=== PATIENT | female | born 1945 | race Caucasian/White ===

== ENCOUNTER 2016-06-23 11:53 | Outpatient (CLI) | payer MEDICARE | END 2016-06-23 11:54 | disposition home or self-care (01) | DX: Z12.31 Encounter for screening mammogram for malignant neoplasm of breast (principal) ==

== ENCOUNTER 2016-10-06 14:23 | Outpatient (CLI) | payer MEDICARE | END 2016-10-06 14:24 | disposition home or self-care (01) | DX: K50.90 Crohn's disease, unspecified, without complications (principal); E78.00 Pure hypercholesterolemia, unspecified; E55.9 Vitamin D deficiency, unspecified ==

== ENCOUNTER 2017-10-23 08:18 | Outpatient (CLI) | payer MEDICARE ==
[2017-10-23 10:47] LABS: CHOLESTEROL 248 mg/dL; GLUCOSE,FASTING 101 mg/dL (70-100); HDL CHOLESTEROL 123 mg/dL; LDL CHOLESTEROL,CALCULATED 116 mg/dL; LDL/HDL RATIO 0.9 (<4.4); VLDL CHOLESTEROL 9 mg/dL
== END 2017-10-23 08:19 | disposition home or self-care (01) ==
LOC: LAB.F 08:18
PROVIDERS: ATTEND Internal Medicine
DX: Z13.220 Encounter for screening for lipoid disorders (principal); Z13.1 Encounter for screening for diabetes mellitus
CPT/HCPCS: 36415; 80061; 82947; 83721

== ENCOUNTER 2017-12-24 14:31 | Outpatient (CLI) | payer MEDICARE ==
--- NOTE | 2017-12-26 08:50 | Mammography Report ---
Procedure Date: 12/24/2017 Accession Number: [id number] / [id number] Procedure: MARCELO - Screening Mammo Dig Bilat CPT Code: FULL RESULT: EXAM: Screening Mammo Dig Bilat DATE: 12/24/2017 2:52 PM CLINICAL HISTORY: 72-year-old female with family history of breast cancer in an aunt at unknown age. TECHNIQUE: Bilateral CC and MLO views were obtained. COMPARISON: 06/23/2016, 09/15/2014, 06/09/2013, 06/06/2012. FINDINGS: The breasts demonstrate heterogeneously dense fibroglandular parenchyma bilaterally. Coarse typically benign calcifications are seen in the right breast. There are no suspicious masses, clustered microcalcifications, or regions of architectural distortion in the right breast. In the inner lower quadrant of the left breast is a cluster of increasing microcalcifications in an area of overall stable architectural distortion. Additional views of this region are needed. IMPRESSION: Incomplete examination RECOMMENDATION: Additional evaluation as above. BIRADS CATEGORY 0: Incomplete examination STANDARD QUALIFYING STATEMENTS: 1. This examination was reviewed with the aid of Computer-Aided Detection (CAD). 2. A negative or benign imaging report should not delay biopsy if clinically suspicious findings are present. Consider surgical consultation if warrented. More than 5% of cancers are not identified by imaging. 3. Dense breasts may obscure an underlying neoplasm.
== END 2017-12-24 14:32 | disposition home or self-care (01) ==
LOC: DI 14:31
PROVIDERS: ATTEND Internal Medicine
DX: Z12.31 Encounter for screening mammogram for malignant neoplasm of breast (principal); Z80.3 Family history of malignant neoplasm of breast; Z78.0 Asymptomatic menopausal state
CPT/HCPCS: 77067

== ENCOUNTER 2017-12-24 14:34 | Outpatient (CLI) | payer MEDICARE ==
--- NOTE | 2017-12-25 09:29 | DEXA Report ---
Procedure Date: 12/24/2017 Accession Number: [id number] / [id number] Procedure: DEX - Dexa Spine and/or Hip CPT Code: FULL RESULT: EXAM: Dexa Spine and/or Hip DATE: 12/24/2017 3:15 PM CLINICAL HISTORY: MTOMPATIC MENOPAUSAL STATE/SCREENING FOR OSTEOPORO TECHNIQUE: Dual energy x-ray absorptiometry (DXA) was performed on a [employer] System. Regions measured are the AP Spine, femoral neck, and if needed forearm. COMPARISON: None. In accordance with the International Society for Clinical Densitometry (ISCD) guidelines, data from previous exams may be reanalyzed using current recommendations and techniques. This is done to allow a more accurate basis for comparison with the current study. FINDINGS: The data for the lumbar spine is as follows: BMD (g/cm/cm) T-SCORE Z-SCORE REGION L1 0.806 -2.7 -0.5 L2 0.846 -2.9 -0.7 L3 0.932 -2.2 0.0 L4 0.893 -2.6 -0.4 TOTAL 0.874 -2.6 -0.4 NOTE: All evaluable vertebrae are used for classification The data for the hip is as follows: BMD (g/cm/cm) T-SCORE Z-SCORE REGION Neck 0.689 -2.5 -0.4 TOTAL 0.737 -2.1 -0.2 NOTE: The femoral neck or total proximal femur, whichever is lowest, is used for classification. IMPRESSION: THE WHO CLASSIFICATION BASED ON THE INTERNATIONAL REFERENCE STANDARD IS OSTEOPOROSIS. THE FRACTURE RISK IS HIGH. RECOMMENDATION: Patients with diagnosis of osteoporosis or osteopenia should have regular bone mineral density assessment. For those eligible for Medicare, routine testing is allowed once every 2 years. Testing frequency can be increased for patients who have rapidly progressing disease or for those who are receiving medical therapy to restore bone mass. COMMENT: World Health Organization (WHO) definitions for osteoporosis and osteopenia: NORMAL BMD: T-score at -1.0 or higher, fracture risk is low OSTEOPENIA BMD: T-score between -1.0 and -2.5, fracture risk is increased. OSTEOPOROSIS BMD: T-score at -2.5 or lower, fracture risk is high. National Osteoporosis Foundation recommends: 1. Obtain adequate dietary calcium (at least 1200 mg per day) and vitamin D (400-800 international units per day). 2. Participate, as appropriate, in regular weightbearing and muscle-strengthening exercise. 3. Avoid tobacco use and reduce alcohol and caffeine intake. 4. For more detailed information see the website at www.NOF.org.
== END 2017-12-24 14:35 | disposition home or self-care (01) ==
LOC: DI 14:34
PROVIDERS: ATTEND Internal Medicine
DX: Z13.820 Encounter for screening for osteoporosis (principal); Z78.0 Asymptomatic menopausal state; M81.0 Age-related osteoporosis without current pathological fracture
CPT/HCPCS: 77080

== ENCOUNTER 2018-02-08 13:59 | Outpatient (CLI) | payer MEDICARE ==
--- NOTE | 2018-02-08 15:32 | Mammography Report ---
Reason: ABN MAMMO - LT SPEC VIEWS Procedure Date: 02/08/2018 Accession Number: [id number] / [id number] Procedure: MARCELO - Diag Special Views Dig LT CPT Code: FULL RESULT: EXAM: Special Views Dig LT DATE: 02/08/2018 2:55 PM CLINICAL HISTORY: Microcalcifications on screening mammogram TECHNIQUE: Left true lateral and magnification views. COMPARISON: 12/24/2017 FINDINGS: Microcalcifications described on the 12/24/2017 mammogram report are not definitely seen on magnification views. IMPRESSION: Probably benign. RECOMMENDATION: Six-month follow-up left mammogram to include magnification views. BIRADS CATEGORY 3: Probably benign STANDARD QUALIFYING STATEMENTS: 1. This examination was reviewed with the aid of Computer-Aided Detection (CAD). 2. A negative or benign imaging report should not delay biopsy if clinically suspicious findings are present. Consider surgical consultation if warrented. More than 5% of cancers are not identified by imaging. 3. Dense breasts may obscure an underlying neoplasm.
== END 2018-02-08 14:00 | disposition home or self-care (01) ==
LOC: DI 13:59
PROVIDERS: ATTEND Internal Medicine
DX: R92.0 Mammographic microcalcification found on diagnostic imaging of breast (principal)

== ENCOUNTER 2018-10-31 12:24 | Outpatient (CLI) | payer MEDICARE ==
--- NOTE | 2018-10-31 15:04 | Mammography Report ---
Reason: 6 MO F/U CALCIFICATION Procedure Date: 10/31/2018 Accession Number: [id number] / [id number] Procedure: MARCELO - Diagnostic Dig Bilat CPT Code: FULL RESULT: EXAM: Diagnostic Dig Bilat DATE: 10/31/2018 1:27 PM CLINICAL HISTORY: Follow-up possible microcalcifications. TECHNIQUE: (B) - Bilateral CC and MLO views were obtained. COMPARISON: 02/08/2018, 12/24/2017, 06/23/2016, 09/15/2014 PARENCHYMAL PATTERN: (D) - The breasts demonstrate heterogeneously dense fibroglandular parenchyma bilaterally. FINDINGS: There has been no significant interval change. There are no suspicious masses, calcifications, or areas of distortion. Again no definite microcalcifications are seen in the left lower inner quadrant. IMPRESSION: Negative examination. BI-RADS category 1. RECOMMENDATION: (ANNUAL) - Recommend routine annual screening mammography. BI-RADS CATEGORY: (1) - Negative. STANDARD QUALIFYING STATEMENTS: 1. This examination was not reviewed with the aid of Computer-Aided Detection (CAD). 2. A negative or benign imaging report should not preclude biopsy if clinically suspicious findings are present. 3. Dense breasts may obscure an underlying neoplasm. 4. This examination was reviewed with the aid of 3D breast imaging (tomosynthesis).
== END 2018-10-31 12:25 | disposition home or self-care (01) ==
LOC: DI 12:24
PROVIDERS: ATTEND Internal Medicine
DX: R92.8 Other abnormal and inconclusive findings on diagnostic imaging of breast (principal)
CPT/HCPCS: 77066; G0279; 77062

== ENCOUNTER 2019-02-18 07:46 | Outpatient (CLI) | payer MEDICARE ==
[2019-02-18 10:00] LABS: BASOPHILS # (AUTO) 0.1 10^3/uL (0.0-0.1); BASOPHILS % (AUTO) 2.1 %; EOSINOPHILS # (AUTO) 0.1 10^3/uL (0.0-0.7); EOSINOPHILS % (AUTO) 2.9 %; LYMPHOCYTES # (AUTO) 1.3 10^3/uL (1.5-3.5); LYMPHOCYTES % (AUTO) 33.7 %; MEAN CORPUSCULAR HGB CONC 31.8 g/dL (32.0-36.0); MEAN CORPUSCULAR VOLUME 94.2 fL (81.0-99.0); MEAN PLATELET VOLUME 10.6 fL (7.9-10.8); MONOCYTES # (AUTO) 0.3 10^3/uL (0.0-1.0); MONOCYTES % (AUTO) 8.4 %; NEUTROPHILS % (AUTO) 52.6 %; PLT - PLATELET COUNT 222 10^3/uL (130-450); RED BLOOD COUNT 4.34 10^6/uL (4.20-5.40); RED CELL DISTRIBUTION WIDTH 12.7 % (12.0-15.0); WHITE BLOOD COUNT 3.8 x10^3/uL (4.8-10.8)
[2019-02-18 10:11] LABS: HB2 TOTAL 13.7 g/dL; HEMOGLOBIN A1C 0.51 g/dL; HEMOGLOBIN A1C % 5.6 % (4.6-6.2)
[2019-02-18 10:32] LABS: ALBUMIN 4.2 g/dL (3.2-5.5); ALBUMIN/GLOBULIN RATIO 1.7 (1.0-2.2); ALKALINE PHOSPHATASE 65 IU/L (42-121); ALT ALANINE AMINOTRANSFERASE 18 IU/L (10-60); AST ASPARTATE AMINOTRANSFERASE 24 IU/L (10-42); BILIRUBIN,TOTAL 0.8 mg/dL (0.2-1.0); BUN - BLOOD UREA NITROGEN 17 mg/dL (6-20); CALCIUM 8.8 mg/dL (8.5-10.3); CARBON DIOXIDE - CO2 30 mmol/L (21-32); CHLORIDE 100 mmol/L (101-111); CHOL/HDL RATIO 1.8 (<4.4); CHOLESTEROL 244 mg/dL; CREATININE 0.5 mg/dL (0.4-1.0); GFR - MDRD 121 (>89); GLUCOSE 104 mg/dL (70-100); HDL CHOLESTEROL 134 mg/dL; SODIUM 137 mmol/L (135-145); TOTAL PROTEIN 6.7 g/dL (6.7-8.2)
== END 2019-02-18 07:47 | disposition home or self-care (01) ==
LOC: LAB.S 07:46
PROVIDERS: ATTEND Internal Medicine
DX: E78.5 Hyperlipidemia, unspecified (principal); R73.01 Impaired fasting glucose; K50.90 Crohn's disease, unspecified, without complications
CPT/HCPCS: 36415; 80053; 80061; 83036; 83721; 85025

== ENCOUNTER 2019-03-03 18:09 | Inpatient (IN) | payer MEDICARE ==
[2019-03-03 19:09] LABS: BASOPHILS # (AUTO) 0.1 10^3/uL (0.0-0.1); BASOPHILS % (AUTO) 0.7 %; EOSINOPHILS % (AUTO) 0.1 %; HGB - HEMOGLOBIN 14.7 g/dL (12.0-16.0); LYMPHOCYTES % (AUTO) 8.4 %; MEAN CORPUSCULAR HEMOGLOBIN 31.1 pg (27.0-31.0); MEAN CORPUSCULAR HGB CONC 33.5 g/dL (32.0-36.0); MEAN PLATELET VOLUME 10.5 fL (7.9-10.8); MONOCYTES # (AUTO) 0.4 10^3/uL (0.0-1.0); MONOCYTES % (AUTO) 3.6 %; NEUTROPHILS # (AUTO) 10.2 10^3/uL (1.5-6.6); NEUTROPHILS % (AUTO) 86.6 %; PLT - PLATELET COUNT 248 10^3/uL (130-450); RED BLOOD COUNT 4.72 10^6/uL (4.20-5.40); RED CELL DISTRIBUTION WIDTH 12.4 % (12.0-15.0); WHITE BLOOD COUNT 11.8 x10^3/uL (4.8-10.8)
[2019-03-03 19:22] LABS: ALBUMIN 4.8 g/dL (3.2-5.5); ALBUMIN/GLOBULIN RATIO 2.1 (1.0-2.2); BILIRUBIN,TOTAL 0.8 mg/dL (0.2-1.0); CALCIUM 9.5 mg/dL (8.5-10.3); CREATININE 0.6 mg/dL (0.4-1.0); TOTAL PROTEIN 7.1 g/dL (6.7-8.2)
[2019-03-03 20:33] LABS: GLUCOSE, URINE (UA) NEGATIVE (NEGATIVE); KETONES,URINE (UA) 15 mg/dL (NEGATIVE); LEUKOCYTE ESTERASE, URINE NEGATIVE (NEGATIVE); NITRITE,URINE NEGATIVE (NEGATIVE); OCCULT BLOOD,URINE TRACE-INTA (NEGATIVE); PH,URINE 5.5 PH (5.0-7.5); PROTEIN,URINE NEGATIVE (NEGATIVE); UROBILINOGEN,URINE 0.2 (NORMAL) E.U./dL (NORMAL)
[2019-03-03] MEDS ORDERED: ONDANSETRON 4 MG/2 ML VIAL IVP STA (20:33)
[2019-03-03] MEDS ORDERED: SODIUM CHLORIDE 0.9% 1,000 ML IV ONE ×2 (20:33→21:10)
[2019-03-03] MEDS ORDERED: MORPHINE 2 MG/ML CARPUJECT IVP STA (20:33)
[2019-03-03 20:35] LABS: BILIRUBIN,URINE NEGATIVE (NEGATIVE); CLARITY,URINE CLEAR (CLEAR); ICTOTEST,URINE NEGATIVE
--- NOTE | 2019-03-03 20:36 | ED Physician Documentation ---
PD HPI ABD PAIN - Stated complaint Stated Complaint: ABD PAIN - Chief complaint Chief Complaint: Abd Pain - History obtained from History obtained from: Patient - History of Present Illness Timing - onset: Today (since this morning) Timing - duration: Days (1) Timing - details: Gradual onset Pain level max: 7 Pain level now: 7 Severity Comments: moderate severity Quality: Sharp Location: LLQ Radiation: Lower back, Left flank, Other Improved by: No: Eating, Laying still, Vomiting, BM Associated symptoms: Nausea, Vomiting, Diarrhea. No: Hematemesis, Constipation, Melena, Hematochezia, Dysuria, Hematuria, Dizzy, Near syncope / syncope, Loss of appetite, Weight loss, Vaginal bleeding Similar symptoms before: Other (has a hx of Crohns but reports pain today is worse than normal) Recently seen: Not recently seen PD PAST MEDICAL HISTORY - Past Medical History Cardiovascular: None Respiratory: None Endocrine/Autoimmune: None GI: Colon polyps, Chronic diarrhea, Crohn's disease : Kidney stones HEENT: Dental implants Psych: None Musculoskeletal: Osteoarthritis, Gout Derm: Eczema - Past Surgical History General: Bowel surgery, Colonoscopy HEENT: Tonsil/Adenoidectomy Derm: Skin cancer surgery - Present Medications Home Medications: Ambulatory Orders Medication Instructions Recorded Confirmed Cholecalciferol (Vitamin D3) 2,000 unit PO DAILY 06/08/14 06/08/14 [Vitamin D] HYDROcod/ACETAM 5/325 [[place] 5/325] 1 - 2 ea PO Q6H PRN #20 tablet 06/10/15 - Allergies Allergies/Adverse Reactions: Allergies Allergy/AdvReac Type Severity Reaction Status Date / Time No Known Drug Allergies Allergy Verified 06/08/14 09:28 - Social History Does the pt smoke?: No Smoking Status: Never smoker Results - Vitals Vitals: Vital Signs - 24 hr 03/03/19 03/03/19 18:50 20:26 Temperature 36.4 C L 36.7 C Heart Rate 92 91 Respiratory 18 17 Rate Blood Pressure 147/86 H 158/86 H O2 Saturation 100 98 Oxygen O2 Source Room air - Labs Labs: Laboratory Tests 03/03/19 03/03/19 03/03/19 18:55 18:55 20:20 WBC 11.8 H RBC 4.72 Hgb 14.7 Hct 43.9 MCV 93.0 MCH 31.1 H MCHC 33.5 RDW 12.4 Plt Count 248 MPV 10.5 Neut # (Auto) 10.2 H Lymph # (Auto) 1.0 L Wilson # (Auto) 0.4 Eos # (Auto) 0.0 Baso # (Auto) 0.1 Absolute Nucleated RBC 0.00 Nucleated RBC % 0.0 Sodium 141 Potassium 4.4 Chloride 100 L Carbon Dioxide 30 Anion Gap 11.0 BUN 14 Creatinine 0.6 Estimated GFR (MDRD) 98 Glucose 129 H Calcium 9.5 Total Bilirubin 0.8 AST 25 ALT 19 Alkaline Phosphatase 67 Total Protein 7.1 Albumin 4.8 Globulin 2.3 Albumin/Globulin Ratio 2.1 Lipase 38 Urine Color YELLOW Urine Clarity CLEAR Urine pH 5.5 Ur Specific [place] >=1.030 H Urine Protein NEGATIVE Urine Glucose (UA) NEGATIVE Urine Ketones 15 H Urine Occult Blood TRACE-INTA Urine Nitrite NEGATIVE Urine Bilirubin NEGATIVE Urine Urobilinogen 0.2 (NORMAL) Ur Leukocyte Esterase NEGATIVE Ur Microscopic Review NOT INDICATED Urine Culture Comments NOT INDICATED - Rads (name of study) CT abd/pelvis Radiology: Final report received, Discussed with rads, See rad report PD MEDICAL DECISION MAKING - ED course Complexity details: reviewed old records, reviewed results, re-evaluated patient, considered differential, d/w patient, d/w family ED course: ddx- kidney stone, diverticulitis, SBO, AAA 73 y/o F with hx of Crohn's, chronic diarrhea, with vomiting today - LLQ tenderness on examination, mild leukocytosis, given IV fluids Reports hx of kidney stones and feels this might be a stone but CT abd/pelvis shows SBO with a transition point likely due to adhesions. Consulted Dr. Fletcher who will evaluate the pt. She is feeling better after analgesics and antiemetics. Placed an NGT. Give maintenance fluids and admitted to medicine - Critical Care Time(min): 30 Time Includes: Direct patient care, Review records, Reassess patient, Document care, Coordinate care, Medical consult Data interpretation: Labs Departure - Departure Disposition: 66 [facility] DC/Xfer Clinical Impression: Small bowel obstruction due to adhesions Condition: Stable Record reviewed to determine appropriate education?: Yes
[2019-03-03] MEDS ORDERED: IOVERSOL 320 100 ML VIAL IVP ONE (20:52)
[2019-03-03] MEDS: IOVERSOL 320 100 ML VIAL IVP ONE (20:54)
--- NOTE | 2019-03-03 21:32 | CT Report ---
Reason: LLQ pain, tenderness, vomiting, hx of crohns Procedure Date: 03/03/2019 Accession Number: [id number] / [id number] Procedure: CT - Abdomen/Pelvis W CPT Code: FULL RESULT: EXAM: CT ABDOMEN AND PELVIS EXAM DATE: 03/03/2019 08:58 PM. CLINICAL HISTORY: LLQ pain, tenderness, vomiting, hx of crohns. COMPARISONS: ABDOMEN/PELVIS W/O 05/13/2014 7:00 PM. TECHNIQUE: Routine helical CT imaging was performed through the abdomen and pelvis. IV contrast: Optiray 320, 100 cc. Enteric contrast: No. Reconstructions: Coronal and sagittal. In accordance with CT protocol optimization, one or more of the following dose reduction techniques were utilized for this exam: automated exposure control, adjustment of mA and/or KV based on patient size, or use of iterative reconstructive technique. FINDINGS: Lung Bases: Unremarkable. Liver: View scattered hepatic cysts are not significantly changed compared to the prior exam. Trace amount of perihepatic fluid. Gallbladder/Bile Ducts: Unremarkable. Spleen: Normal. Pancreas: Normal. Adrenal Glands: Normal. Kidneys: Normal. No masses or hydronephrosis. Peritoneal Cavity/Bowel: Dilated small bowel throughout much of the abdomen, with transition point in the pelvis, image number 64 Of series 4. Bowel measures up to 3.8 cm in caliber. Patient is status post subtotal colectomy. Anastomotic bowel sutures are present in the pelvis. No free air. Pelvic Organs: Urinary bladder and uterus are unremarkable. Trace amount of free fluid in the pelvis. Vasculature: No aneurysms or other significant abnormality. Bones: No significant abnormality. Other: None. IMPRESSION: Small bowel obstruction with transition point in the pelvis, but separate from the bowel anastomotic site. Suspect adhesion. No free air. Trace amount of free fluid and perihepatic fluid. RADIA The call report notification system was initiated by Dr. Abdoulaye Marie at 09:26 PM on 03/03/2019. The above call report findings were discussed with Kena Turcios by Dr. Abdoulaye Marie at 09:30 PM on 03/03/2019.
[2019-03-03] MEDS ORDERED: MIDAZOLAM 2 MG/2 ML VIAL IVP STA (21:53)
[2019-03-03] MEDS: SODIUM CHLORIDE 0.9% 1,000 ML IV SCH (22:49)
--- NOTE | 2019-03-03 23:46 | HISTORY & PHYSICAL EXAMINATION ---
Chief Complaint - Chief Complaint Chief Complaint: abd pain History of Present Illness - Admitted From Admitted From:: [facility] - History Obtained From Records Reviewed: yes History obtained from: patient - History of Present Illness HPI Comment/Other: Patient seen on 03/03/19 around 23:))pm Patient is a 73 y/o female with Crohns disease s/p partial colectomy in 1990 who presented to the ED with complain of diffuse abdominal pain which is throbbing in nature with radiation to her back. It stated today. Yesterday she had dinner consisting of mussels, clams and veggies. She had diarrhea yesterday but was not alarmed because she has frequent bouts of diarrhea in relation to her crohns. However she decided to come to the ED when her pain seemed to be getting worse. She thinks she may have had a similar episode in 2016. She denies chest pain or dyspnea. She started getting nauseous and vomited upon arrival to the ED. Work up included a CT of the abd/pelvis which showed a small bowel obstruction. She is not on any medications for crohn's and has been fairly well controlled without. As a result she is being admitted for further treatment. History - Past Medical History Cardiovascular: reports: None Respiratory: reports: None Endocrine/Autoimmune: reports: None GI: reports: Colon polyps, Chronic diarrhea, Crohn's disease : reports: Kidney stones HEENT: reports: Dental implants Psych: reports: None Musculoskeletal: reports: Osteoarthritis, Gout Derm: reports: Eczema MRSA Hx?: No - Past Surgical History General: reports: Bowel surgery (partial colectomy), Colonoscopy HEENT: reports: Tonsil/Adenoidectomy Derm: reports: Skin cancer surgery - Family & Social History Family History: Mother: , CVA/TIA Living arrangement: At home Living Situation: With spouse/s.o. Social History Notes: Denies tobacco or illicit drugs use. Usually drinks 1 glass of wine with dinner. - POLST Patient has POLST: No POLST Status: Full Code Meds/Allgy - Home Medications Home Medications: Ambulatory Orders Medication Instructions Recorded Confirmed Cholecalciferol (Vitamin D3) 2,000 unit PO DAILY 06/08/14 06/08/14 [Vitamin D] HYDROcod/ACETAM 5/325 [[place] 5/325] 1 - 2 ea PO Q6H PRN #20 tablet 06/10/15 - Allergies Allergies/Adverse Reactions: Allergies Allergy/AdvReac Type Severity Reaction Status Date / Time No Known Drug Allergies Allergy Verified 06/08/14 09:28 Review of Systems - Constitutional Constitutional: reports: Chills. denies: Fatigue, Fever - Eyes Eyes: denies: Blurred vision, Vision loss, Dipolpia - Ears, Nose & Throat Ears, Nose & Throat: denies: Ear pain, Vertigo, Sore throat, Hoarseness - Cardiovascular Cariovascular: denies: Irregular heart rate, Palpitations, Chest pain, Edema, Lightheadedness, Syncope, Exertional dyspnea, Decr. exercise tolerance - Respiratory Respiratory: denies: Cough, Sputum production, Wheezing, Hemoptysis, Orthopnea, SOB at rest, SOB with exertion - Gastrointestinal Gastrointestinal: reports: Abdominal pain, Diarrhea, Nausea, Vomiting. denies: Abdominal distention, Constipation, Rectal bleeding, Black stools, Coffee grounds emesis, Reflux/heartburn - Genitourinary Genitourinary: denies: Dysuria, Frequency, Urgency, Hematuria - Musculoskeletal Musculoskeletal: denies: Muscle pain, Back pain, Muscle aches - Integumentary Integumentary: denies: Rash, Pruritis, Lesions - Neurological Neurological: denies: General weakness, Focal weakness, Headache, Dizziness - Psychiatric Psychiatric: denies: Depression, Anxiety - Endocrine Endocrine: denies: Polyuria, Polydypsia - Hematologic/Lymphatic Hematologic/Lymphatic: denies: Anemia, Bruising, Petechiae Prior Level of Functionality: Patient is independent of activities of daily living Exam - Vital Signs Vital Signs: Vital Signs x48h Temp Pulse Resp BP Pulse Ox 03/03/19 22:02 82 18 133/67 H 98 03/03/19 20:26 36.7 C 91 17 158/86 H 98 03/03/19 18:50 36.4 C L 92 18 147/86 H 100 - Physical Exam General Appearance: positive: Moderate distress. negative: Anxious, Lethargic Eyes Bilateral: positive: Normal inspection, PERRL, EOMI ENT: positive: ENT inspection nml, Pharynx nml Neck: positive: Nml inspection, Trachea midline. negative: No JVD Respiratory: positive: Chest non-tender, No respiratory distress, Breath sounds nml. negative: Wheezes, Rales, Rhonchi Cardiovascular: positive: Regular rate & rhythm, No murmur Abdomen: positive: No organomegaly, No distention, Tenderness, Other (decreased bowel sounds). negative: Guarding, Rebound Back: positive: Nml inspection Skin: positive: Color nml, No rash, Warm, Dry Extremities: positive: Non-tender, Full ROM, Nml appearance, No pedal edema Neurologic/Psychiatric: positive: Oriented x3, CN's nml (2-12), Motor nml, Sensation nml, Mood/affect nml Conclusion/Plan - Problem List (1) Small bowel obstruction due to adhesions Conclusion/Plan: NPO. IV hydration. IV Pain management and management of nausea. General surgery is away of patient's presentation (2) Crohn disease Conclusion/Plan: s/p partial colectomy in 1990. Patient has been stable since. Not on any medication - Lab Results Fish Bones: 03/03/19 18:55 03/03/19 18:55 Core Measures - Anticipated LOS I expect patient to be DC'd or transferred within 96 hours.: Yes - DVT/VTE - Prophylaxis VTE/DVT Device ordered at admit?: Yes
[2019-03-03] MEDS ORDERED: HYDROmorphone 2 MG/ML VIAL IVP PRN (23:48)
[2019-03-04] MEDS: SODIUM CHLORIDE FLUSH 0.9% 10 ML SYRINGE IVP SCH ×4 (02:28→23:31)
[2019-03-04] MEDS: SODIUM CHLORIDE 0.9% 1,000 ML IV SCH ×3 (02:33→10:48)
[2019-03-04] MEDS: SODIUM CHLORIDE FLUSH 0.9% 10 ML SYRINGE IVP PRN ×2 (04:45→06:23)
[2019-03-04 04:58] LABS: BASOPHILS # (AUTO) 0.1 10^3/uL (0.0-0.1); BASOPHILS % (AUTO) 0.6 %; EOSINOPHILS # (AUTO) 0.1 10^3/uL (0.0-0.7); EOSINOPHILS % (AUTO) 0.9 %; HGB - HEMOGLOBIN 13.6 g/dL (12.0-16.0); LYMPHOCYTES # (AUTO) 0.4 10^3/uL (1.5-3.5); LYMPHOCYTES % (AUTO) 4.3 %; MEAN CORPUSCULAR HEMOGLOBIN 31.4 pg (27.0-31.0); MEAN CORPUSCULAR HGB CONC 33.7 g/dL (32.0-36.0); MEAN CORPUSCULAR VOLUME 93.1 fL (81.0-99.0); MEAN PLATELET VOLUME 10.7 fL (7.9-10.8); MONOCYTES # (AUTO) 0.3 10^3/uL (0.0-1.0); MONOCYTES % (AUTO) 3.8 %; NEUTROPHILS # (AUTO) 8.1 10^3/uL (1.5-6.6); PLT - PLATELET COUNT 196 10^3/uL (130-450); RED BLOOD COUNT 4.33 10^6/uL (4.20-5.40); RED CELL DISTRIBUTION WIDTH 12.3 % (12.0-15.0)
[2019-03-04 05:37] LABS: CALCIUM 8.9 mg/dL (8.5-10.3); CREATININE 0.5 mg/dL (0.4-1.0)
[2019-03-04] MEDS: PANTOPRAZOLE 40 MG VIAL IVP SCH (06:22)
[2019-03-04] MEDS: POLYETHYLENE GLYCOL 3350 17 GM PACKET PO SCH (08:14)
[2019-03-04] MEDS ORDERED: HYDROmorphone 0.5 MG/0.5 ML SYRINGE IVP PRN ×2 (09:00→18:24)
[2019-03-04] MEDS ORDERED: IOVERSOL 320 100 ML VIAL IVP ONE (09:25)
[2019-03-04] MEDS ORDERED: IOVERSOL 320 50 ML VIAL ONE (09:26)
[2019-03-04] MEDS: ONDANSETRON 4 MG/2 ML VIAL IVP PRN (10:21)
--- NOTE | 2019-03-04 12:40 | CT Report ---
Reason: CHECK FOR RESOLUTION OF SBO Procedure Date: 03/04/2019 Accession Number: [id number] / [id number] Procedure: CT - Abdomen/Pelvis W CPT Code: FULL RESULT: EXAM: CT ABDOMEN AND PELVIS EXAM DATE: 03/04/2019 12:11 PM. CLINICAL HISTORY: CHECK FOR RESOLUTION OF SBO. COMPARISONS: CT abdomen and pelvis 03/03/2019. TECHNIQUE: Routine helical CT imaging was performed through the abdomen and pelvis. IV contrast: OPTI 320 100ML. Enteric contrast: No. Reconstructions: Coronal and sagittal. In accordance with CT protocol optimization, one or more of the following dose reduction techniques were utilized for this exam: automated exposure control, adjustment of mA and/or KV based on patient size, or use of iterative reconstructive technique. FINDINGS: Lung Bases: Unremarkable. Liver: No suspicious abnormality. Multiple small hepatic cysts of no significance. Gallbladder/Bile Ducts: Unremarkable. Spleen: Normal. Pancreas: Normal. Adrenal Glands: Normal. Kidneys: Normal. No masses or hydronephrosis. Peritoneal Cavity/Bowel: There has been interval development of mild manny-hepatic ascites. There is no other evidence of ascites. There is been a subtotal colectomy. There appears to be a distal colonic-ileal anastomosis. There is no significant proximal jejunal dilatation. Beyond this point there is marked mid and distal small bowel dilatation with probable transition point in the distal ileum near or at the ileocolonic anastomosis (axial image 61, series 3 and coronal image 26, series 5). The rectosigmoid colon is decompressed. No evidence of free air or pneumatosis Pelvic Organs: Normal. The bladder and visualized pelvic organs are within normal limits. Vasculature: No aneurysms or other significant abnormality. Bones: No significant abnormality. Other: None. IMPRESSION: 1. Mechanical distal small bowel obstruction with transition point presumably at ileocolic surgical anastomosis, as described above. 2. No evidence of pneumoperitoneum or pneumatosis. 3. Interval development of mild perihepatic ascites. RADIA
[2019-03-04] MEDS: D5.45NS W/20 MEQ KCL 1,000 ML IV SCH (13:41)
[2019-03-04] MEDS ORDERED: IOVERSOL 320 50 ML VIAL PO ONE (14:45)
[2019-03-04] MEDS: IOVERSOL 320 100 ML VIAL IVP ONE (14:46)
--- NOTE | 2019-03-04 14:59 | PROVIDER PROGRESS NOTE ---
Subjective - Prog Note Date Prog Note Date: 03/04/19 - Subjective Pt reports feeling: Improved Subjective: clinically pt report her abdominal pain is better, and she did not nausea and vomiting in the morning. but new CT of abdomen still reveals pt has SBO. Current Medications - Current Medications Current Medications: Active Medications Hydromorphone HCl (Dilaudid Inj Syringe) 0.5 mg IVP Q2H PRN PRN Reason: PAIN Potassium Chloride/Dextrose/Sod Cl (D5.45ns W/20 Meq Kcl) 1,000 mls @ 100 mls/hr IV .Q10H [facility] Last Admin: 03/04/19 13:41 Dose: 100 mls/hr Ondansetron HCl (Zofran Inj) 4 mg IVP Q6HR PRN PRN Reason: Nausea / Vomiting Last Admin: 03/04/19 10:21 Dose: 4 mg Pantoprazole Sodium (Protonix) 40 mg IVP QDAC [facility] Last Admin: 03/04/19 06:22 Dose: 40 mg Polyethylene Glycol (Miralax) 17 gm PO DAILY [facility] Last Admin: 03/04/19 08:14 Dose: Not Given Sodium Chloride (Normal Saline Flush 0.9%) 10 ml IVP PRN PRN PRN Reason: NEEDED PER PROVIDER ORDERS Last Admin: 03/04/19 06:23 Dose: 10 ml Sodium Chloride (Normal Saline Flush 0.9%) 10 ml IVP 0100,0900,1700 [facility] Last Admin: 03/04/19 08:18 Dose: 10 ml Cholecalciferol (Vitamin D3) [Vitamin D] 2,000 unit PO DAILY 06/08/14 D-Mannose [Mannxtra] 1 tab PO UD 03/04/19 Multivitamin,Therapeutic [Thera] 1 each PO DAILY 03/04/19 Objective - Vital Signs/Intake & Output Reviewed Vital Signs: Yes Vital Signs: Vital Signs x48h Temp Pulse Resp BP Pulse Ox 03/04/19 11:51 37.4 C 87 18 138/60 H 96 03/04/19 07:49 37.6 C H 86 16 140/65 H 95 Intake & Output: Intake & Output 03/01/19 03/02/19 03/03/19 03/04/19 23:59 23:59 23:59 23:59 Intake Total 1999 2268 Output Total 900 Balance 1999 1369 - Objective General Appearance: positive: No acute distress, Alert. negative: Lethargic Eyes Bilateral: positive: Normal inspection, PERRL, No lid inflammation, Conjun ctivae nml ENT: positive: ENT inspection nml, Pharynx nml, No signs of dehydration. negative: Purulent nasal drainage, Pharyngeal erythema, Oral lesions Neck: positive: Nml inspection, Thyroid nml, Trachea midline. negative: Thyromegaly, Lymphadenopathy (R), Lymphadenopathy (L), Stiff neck, Swelling/bruising, Tracheal deviation Respiratory: positive: Chest non-tender, No respiratory distress, Breath sounds nml. negative: Wheezes, Rales, Rhonchi Cardiovascular: positive: Regular rate & rhythm, No murmur, No gallop. negative: Irregularly irregular, Extrasystoles, Tachycardia, Bradycardia, JVD present, Systolic murmur, Diastolic murmur Peripheral Pulses: 2+ Radial (R), 2+ Radial (L), 2+ Dorsalis pedis (R), 2+ Dorsalis pedis (L) Abdomen: positive: Non-tender, No organomegaly, No distention, Abnml bowel sounds (hypoactive bowel sound). negative: Tenderness, Guarding, Rebound Back: positive: Nml inspection. negative: CVA tenderness (R), CVA tenderness (L) Skin: positive: Color nml, No rash, Warm, Dry. negative: Cyanosis, Diaphoresis, Pallor Extremities: positive: Non-tender, Full ROM, Nml appearance. negative: Calf tenderness, Joint swelling, Penny's sign/cords Neurologic/Psychiatric: positive: Oriented x3, Motor nml, Sensation nml, Mood/affect nml. negative: Weakness, Sensory loss, Facial droop, Slurred/abnml speech, Depressed mood/affect - Lab Results Fish Bones: 03/04/19 04:35 03/04/19 04:35 Other Labs: Lab Results x24hrs 03/04/19 03/04/19 03/03/19 Range/Units 04:35 04:35 20:20 WBC 9.0 (4.8-10.8) x10^3/uL RBC 4.33 (4.20-5.40) 10^6/uL Hgb 13.6 (12.0-16.0) g/dL Hct 40.3 (37.0-47.0) % MCV 93.1 (81.0-99.0) fL MCH 31.4 H (27.0-31.0) pg MCHC 33.7 (32.0-36.0) g/dL RDW 12.3 (12.0-15.0) % Plt Count 196 (130-450) 10^3/uL MPV 10.7 (7.9-10.8) fL Neut # (Auto) 8.1 H (1.5-6.6) 10^3/uL Lymph # (Auto) 0.4 L (1.5-3.5) 10^3/uL [place] # (Auto) 0.3 (0.0-1.0) 10^3/uL Eos # (Auto) 0.1 (0.0-0.7) 10^3/uL Baso # (Auto) 0.1 (0.0-0.1) 10^3/uL Absolute Nucleated RBC 0.00 x10^3/uL Nucleated RBC % 0.0 /100WBC Sodium 143 (135-145) mmol/L Potassium 3.5 (3.5-5.0) mmol/L Chloride 109 (101-111) mmol/L Carbon Dioxide 25 (21-32) mmol/L Anion Gap 9.0 (6-13) BUN 14 (6-20) mg/dL Creatinine 0.5 (0.4-1.0) mg/dL Estimated GFR (MDRD) 121 (>89) Glucose 155 H (70-100) mg/dL Calcium 8.9 (8.5-10.3) mg/dL Total Bilirubin (0.2-1.0) mg/dL AST (10-42) IU/L ALT (10-60) IU/L Alkaline Phosphatase (42-121) IU/L Total Protein (6.7-8.2) g/dL Albumin (3.2-5.5) g/dL Globulin (2.1-4.2) g/dL Albumin/Globulin Ratio (1.0-2.2) Lipase (22-51) U/L Urine Color YELLOW Urine Clarity CLEAR (CLEAR) Urine pH 5.5 (5.0-7.5) PH Ur Specific [place] >=1.030 H (1.002-1.030) Urine Protein NEGATIVE (NEGATIVE) mg/dL Urine Glucose (UA) NEGATIVE (NEGATIVE) mg/dL Urine Ketones 15 H (NEGATIVE) mg/dL Urine Occult Blood TRACE-INTA (NEGATIVE) Urine Nitrite NEGATIVE (NEGATIVE) Urine Bilirubin NEGATIVE (NEGATIVE) Urine Urobilinogen 0.2 (NORMAL) (NORMAL) E.U./dL Ur Leukocyte Esterase NEGATIVE (NEGATIVE) Ur Microscopic Review NOT INDICATED Urine Culture Comments NOT INDICATED 03/03/19 03/03/19 Range/Units 18:55 18:55 WBC 11.8 H (4.8-10.8) x10^3/uL RBC 4.72 (4.20-5.40) 10^6/uL Hgb 14.7 (12.0-16.0) g/dL Hct 43.9 (37.0-47.0) % MCV 93.0 (81.0-99.0) fL MCH 31.1 H (27.0-31.0) pg MCHC 33.5 (32.0-36.0) g/dL RDW 12.4 (12.0-15.0) % Plt Count 248 (130-450) 10^3/uL MPV 10.5 (7.9-10.8) fL Neut # (Auto) 10.2 H (1.5-6.6) 10^3/uL Lymph # (Auto) 1.0 L (1.5-3.5) 10^3/uL [place] # (Auto) 0.4 (0.0-1.0) 10^3/uL Eos # (Auto) 0.0 (0.0-0.7) 10^3/uL Baso # (Auto) 0.1 (0.0-0.1) 10^3/uL Absolute Nucleated RBC 0.00 x10^3/uL Nucleated RBC % 0.0 /100WBC Sodium 141 (135-145) mmol/L Potassium 4.4 (3.5-5.0) mmol/L Chloride 100 L (101-111) mmol/L Carbon Dioxide 30 (21-32) mmol/L Anion Gap 11.0 (6-13) BUN 14 (6-20) mg/dL Creatinine 0.6 (0.4-1.0) mg/dL Estimated GFR (MDRD) 98 (>89) Glucose 129 H (70-100) mg/dL Calcium 9.5 (8.5-10.3) mg/dL Total Bilirubin 0.8 (0.2-1.0) mg/dL AST 25 (10-42) IU/L ALT 19 (10-60) IU/L Alkaline Phosphatase 67 (42-121) IU/L Total Protein 7.1 (6.7-8.2) g/dL Albumin 4.8 (3.2-5.5) g/dL Globulin 2.3 (2.1-4.2) g/dL Albumin/Globulin Ratio 2.1 (1.0-2.2) Lipase 38 (22-51) U/L Urine Color Urine Clarity (CLEAR) Urine pH (5.0-7.5) PH Ur Specific [place] (1.002-1.030) Urine Protein (NEGATIVE) mg/dL Urine Glucose (UA) (NEGATIVE) mg/dL Urine Ketones (NEGATIVE) mg/dL Urine Occult Blood (NEGATIVE) Urine Nitrite (NEGATIVE) Urine Bilirubin (NEGATIVE) Urine Urobilinogen (NORMAL) E.U./dL Ur Leukocyte Esterase (NEGATIVE) Ur Microscopic Review Urine Culture Comments ABX Reporting Has patient been on IV antibiotics over the past 48 hours?: No Assessment/Plan - Problem List (1) Small bowel obstruction due to adhesions Impression: 03/04 although clinically pt had improved, reduced abdominal pain, no N/V now. but new CT of abdomen today morning reveals SBO surgeon knew the updated CT result continue NPO encourage ambulate IVF of D5 pain control continue NG tube now (2) Crohn disease Conclusion/Plan: stable. pt is not on any medication. pt report she is s/p partial colectomy in 1990.
--- NOTE | 2019-03-04 15:12 | ANESTHESIA ---
Pre-Anesthesia VS, & Labs - Diagnosis bowel obstruction - Procedure exploratory laparotomy Vital Signs: Temp Pulse Resp BP Pulse Ox 37.4 C 87 18 138/60 H 96 03/04/19 11:51 03/04/19 11:51 03/04/19 11:51 03/04/19 11:51 03/04/19 11:51 Height 5 ft 5 in Weight (kg) 52 kg Body Mass Index 19.1 - Is Patient ?: No - Lab Results Current Lab Results: Laboratory Tests 03/04/19 04:35: Sodium 143, Potassium 3.5, Chloride 109, Carbon Dioxide 25, Anion Gap 9.0, BUN 14, Creatinine 0.5, Estimated GFR (MDRD) 121, Glucose 155 H, Calcium 8.9 03/04/19 04:35: WBC 9.0, RBC 4.33, Hgb 13.6, Hct 40.3, MCV 93.1, MCH 31.4 H, MCHC 33.7, RDW 12.3, Plt Count 196, MPV 10.7, Neut # (Auto) 8.1 H, Lymph # (Auto) 0.4 L, [place] # (Auto) 0.3, Eos # (Auto) 0.1, Baso # (Auto) 0.1, Absolute Nucleated RBC 0.00, Nucleated RBC % 0.0 03/03/19 18:55: Sodium 141, Potassium 4.4, Chloride 100 L, Carbon Dioxide 30, Anion Gap 11.0, BUN 14, Creatinine 0.6, Estimated GFR (MDRD) 98, Glucose 129 H, Calcium 9.5, Total Bilirubin 0.8, AST 25, ALT 19, Alkaline Phosphatase 67, Total Protein 7.1, Albumin 4.8, Globulin 2.3, Albumin/Globulin Ratio 2.1, Lipase 38 03/03/19 18:55: WBC 11.8 H, RBC 4.72, Hgb 14.7, Hct 43.9, MCV 93.0, MCH 31.1 H, MCHC 33.5, RDW 12.4, Plt Count 248, MPV 10.5, Neut # (Auto) 10.2 H, Lymph # (Auto) 1.0 L, [place] # (Auto) 0.4, Eos # (Auto) 0.0, Baso # (Auto) 0.1, Absolute Nucleated RBC 0.00, Nucleated RBC % 0.0 Fish Bones: 03/04/19 04:35 03/04/19 04:35 Home Medications and Allergies Home Medications: Ambulatory Orders D-Mannose [Mannxtra] 1 tab PO UD 03/04/19 Multivitamin,Therapeutic [Thera] 1 each PO DAILY 03/04/19 Active Medications Hydromorphone HCl (Dilaudid Inj Syringe) 0.5 mg IVP Q2H PRN PRN Reason: PAIN Potassium Chloride/Dextrose/Sod Cl (D5.45ns W/20 Meq Kcl) 1,000 mls @ 100 mls/hr IV .Q10H [facility] Last Admin: 03/04/19 13:41 Dose: 100 mls/hr Ondansetron HCl (Zofran Inj) 4 mg IVP Q6HR PRN PRN Reason: Nausea / Vomiting Last Admin: 03/04/19 10:21 Dose: 4 mg Pantoprazole Sodium (Protonix) 40 mg IVP QDAC [facility] Last Admin: 03/04/19 06:22 Dose: 40 mg Polyethylene Glycol (Miralax) 17 gm PO DAILY [facility] Last Admin: 03/04/19 08:14 Dose: Not Given Sodium Chloride (Normal Saline Flush 0.9%) 10 ml IVP PRN PRN PRN Reason: NEEDED PER PROVIDER ORDERS Last Admin: 03/04/19 06:23 Dose: 10 ml Sodium Chloride (Normal Saline Flush 0.9%) 10 ml IVP 0100,0900,1700 [facility] Last Admin: 03/04/19 08:18 Dose: 10 ml Cholecalciferol (Vitamin D3) [Vitamin D] 2,000 unit PO DAILY 06/08/14 D-Mannose [Mannxtra] 1 tab PO UD 03/04/19 Multivitamin,Therapeutic [Thera] 1 each PO DAILY 03/04/19 Allergies/Adverse Reactions: Allergies Allergy/AdvReac Type Severity Reaction Status Date / Time No Known Drug Allergies Allergy Verified 06/08/14 09:28 Anes History & Medical History - Anesthetic History Anesthesia Complications: reports: No previous complications Family history of Anesthesia Complications: Denies Family history of Malignant Hyperthermia: Denies - Medical History Cardiovascular: reports: None Pulmonary: reports: None Gastrointestinal: reports: Colon polyps, Chronic diarrhea, Crohn's disease Urinary: reports: Kidney stones Musculoskeletal: reports: Osteoarthritis, Gout Endocrine/Autoimmune: reports: None Skin: reports: Eczema Smoking Status: Never smoker - Surgical History General: Bowel surgery (partial colectomy), Colonoscopy Eyes Ears Nose Throat (EENT): Tonsil/Adenoidectomy Dermatologic: Skin cancer surgery Exam General: Alert Mouth Openin Fingerbreadth Mallampati classification: III Thyromental Distance: 4-6 cm Respiratory: Lungs clear Cardiovascular: Regular rate Plan Anesthesia Type: General, Transverse Abdominis Plane (TAP) Block Regional Block: Per Surgeon's request for Post Op pain control Consent for Procedure(s) Verified and Reviewed: Yes Code Status: Attempt Resuscitation ASA classification: 2-Mild systemic disease Is this case an emergency?: No
--- NOTE | 2019-03-04 16:44 | CONSULTATION NOTE ---
Referring Provider Name of Referring Provider:: Dr. Kena Turcios Consult Date: 03/04/19 Chief Complaint - Chief Complaint Chief Complaint: Abdominal pain and no bowel movement in a patient who normally has diarrhea History of Present Illness - Admitted From Admitted From:: [facility] emergency department[facility]uated in [facility]13 - History Obtained From Records Reviewed: Yes History obtained from: Patient and chart Exam Limitations: None - History of Present Illness HPI Comment/Other: Dr. Kena Turcios called and asked that evaluate this patient for an adhesive small bowel obstruction. The patient many years ago was diagnosed with Crohn's disease and had a subtotal colectomy with ileosigmoid anastomosis. Since that time she is had one hospitalization for a adhesive small bowel obstruction that resolved on its own. Nausea and vomiting was associated with this. Because of the ileosigmoid anastomosis the patient normally has diarrhea but all bowel function also stopped with this. She denies any pain this morning and states th at she feels much better. She denies hematemesis melena or hematochezia. She denies unexpected or unwarranted weight loss. She is not on any steroids or remittive therapy for her Crohn's disease. She states that she has not had any exacerbations since that resection. History - Past Medical History Cardiovascular: reports: None Respiratory: reports: None Endocrine/Autoimmune: reports: None GI: reports: Colon polyps, Chronic diarrhea, Crohn's disease : reports: Kidney stones HEENT: reports: Dental implants Psych: reports: None Musculoskeletal: reports: Osteoarthritis, Gout Derm: reports: Eczema MRSA Hx?: No - Past Surgical History General: reports: Bowel surgery (partial colectomy), Colonoscopy HEENT: reports: Tonsil/Adenoidectomy Derm: reports: Skin cancer surgery - Family & Social History Family History: Mother: , CVA/TIA Living arrangement: At home Living Situation: With spouse/s.o. Social History Notes: Denies tobacco or illicit drugs use. Usually drinks 1 glass of wine with dinner. - POLST Patient has POLST: No POLST Status: Full Code Meds/Allgy - Home Medications Home Medications: Ambulatory Orders Medication Instructions Recorded Confirmed Cholecalciferol (Vitamin D3) 2,000 unit PO DAILY 06/08/14 03/04/19 [Vitamin D] D-Mannose [Mannxtra] 1 tab PO UD 03/04/19 03/04/19 Multivitamin,Therapeutic [Thera] 1 each PO DAILY 03/04/19 03/04/19 - Allergies Allergies/Adverse Reactions: Allergies Allergy/AdvReac Type Severity Reaction Status Date / Time No Known Drug Allergies Allergy Verified 06/08/14 09:28 Review of Systems - Constitutional Constitutional: denies: Fatigue, Fever, Chills - Eyes Eyes: denies: Pain - Ears, Nose & Throat Ears, Nose & Throat: denies: Ear pain - Cardiovascular Cariovascular: denies: Irregular heart rate, Chest pain - Respiratory Respiratory: denies: Cough, Sputum production - Gastrointestinal Gastrointestinal: reports: Abdominal pain, Diarrhea, Nausea, Vomiting. denies: Black stools, Bloody stools, Arnaldo blood emesis - Musculoskeletal Musculoskeletal: denies: Muscle pain, Back pain - Integumentary Integumentary: denies: Rash - Neurological Neurological: denies: General weakness, Focal weakness Exam - Vital Signs Reviewed Vital Signs: Yes Vital Signs: Vital Signs x48h Temp Pulse Resp BP Pulse Ox 03/04/19 15:36 37.2 C 82 18 133/57 H 96 03/04/19 11:51 37.4 C 87 18 138/60 H 96 - Physical Exam General Appearance: positive: No acute distress Eyes Bilateral: positive: No lid inflammation, Conjunctivae nml, No scleral icterus ENT: positive: No signs of dehydration Neck: positive: Trachea midline Abdomen: positive: No distention, Abnml bowel sounds (Decreased). negative: Tenderness (No peritoneal findings.), Guarding, Rebound, Hepatomegaly, Splenomegaly Skin: positive: Color nml Extremities: positive: Non-tender, Nml appearance Neurologic/Psychiatric: positive: Oriented x3, Motor nml, Sensation nml, Mood/affect nml Conclusion/Plan - Diagnosis Diagnosis: Adhesive small bowel obstruction - Plan Plan: The provocative CT scan with oral contrast given through the NG failed to open this obstruction. The repeat CT scan shows some increased fluid around the liver. As such, the plan is for exploratory laparotomy with adhesio lysis. The indications, procedure, alternatives, possible complications including but not limited to infection, bleeding, and were fully explained to the patient all questions were answered. Verbal and written consent was obtained. The patient preparation for this procedure will have teds and Venodyne's placed for prophylax against deep venous thrombosis. Preoperative antibiotics to be given for prophylax against surgical infection. The patient has been maintained n.p.o. with an NG in place. I am asked the patient to let us know if there is any way we can make her stay at [facility] more comfortable to please let us know when she stated that she would. At the time of the patient's admission, I certify that it was my opinion that the patient would be able to go home in 96 hours or I would make a good zacarias effort to transfer the patient. Dragon disclaimer: This document was created in part using voice recognition technology. Because of the inherent limitations of the system ([employer]'s [employer] Dict[employer] user manual states that the licensee understands that speech recognition is a statistical process and that recognition errors are inherent in the process), occasional same sounding word substitutions and grammatical errors do occur and persist despite proofreading. Please read this document for context. - Lab Results Lab results reviewed: Yes Fish Bones: 03/04/19 04:35 03/04/19 04:35 - Diagnostic Imaging Results Diagnostic Imaging Results: positive: Final report reviewed, Read independently
[2019-03-04] MEDS ORDERED: BUPIVACAINE 0.5% PF 10 ML VIAL ONE (16:56)
[2019-03-04] MEDS ORDERED: LACTATED RINGERS 1,000 ML IV ONE ×2 (17:04→18:49)
[2019-03-04] MEDS ORDERED: ROPIVACAINE 0.2% PF 20 ML AMPULE ONE (18:03)
[2019-03-04] MEDS ORDERED: BENZOCAINE/TETRACAINE/BUTAMBEN 20 GM MM PRN (18:17)
[2019-03-04] MEDS ORDERED: PHENOL THROAT SPRAY 177 ML MM PRN (18:17)
--- NOTE | 2019-03-04 18:27 | OPERATIVE REPORT ---
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 - Other Other Information/Narrative: OPERATIVE DESCRIPTION/REPORT: After verbal and written informed consent was obtained detailing the risks of infection, bleeding requiring transfusion with its risks, nerve injury, and , and after I met with the patient confirming the surgery and the site of the surgery, the patient was brought to the operative suite and placed supine on the operating table. Great care was taken to avoid pressure points to prevent pressure necrosis or nerve injury. Monitoring devices were applied along with TEDs and pneumatic compressive stockings (to prevent DVT). The patient received preoperative antibiotics for surgical prophylaxis. Varun Egan MD sedated and anesthetized the patient for the entire procedure. The patient was prepped and draped in the usual sterile manner. With the patient draped my initials were clearly visible. A "time in" then confirmed that the patient was identified with 3 identifiers (name, date and medical record number), the history and physical was in the chart, the signed consent confirming the procedure was in the chart, the patient was in the correct position, the aforementioned prophylactic measures were in place or given, we had the correct personnel and equipment to complete the procedure and that anesthesia, surgery and nursing were given an opportunity to express any concerns. With the agreement of everyone in the room, we proceeded with the operation. A vertical midline incision was made tracing the inferior part of the previous incision and dissection was carried down to the linea alba using scalpel and Bovie electrocautery. The linea alba was incised using Bovie electrocautery and the peritoneum was grasped between 2 pickups and incised using a scalpel getting entry into the abdomen without incident. There was copious amounts of serous fluid that drained from the abdomen. I estimate the fluid to be approximately 1 L. With the fluid removed from the abdomen I then delivered the small bowel out of the abdomen and onto the operative field. The small bowel was run from the ligament of Treitz down to the terminal ileum. Notably the terminal ileum ended in the sigmoid colon. Just distal to a very clear Meckel's diverticulum there was an adhesive band across the distal ileum obstructing it. Please note that the Meckel's diverticulum was in no way associated with this obstruction. This adhesive band was coming from the right lateral abdominal wall and was rather broad based attaching to the ileum distal to his Zion's diverticulum. Beyond this adhesion the ileum then docked underneath this adhesion causing the obstruction. This adhesive band was incised using Bovie electrocautery and unfortunately encountering a blood vessel that needed to be controlled via suture ligature with a 3-0 Vicryl suture ligature. Additional adhesions were then taken using a combination of Bovie electrocautery as well as LigaSure. There is actually surprising amount of bands that could have caused to this adhesion. Again, as I encountered them they were lysed. Once I assured myself that there was no impediment of flow from the ligament of Treitz to the anastomosis the small bowel was returned to the abdomen with some difficulty due to the distention of the small bowel. The abdomen was then copiously irrigated using warm sterile saline. The fascia was then closed using oh looped PDS starting inferiorly and superiorly and running to meet just above the midpoint. This knot was then dunked. Meticulous hemostasis was obtained using Bovie electrocautery in the subcutaneous tissues and the skin was approximated using a skin stapler. At this point a time out was performed that confirmed that all the counts were correct, the procedure that was performed, the blood loss, the IV fluids administered, and the patients condition. Having tolerated the procedure well, the patient was subsequently extubated and taken to recovery room in good and stable condition. [facility] disclaimer: This document was created in part using voice recognition technology. Because of the inherent limitations of the system ([employer]'s [facility] Dictate user manual states that the licensee understands that speech recognition is a statistical process and that recognition errors are inherent in the process), occasional s dom sounding word substitutions and grammatical errors do occur and persist despite proofreading. Please read this document for context.
[2019-03-04] MEDS ORDERED: HYDROmorphone 0.5 MG/0.5 ML SYRINGE ONE (18:57)
[2019-03-04] MEDS: ACETAMINOPHEN 1,000 MG/100 ML 100 ML IV SCH (20:39)
[2019-03-04] MEDS ORDERED: SODIUM CHLORIDE 0.9% 500 ML IV ONE (22:42)
[2019-03-05] MEDS: ACETAMINOPHEN 1,000 MG/100 ML 100 ML IV SCH ×4 (01:52→19:48)
[2019-03-05] MEDS: D5.45NS W/20 MEQ KCL 1,000 ML IV SCH ×2 (03:25→14:24)
[2019-03-05 05:38] LABS: BASOPHILS % (AUTO) 0.4 %; LYMPHOCYTES # (AUTO) 0.7 10^3/uL (1.5-3.5); LYMPHOCYTES % (AUTO) 10.4 %; MEAN CORPUSCULAR HEMOGLOBIN 29.9 pg (27.0-31.0); MEAN CORPUSCULAR HGB CONC 31.3 g/dL (32.0-36.0); MEAN CORPUSCULAR VOLUME 95.3 fL (81.0-99.0); MEAN PLATELET VOLUME 10.8 fL (7.9-10.8); MONOCYTES # (AUTO) 0.7 10^3/uL (0.0-1.0); MONOCYTES % (AUTO) 9.5 %; NEUTROPHILS # (AUTO) 5.4 10^3/uL (1.5-6.6); NEUTROPHILS % (AUTO) 79.4 %; PLT - PLATELET COUNT 210 10^3/uL (130-450); RED BLOOD COUNT 4.02 10^6/uL (4.20-5.40); RED CELL DISTRIBUTION WIDTH 12.8 % (12.0-15.0); WHITE BLOOD COUNT 6.8 x10^3/uL (4.8-10.8)
[2019-03-05 05:53] LABS: ALBUMIN/GLOBULIN RATIO 1.4 (1.0-2.2); BILIRUBIN,TOTAL 0.7 mg/dL (0.2-1.0); CREATININE 0.5 mg/dL (0.4-1.0); TOTAL PROTEIN 5.1 g/dL (6.7-8.2)
[2019-03-05] MEDS: PANTOPRAZOLE 40 MG VIAL IVP SCH (06:20)
[2019-03-05] MEDS: SODIUM CHLORIDE FLUSH 0.9% 10 ML SYRINGE IVP PRN (06:20)
[2019-03-05] MEDS: POLYETHYLENE GLYCOL 3350 17 GM PACKET PO SCH (08:12)
[2019-03-05] MEDS: SODIUM CHLORIDE FLUSH 0.9% 10 ML SYRINGE IVP SCH ×2 (08:13→17:12)
--- NOTE | 2019-03-05 08:31 | PROVIDER PROGRESS NOTE ---
Subjective - General Admit Date: 03/03/19 Procedure Date: 03/04/19 Post Op Days: 1 Procedure Performed: Exploratory laparotomy and adhesiolysis - Review of Systems Wound/Incisions: positive: Dressing dry and intact General: positive: No symptoms HEENT: positive: No symptoms Pulmonary: positive: No symptoms Cardiovascular: positive: No symptoms Gastrointestinal: positive: Abdominal pain (Incisional.). negative: Flatus Genitourinary: positive: No symptoms Musculoskeletal: positive: No symptoms Skin: positive: No symptoms Psychiatric: positive: No symptoms Objective - Patient Data Reviewed Vital Signs: Yes Vital Signs: Vital Signs x48h Temp Pulse Resp BP BP Pulse Ox 03/05/19 07:23 37.2 C 84 14 125/60 96 03/05/19 05:30 36.6 C 79 16 112/54 L 97 Weight: Weight 03/03/19 03/04/19 03/05/19 23:59 23:59 23:59 Weight (kg) 52 kg Intake & Output: Intake and Output Totals x24h 03/03/19 03/04/19 03/05/19 23:59 23:59 23:59 Intake Total 1999 3260.667 828.333 Output Total 1200 525 Balance 1999 2060.667 303.333 - Lab Results Lab Results: 03/05/19 05:20 03/05/19 05:20 Other Lab Results: Lab Results x24hrs 03/05/19 03/05/19 03/05/19 Range/Units 05:20 05:20 05:20 WBC 6.8 (4.8-10.8) x10^3/uL RBC 4.02 L (4.20-5.40) 10^6/uL Hgb 12.0 (12.0-16.0) g/dL Hct 38.3 (37.0-47.0) % MCV 95.3 (81.0-99.0) fL MCH 29.9 (27.0-31.0) pg MCHC 31.3 L (32.0-36.0) g/dL RDW 12.8 (12.0-15.0) % Plt Count 210 (130-450) 10^3/uL MPV 10.8 (7.9-10.8) fL Neut # (Auto) 5.4 (1.5-6.6) 10^3/uL Lymph # (Auto) 0.7 L (1.5-3.5) 10^3/uL [place] # (Auto) 0.7 (0.0-1.0) 10^3/uL Eos # (Auto) 0.0 (0.0-0.7) 10^3/uL Baso # (Auto) 0.0 (0.0-0.1) 10^3/uL Absolute Nucleated RBC 0.00 x10^3/uL Nucleated RBC % 0.0 /100WBC Sodium 140 (135-145) mmol/L Potassium 4.3 (3.5-5.0) mmol/L Chloride 108 (101-111) mmol/L Carbon Dioxide 27 (21-32) mmol/L Anion Gap 5.0 L (6-13) BUN 16 (6-20) mg/dL Creatinine 0.5 (0.4-1.0) mg/dL Estimated GFR (MDRD) 121 (>89) Glucose 157 H (70-100) mg/dL Calcium 8.0 L (8.5-10.3) mg/dL Magnesium 1.8 (1.7-2.8) mg/dL Total Bilirubin 0.7 (0.2-1.0) mg/dL AST 23 (10-42) IU/L ALT 12 (10-60) IU/L Alkaline Phosphatase 34 L (42-121) IU/L Total Protein 5.1 L (6.7-8.2) g/dL Albumin 3.0 L (3.2-5.5) g/dL Globulin 2.1 (2.1-4.2) g/dL Albumin/Globulin Ratio 1.4 (1.0-2.2) - Current Medications Current Medications: Current Medications Generic Name Dose Route Start Last Admin Trade Name Freq PRN Reason Stop Dose Admin Potassium Chloride/Dextrose/Sod Cl 1,000 mls @ 100 mls/hr 03/04/19 14:00 03/05/19 03:25 D5.45ns W/20 Meq Kcl IV 100 mls/hr .Q10H KRISTA Administration Acetaminophen 100 mls @ 400 mls/hr 03/04/19 20:00 03/05/19 02:16 Ofirmev IV Infused Q6H KRISTA Infusion Ondansetron HCl 4 mg 03/03/19 21:44 03/04/19 10:21 Zofran Inj IVP 4 mg Q6HR PRN Administration Nausea / Vomiting Pantoprazole Sodium 40 mg 03/04/19 07:00 03/05/19 06:20 Protonix IVP 40 mg QDAC KRISTA Administration Polyethylene Glycol 17 gm 03/04/19 09:00 03/05/19 08:12 Miralax PO Not Given DAILY KRISTA Sodium Chloride 10 ml 03/05/19 01:00 03/05/19 08:13 Normal Saline Flush 0.9% IVP Not Given 0100,0900,1700 KRISTA Sodium Chloride 10 ml 03/04/19 18:17 03/05/19 06:20 Normal Saline Flush 0.9% IVP 10 ml PRN PRN Administration NEEDED PER PROVIDER ORDERS - Physical Exam Wound/Incisions: positive: Dressing dry and intact General Appearance: positive: No acute distress Eyes Bilateral: positive: No lid inflammation, Conjunctivae nml, No scleral icterus ENT: positive: Dry mucous membranes, Other (NG in place.) Neck: positive: Trachea midline Respiratory: positive: Chest non-tender, No respiratory distress, Breath sounds nml Cardiovascular: positive: Regular rate & rhythm Abdomen: positive: Tenderness (Incisional.), Abnml bowel sounds (Decreased.), Other (Abdomen is "tight.") Skin: positive: Color nml Extremities: positive: Non-tender, Nml appearance Neurologic/Psychiatric: positive: Oriented x3, Motor nml, Sensation nml, Mood/affect nml ABX Reporting Has patient been on IV antibiotics over the past 48 hours?: Yes Impression/Plan - Problem List Problem List: D1 s/p exploratory laparotomy with adhesiolysis - coincidental finding of a Meckel's diverticulum 1) FEN Continue IVF and start sips and chips for comfort. 2) Bowel No flatus yet. Keep NG in and switch to LCS. 3) DVT Teds and venadynes in place. 4) Activity Ambulation today. 5) Meckel's Mentioned only because it is an interesting operative finding.
[2019-03-05] MEDS: ENOXAPARIN 40 MG/0.4 ML SYRINGE SUBQ SCH (08:32)
--- NOTE | 2019-03-05 14:04 | PROVIDER PROGRESS NOTE ---
Subjective - Prog Note Date Prog Note Date: 03/05/19 - Subjective Pt reports feeling: Improved Subjective: pt report her abdominal pain is better. surgery site still has some pain when she try to move. nurse report pt walked at the [place] of medical floor. pt denies nausea or vomiting. Current Medications - Current Medications Current Medications: Active Medications Benzocaine/Butamben/Tetracaine HCl (Cetacaine [place]) 1 sprays MM DAILY PRN PRN Reason: Throat Pain Enoxaparin Sodium (Lovenox) 40 mg SUBQ DAILY [facility] Last Admin: 03/05/19 08:32 Dose: 40 mg Hydromorphone HCl (Dilaudid Inj Syringe) 0.5 mg IVP Q1H PRN PRN Reason: PAIN Potassium Chloride/Dextrose/Sod Cl (D5.45ns W/20 Meq Kcl) 1,000 mls @ 100 mls/hr IV .Q10H [facility] Last Admin: 03/05/19 03:25 Dose: 100 mls/hr Acetaminophen (Ofirmev) 100 mls @ 400 mls/hr IV Q6H [facility] Last Infusion: 03/05/19 09:15 Dose: Infused Ondansetron HCl (Zofran Inj) 4 mg IVP Q6HR PRN PRN Reason: Nausea / Vomiting Last Admin: 03/04/19 10:21 Dose: 4 mg Pantoprazole Sodium (Protonix) 40 mg IVP QDAC [facility] Last Admin: 03/05/19 06:20 Dose: 40 mg Phenol/Menthol (Chloraseptic) 1 sprays MM Q2HR PRN PRN Reason: Throat Pain Polyethylene Glycol (Miralax) 17 gm PO DAILY [facility] Last Admin: 03/05/19 08:12 Dose: Not Given Sodium Chloride (Normal Saline Flush 0.9%) 10 ml IVP 0100,0900,1700 [facility] Last Admin: 03/05/19 08:13 Dose: Not Given Sodium Chloride (Normal Saline Flush 0.9%) 10 ml IVP PRN PRN PRN Reason: NEEDED PER PROVIDER ORDERS Last Admin: 03/05/19 06:20 Dose: 10 ml Cholecalciferol (Vitamin D3) [Vitamin D] 2,000 unit PO DAILY 06/08/14 D-Mannose [Mannxtra] 1 tab PO UD 03/04/19 Multivitamin,Therapeutic [Thera] 1 each PO DAILY 10/01/19 Objective - Vital Signs/Intake & Output Reviewed Vital Signs: Yes Vital Signs: Vital Signs x48h Temp Pulse Resp BP Pulse Ox 03/05/19 12:38 37.2 C 86 14 118/62 97 03/05/19 07:23 37.2 C 84 14 125/60 96 Intake & Output: Intake & Output 03/02/19 03/03/19 03/04/19 03/05/19 23:59 23:59 23:59 23:59 Intake Total 1999 3260.667 978.333 Output Total 1200 675 Balance 1999 2060.667 303.333 - Objective General Appearance: positive: No acute distress, Alert. negative: Lethargic Eyes Bilateral: positive: Normal inspection, PERRL, No lid inflammation, Conjunctivae nml ENT: positive: ENT inspection nml, Pharynx nml, No signs of dehydration. negative: Purulent nasal drainage, Pharyngeal erythema, Oral lesions Neck: positive: Nml inspection, Thyroid nml, No JVD, Trachea midline. negative: Thyromegaly, Lymphadenopathy (R), Lymphadenopathy (L), Stiff neck, Swelling/bruising, Tracheal deviation Respiratory: positive: Chest non-tender, No respiratory distress, Breath sounds nml. negative: Wheezes, Rales, Rhonchi Cardiovascular: positive: Regular rate & rhythm, No murmur, No gallop. negative: Irregularly irregular, Extrasystoles, Tachycardia, Bradycardia, JVD present, Systolic murmur, Diastolic murmur Peripheral Pulses: 2+ Radial (R), 2+ Radial (L), 2+ Dorsalis pedis (R), 2+ Dorsalis pedis (L) Abdomen: positive: Non-tender, No organomegaly, Nml bowel sounds, No distention. negative: Tenderness, Guarding, Rebound, Abnml bowel sounds Back: positive: Nml inspection. negative: CVA tenderness (R), CVA tenderness (L) Skin: positive: Color nml, No rash, Warm, Dry. negative: Cyanosis, Diaphoresis, Pallor Extremities: positive: Non-tender, Full ROM, Nml appearance. negative: Calf tenderness, Joint swelling, Penny's sign/cords Neurologic/Psychiatric: positive: Oriented x3, Motor nml, Sensation nml, Mood/affect nml. negative: Weakness, Sensory loss, Facial droop, Slurred/abnml speech, Depressed mood/affect - Lab Results Fish Bones: 03/05/19 05:20 03/05/19 05:20 Other Labs: Lab Results x24hrs 03/05/19 03/05/19 03/05/19 Range/Units 11:57 08:47 05:20 WBC (4.8-10.8) x10^3/uL RBC (4.20-5.40) 10^6/uL Hgb (12.0-16.0) g/dL Hct (37.0-47.0) % MCV (81.0-99.0) fL MCH (27.0-31.0) pg MCHC (32.0-36.0) g/dL RDW (12.0-15.0) % Plt Count (130-450) 10^3/uL MPV (7.9-10.8) fL Neut # (Auto) (1.5-6.6) 10^3/uL Lymph # (Auto) (1.5-3.5) 10^3/uL [place] # (Auto) (0.0-1.0) 10^3/uL Eos # (Auto) (0.0-0.7) 10^3/uL Baso # (Auto) (0.0-0.1) 10^3/uL Absolute Nucleated RBC x10^3/uL Nucleated RBC % /100WBC Sodium (135-145) mmol/L Potassium (3.5-5.0) mmol/L Chloride (101-111) mmol/L Carbon Dioxide (21-32) mmol/L Anion Gap (6-13) BUN (6-20) mg/dL Creatinine (0.4-1.0) mg/dL Estimated GFR (MDRD) (>89) Glucose (70-100) mg/dL POC Whole Bld Glucose 122 H 129 H (70 - 100) mg/dL Calcium (8.5-10.3) mg/dL Magnesium 1.8 (1.7-2.8) mg/dL Total Bilirubin (0.2-1.0) mg/dL AST (10-42) IU/L ALT (10-60) IU/L Alkaline Phosphatase (42-121) IU/L Total Protein (6.7-8.2) g/dL Albumin (3.2-5.5) g/dL Globulin (2.1-4.2) g/dL Albumin/Globulin Ratio (1.0-2.2) 03/05/19 03/05/19 Range/Units 05:20 05:20 WBC 6.8 (4.8-10.8) x10^3/uL RBC 4.02 L (4.20-5.40) 10^6/uL Hgb 12.0 (12.0-16.0) g/dL Hct 38.3 (37.0-47.0) % MCV 95.3 (81.0-99.0) fL MCH 29.9 (27.0-31.0) pg MCHC 31.3 L (32.0-36.0) g/dL RDW 12.8 (12.0-15.0) % Plt Count 210 (130-450) 10^3/uL MPV 10.8 (7.9-10.8) fL Neut # (Auto) 5.4 (1.5-6.6) 10^3/uL Lymph # (Auto) 0.7 L (1.5-3.5) 10^3/uL [place] # (Auto) 0.7 (0.0-1.0) 10^3/uL Eos # (Auto) 0.0 (0.0-0.7) 10^3/uL Baso # (Auto) 0.0 (0.0-0.1) 10^3/uL Absolute Nucleated RBC 0.00 x10^3/uL Nucleated RBC % 0.0 /100WBC Sodium 140 (135-145) mmol/L Potassium 4.3 (3.5-5.0) mmol/L Chloride 108 (101-111) mmol/L Carbon Dioxide 27 (21-32) mmol/L Anion Gap 5.0 L (6-13) BUN 16 (6-20) mg/dL Creatinine 0.5 (0.4-1.0) mg/dL Estimated GFR (MDRD) 121 (>89) Glucose 157 H (70-100) mg/dL POC Whole Bld Glucose (70 - 100) mg/dL Calcium 8.0 L (8.5-10.3) mg/dL Magnesium (1.7-2.8) mg/dL Total Bilirubin 0.7 (0.2-1.0) mg/dL AST 23 (10-42) IU/L ALT 12 (10-60) IU/L Alkaline Phosphatase 34 L (42-121) IU/L Total Protein 5.1 L (6.7-8.2) g/dL Albumin 3.0 L (3.2-5.5) g/dL Globulin 2.1 (2.1-4.2) g/dL Albumin/Globulin Ratio 1.4 (1.0-2.2) ABX Reporting Has patient been on IV antibiotics over the past 48 hours?: No Assessment/Plan - Problem List (1) Small bowel obstruction due to adhesions Impression: 03/05 s/p surgery of Exploratory laparotomy and adhesiolysis day one followup surgeon's recommendation pain control encourage ambulation 03/04 although clinically pt had improved, reduced abdominal pain, no N/V now. but new CT of abdomen today morning reveals [facility] surgeon knew the updated CT result continue NPO encourage ambulate IVF of D5 pain control continue NG tube now (2) Crohn disease Conclusion/Plan: stable. pt is not on any medication. pt report she is s/p partial colectomy in 1990.
[2019-03-05] MEDS: ONDANSETRON 4 MG/2 ML VIAL IVP PRN (22:01)
[2019-03-06] MEDS: D5.45NS W/20 MEQ KCL 1,000 ML IV SCH ×2 (00:02→21:37)
[2019-03-06] MEDS: SODIUM CHLORIDE FLUSH 0.9% 10 ML SYRINGE IVP SCH ×4 (00:05→06:20)
[2019-03-06] MEDS: ACETAMINOPHEN 1,000 MG/100 ML 100 ML IV SCH ×4 (03:04→21:36)
[2019-03-06] MEDS: ONDANSETRON 4 MG/2 ML VIAL IVP PRN ×2 (03:38→11:10)
[2019-03-06 05:29] LABS: BASOPHILS % (AUTO) 0.8 %; EOSINOPHILS % (AUTO) 0.8 %; LYMPHOCYTES # (AUTO) 0.5 10^3/uL (1.5-3.5); LYMPHOCYTES % (AUTO) 9.1 %; MEAN CORPUSCULAR HEMOGLOBIN 29.9 pg (27.0-31.0); MEAN CORPUSCULAR HGB CONC 31.6 g/dL (32.0-36.0); MEAN CORPUSCULAR VOLUME 94.5 fL (81.0-99.0); MEAN PLATELET VOLUME 10.9 fL (7.9-10.8); MONOCYTES # (AUTO) 0.5 10^3/uL (0.0-1.0); MONOCYTES % (AUTO) 9.5 %; NEUTROPHILS # (AUTO) 3.9 10^3/uL (1.5-6.6); NEUTROPHILS % (AUTO) 79.6 %; PLT - PLATELET COUNT 199 10^3/uL (130-450); RED BLOOD COUNT 4.02 10^6/uL (4.20-5.40); RED CELL DISTRIBUTION WIDTH 12.6 % (12.0-15.0); WHITE BLOOD COUNT 4.9 x10^3/uL (4.8-10.8)
[2019-03-06 05:40] LABS: CREATININE 0.4 mg/dL (0.4-1.0)
[2019-03-06] MEDS: SODIUM CHLORIDE FLUSH 0.9% 10 ML SYRINGE IVP PRN ×2 (06:07→17:25)
[2019-03-06] MEDS: PANTOPRAZOLE 40 MG VIAL IVP SCH (06:07)
[2019-03-06] MEDS ORDERED: D5.45NS W/20 MEQ KCL 1,000 ML IV SCH (07:45)
[2019-03-06] MEDS: POLYETHYLENE GLYCOL 3350 17 GM PACKET PO SCH (08:12)
[2019-03-06] MEDS: ENOXAPARIN 40 MG/0.4 ML SYRINGE SUBQ SCH (09:03)
[2019-03-06] MEDS ORDERED: CALCIUM CARBONATE CHEW 500 MG TABLET PO SCH (11:00)
[2019-03-06] MEDS ORDERED: PROCHLORPERAZINE 10 MG/2 ML VIAL IVP PRN (16:07)
[2019-03-06] MEDS ORDERED: PROMETHAZINE INJ 25 MG in SODIUM CHLORIDE 0.9% 50 ML IV PRN (16:07)
[2019-03-06] MEDS ORDERED: ZOLPIDEM 5 MG TABLET PO PRN (16:08)
--- NOTE | 2019-03-06 16:21 | PROVIDER PROGRESS NOTE ---
Subjective - Prog Note Date Prog Note Date: 03/06/19 - Subjective Pt reports feeling: Improved Subjective: pt report her abdominal pain is better and she had bowel movement today but she report she has lots of nausea. she report she had poor sleep on last night. she denies fever, chill, cough, chest pain, shortness of breath. Current Medications - Current Medications Current Medications: Active Medications Benzocaine/Butamben/Tetracaine HCl (Cetacaine [place]) 1 sprays MM DAILY PRN PRN Reason: Throat Pain Enoxaparin Sodium (Lovenox) 40 mg SUBQ DAILY [facility] Last Admin: 03/06/19 09:03 Dose: 40 mg Hydromorphone HCl (Dilaudid Inj Syringe) 0.5 mg IVP Q1H PRN PRN Reason: PAIN Last Admin: 03/06/19 06:20 Dose: 0.5 mg Acetaminophen (Ofirmev) 100 mls @ 400 mls/hr IV Q6H [facility] Last Infusion: 03/06/19 14:27 Dose: Infused Potassium Chloride/Dextrose/Sod Cl (D5.45ns W/20 Meq Kcl) 1,000 mls @ 75 mls/hr IV .[id number] [facility] Last Infusion: 03/06/19 11:37 Dose: 75 mls/hr Promethazine HCl 25 mg/ Sodium (Chloride) 51 mls @ 100 mls/hr IV Q6H PRN PRN Reason: Nausea / Vomiting Ondansetron HCl (Zofran Inj) 4 mg IVP Q6HR PRN PRN Reason: Nausea / Vomiting Last Admin: 03/06/19 11:10 Dose: 4 mg Pantoprazole Sodium (Protonix) 40 mg IVP QDAC [facility] Phenol/Menthol (Chloraseptic) 1 sprays MM Q2HR PRN PRN Reason: Throat Pain Polyethylene Glycol (Miralax) 17 gm PO DAILY [facility] Last Admin: 03/06/19 08:12 Dose: Not Given Prochlorperazine Edisylate (Compazine Inj) 10 mg IVP Q4HR PRN PRN Reason: Nausea / Vomiting Sodium Chloride (Normal Saline Flush 0.9%) 10 ml IVP 0100,0900,1700 [facility] Last Admin: 03/06/19 06:20 Dose: 10 ml Sodium Chloride (Normal Saline Flush 0.9%) 10 ml IVP PRN PRN PRN Reason: NEEDED PER PROVIDER ORDERS Last Admin: 03/06/19 06:07 Dose: 10 ml Zolpidem Tartrate (Ambien) 5 mg PO QPM PRN PRN Reason: Insomnia Cholecalciferol (Vitamin D3) [Vitamin D] 2,000 unit PO DAILY 06/08/14 D-Mannose [Mannxtra] 1 tab PO UD 03/04/19 Multivitamin,Therapeutic [Thera] 1 each PO DAILY 03/04/19 Objective - Vital Signs/Intake & Output Reviewed Vital Signs: Yes Vital Signs: Vital Signs x48h Temp Pulse Resp BP Pulse Ox 03/06/19 15:42 37.3 C 108 H 24 131/67 H 92 03/06/19 12:15 36.9 C 98 18 156/64 H 96 Intake & Output: Intake & Output 03/03/19 03/04/19 03/05/19 03/06/19 23:59 23:59 23:59 23:59 Intake Total 1999 3260.667 2448.333 2452.493 Output Total 1200 675 350 Balance 1999 2060.667 9883.326 3422.493 - Objective General Appearance: positive: No acute distress, Alert. negative: Lethargic Eyes Bilateral: positive: Normal inspection, PERRL, No lid inflammation, Conjunctivae nml ENT: positive: ENT inspection nml, Pharynx nml, No signs of dehydration. negative: Purulent nasal drainage, Pharyngeal erythema, Oral lesions Neck: positive: Nml inspection, Thyroid nml, No JVD, Trachea midline. negative: Thyromegaly, Lymphadenopathy (R), Lymphadenopathy (L), Stiff neck, Swelling/bruising, Tracheal deviation Respiratory: positive: Chest non-tender, No respiratory distress, Breath sounds nml. negative: Wheezes, Rales, Rhonchi Cardiovascular: positive: Regular rate & rhythm, No murmur, No gallop. negati ve: Irregularly irregular, Extrasystoles, Tachycardia, Bradycardia, JVD present, Systolic murmur, Diastolic murmur Peripheral Pulses: 2+ Radial (R), 2+ Radial (L), 2+ Dorsalis pedis (R), 2+ Dorsalis pedis (L) Abdomen: positive: Non-tender, No organomegaly, Nml bowel sounds, No distention. negative: Tenderness, Guarding, Rebound Back: positive: Nml inspection. negative: CVA tenderness (R), CVA tenderness (L) Skin: positive: Color nml, No rash, Warm, Dry. negative: Cyanosis, Diaphoresis, Pallor Extremities: positive: Non-tender, Full ROM, Nml appearance. negative: Calf tenderness, Joint swelling, Penny's sign/cords Neurologic/Psychiatric: positive: Oriented x3, Motor nml, Sensation nml, Mood/affect nml. negative: Weakness, Sensory loss, Facial droop, Slurred/abnml speech, Depressed mood/affect - Lab Results Fish Bones: 03/06/19 05:05 03/06/19 05:05 Other Labs: Lab Results x24hrs 03/06/19 03/06/19 Range/Units 05:05 05:05 WBC 4.9 (4.8-10.8) x10^3/uL RBC 4.02 L (4.20-5.40) 10^6/uL Hgb 12.0 (12.0-16.0) g/dL Hct 38.0 (37.0-47.0) % MCV 94.5 (81.0-99.0) fL MCH 29.9 (27.0-31.0) pg MCHC 31.6 L (32.0-36.0) g/dL RDW 12.6 (12.0-15.0) % Plt Count 199 (130-450) 10^3/uL MPV 10.9 H (7.9-10.8) fL Neut # (Auto) 3.9 (1.5-6.6) 10^3/uL Lymph # (Auto) 0.5 L (1.5-3.5) 10^3/uL [place] # (Auto) 0.5 (0.0-1.0) 10^3/uL Eos # (Auto) 0.0 (0.0-0.7) 10^3/uL Baso # (Auto) 0.0 (0.0-0.1) 10^3/uL Absolute Nucleated RBC 0.00 x10^3/uL Nucleated RBC % 0.0 /100WBC Sodium 137 (135-145) mmol/L Potassium 3.9 (3.5-5.0) mmol/L Chloride 104 (101-111) mmol/L Carbon Dioxide 26 (21-32) mmol/L Anion Gap 7.0 (6-13) BUN 14 (6-20) mg/dL Creatinine 0.4 (0.4-1.0) mg/dL Estimated GFR (MDRD) 156 (>89) Glucose 147 H (70-100) mg/dL Calcium 8.0 L (8.5-10.3) mg/dL ABX Reporting Has patient been on IV antibiotics over the past 48 hours?: No Sepsis Event Note (H) - Evaluation Current Stage of Sepsis: Ruled out Assessment/Plan - Problem List (1) Small bowel obstruction due to adhesions Impression: 03/06 s/p surgery of Exploratory laparotomy and adhesiolysis day two. pt report she had bowel movement today but she report she feel lots of nausea without vomiting. unknown etiology of nausea. add phenergan and companzin PRN for nausea continue pain control and gently IVF add ambien PRN for her sleep 03/05 s/p surgery of Exploratory laparotomy and adhesiolysis day one followup surgeon's recommendation pain control encourage ambulation 03/04 although clinically pt had improved, reduced abdominal pain, no N/V now. but new CT of abdomen today morning reveals [facility] surgeon knew the updated CT result continue NPO encourage ambulate IVF of D5 pain control continue NG tube now (2) Crohn disease Conclusion/Plan: stable. pt is not on any medication. pt report she is s/p partial colectomy in 1990.
[2019-03-06 19:18] LABS: BASOPHILS % (AUTO) 0.6 %; HGB - HEMOGLOBIN 12.6 g/dL (12.0-16.0); LYMPHOCYTES % (AUTO) 5.8 %; MEAN CORPUSCULAR HEMOGLOBIN 31.2 pg (27.0-31.0); MEAN CORPUSCULAR HGB CONC 33.2 g/dL (32.0-36.0); MEAN CORPUSCULAR VOLUME 93.8 fL (81.0-99.0); MEAN PLATELET VOLUME 10.9 fL (7.9-10.8); MONOCYTES % (AUTO) 2.2 %; PLT - PLATELET COUNT 191 10^3/uL (130-450); RED BLOOD COUNT 4.04 10^6/uL (4.20-5.40); RED CELL DISTRIBUTION WIDTH 12.3 % (12.0-15.0)
[2019-03-06 19:32] LABS: ALBUMIN 2.9 g/dL (3.2-5.5); ALBUMIN/GLOBULIN RATIO 1.2 (1.0-2.2); BILIRUBIN,TOTAL 0.9 mg/dL (0.2-1.0); CALCIUM 8.2 mg/dL (8.5-10.3); CREATININE 0.5 mg/dL (0.4-1.0); TOTAL PROTEIN 5.4 g/dL (6.7-8.2)
[2019-03-06 19:34] LABS: ABNORMAL LYMPHS % (MANUAL) 0 %
[2019-03-06 20:15] LABS: BAND NEUTROPHILS % (MANUAL) 23 %; LYMPHOCYTES # (MANUAL) 0.3 10^3/uL (1.5-3.5); LYMPHOCYTES % (MANUAL) 5 %; METAMYELOCYTES % (MANUAL) 4 %; MONOCYTES # (MANUAL) 0.1 10^3/uL (0.0-1.0)
[2019-03-06 20:16] LABS: DIFFERENTIAL COMMENT MANUAL DIFFERENTIAL; PLATELET ESTIMATE, MANUAL NORMAL (130-450,000) (NORMAL); PLATELET MORPHOLOGY NORMAL APPEARANCE (NORMAL); RBC MORPHOLOGY (MULTIPLE) NORMAL APPEARANCE (NORMAL)
--- NOTE | 2019-03-06 21:20 | XRAY Report ---
Reason: tenderness, warm, s/p surgery Procedure Date: 03/06/2019 Accession Number: [id number] / [id number] Procedure: XR - Abdomen 2 View X-Ray CPT Code: 54523 FULL RESULT: EXAM: ABDOMEN RADIOGRAPHY EXAM DATE: 03/06/2019 08:34 PM. CLINICAL HISTORY: Tenderness, warm, s/p surgery. COMPARISON: None. TECHNIQUE: 2 views. FINDINGS: Lung Bases: Unremarkable. Bowel Gas Pattern: Multiple air-fluid levels seen in the abdomen, ileus versus obstruction. Free Air: None. Other: Skin dameon are seen in the midline. IMPRESSION: Multiple air-fluid levels in the abdomen. Ileus versus obstruction in postsurgical setting. [facility]
[2019-03-06] MEDS ORDERED: LACTATED RINGERS 500 ML IV ONE (21:34)
--- NOTE | 2019-03-06 21:57 | PROVIDER PROGRESS NOTE ---
Subjective - General Admit Date: 03/03/19 Procedure Date: 03/04/19 Post Op Days: 2 Procedure Performed: Exploratory laparotomy and adhesiolysis - Review of Systems Wound/Incisions: positive: Dressing dry and intact General: positive: No symptoms HEENT: positive: No symptoms Pulmonary: positive: No symptoms Cardiovascular: positive: No symptoms Gastrointestinal: positive: Nausea (Patient was initially having bowel movements and passing gas but this stopped today and she has had some increasing nausea and occasional vomiting.), Vomiting, Abdominal pain (Incisional.). negative: Flatus Genitourinary: positive: No symptoms Musculoskeletal: positive: No symptoms Skin: positive: No symptoms Psychiatric: positive: No symptoms Objective - Patient Data Reviewed Vital Signs: Yes Vital Signs: Vital Signs x48h Temp Pulse Resp BP Pulse Ox 03/06/19 20:30 94 03/06/19 20:07 37.3 C 120 H 22 146/74 H 91 L 03/06/19 18:17 37.3 C 03/06/19 18:00 126 H 03/06/19 15:42 37.3 C 108 H 24 131/67 H 92 Intake & Output: Intake and Output Totals x24h 03/04/19 03/05/19 03/06/19 23:59 23:59 23:59 Intake Total 3260.667 2448.333 2552.493 Output Total 1200 675 450 Balance 2060.667 4732.878 3747.493 - Lab Results Lab Results: 03/06/19 19:10 03/06/19 19:10 Other Lab Results: Lab Results x24hrs 03/06/19 03/06/19 03/06/19 Range/Units 19:10 19:10 19:10 WBC (4.8-10.8) x10^3/uL RBC (4.20-5.40) 10^6/uL Hgb (12.0-16.0) g/dL Hct (37.0-47.0) % MCV (81.0-99.0) fL MCH (27.0-31.0) pg MCHC (32.0-36.0) g/dL RDW (12.0-15.0) % Plt Count (130-450) 10^3/uL MPV (7.9-10.8) fL Neut # (Auto) (1.5-6.6) 10^3/uL Lymph # (Auto) (1.5-3.5) 10^3/uL [place] # (Auto) (0.0-1.0) 10^3/uL Eos # (Auto) (0.0-0.7) 10^3/uL Baso # (Auto) (0.0-0.1) 10^3/uL Absolute Nucleated RBC x10^3/uL Total Counted Band Neuts % (Manual) (0 - 10) % Reactive Lymphs % (Man) % Abnorm Lymph % (Manual) % Metamyelocytes % ( - 0) % Nucleated RBC % /100WBC Neutrophils # (Manual) (1.5-6.6) 10^3/uL Lymphocytes # (Manual) (1.5-3.5) 10^3/uL Monocytes # (Manual) (0.0-1.0) 10^3/uL Eosinophils # (Manual) (0-0.7) 10^3/uL Basophils # (Manual) (0-0.1) 10^3/uL Differential Comment Manual Slide Review Platelet Estimate (NORMAL) Platelet Morphology (NORMAL) RBC Morph Micro Appear (NORMAL) Sodium 136 (135-145) mmol/L Potassium 3.9 (3.5-5.0) mmol/L Chloride 101 (101-111) mmol/L Carbon Dioxide 25 (21-32) mmol/L Anion Gap 10.0 (6-13) BUN 12 (6-20) mg/dL Creatinine 0.5 (0.4-1.0) mg/dL Estimated GFR (MDRD) 121 (>89) Glucose 140 H (70-100) mg/dL Lactic Acid 1.7 (0.5-2.2) mmol/L Calcium 8.2 L (8.5-10.3) mg/dL Total Bilirubin 0.9 (0.2-1.0) mg/dL AST 35 (10-42) IU/L ALT 18 (10-60) IU/L Alkaline Phosphatase 36 L (42-121) IU/L Troponin I High Sens 5.2 (2.3-14.8) pg/mL Total Protein 5.4 L (6.7-8.2) g/dL Albumin 2.9 L (3.2-5.5) g/dL Globulin 2.5 (2.1-4.2) g/dL Albumin/Globulin Ratio 1.2 (1.0-2.2) 03/06/19 03/06/19 03/06/19 Range/Units 19:10 05:05 05:05 WBC 5.0 4.9 (4.8-10.8) x10^3/uL RBC 4.04 L 4.02 L (4.20-5.40) 10^6/uL Hgb 12.6 12.0 (12.0-16.0) g/dL Hct 37.9 38.0 (37.0-47.0) % MCV 93.8 94.5 (81.0-99.0) fL MCH 31.2 H 29.9 (27.0-31.0) pg MCHC 33.2 31.6 L (32.0-36.0) g/dL RDW 12.3 12.6 (12.0-15.0) % Plt Count 191 199 (130-450) 10^3/uL MPV 10.9 H 10.9 H (7.9-10.8) fL Neut # (Auto) Not Reportable 3.9 (1.5-6.6) 10^3/uL Lymph # (Auto) Not Reportable 0.5 L (1.5-3.5) 10^3/uL [place] # (Auto) Not Reportable 0.5 (0.0-1.0) 10^3/uL Eos # (Auto) Not Reportable 0.0 (0.0-0.7) 10^3/uL Baso # (Auto) Not Reportable 0.0 (0.0-0.1) 10^3/uL Absolute Nucleated RBC Not Reportable 0.00 x10^3/uL Total Counted 100 Band Neuts % (Manual) 23 H (0 - 10) % Reactive Lymphs % (Man) 1 % Abnorm Lymph % (Manual) 0 % Metamyelocytes % 4 H ( - 0) % Nucleated RBC % Not Reportable 0.0 /100WBC Neutrophils # (Manual) 4.5 (1.5-6.6) 10^3/uL Lymphocytes # (Manual) 0.3 L (1.5-3.5) 10^3/uL Monocytes # (Manual) 0.1 (0.0-1.0) 10^3/uL Eosinophils # (Manual) 0.0 (0-0.7) 10^3/uL Basophils # (Manual) 0.0 (0-0.1) 10^3/uL Differential Comment MANUAL DIFFERENTIAL Manual Slide Review Indicated Platelet Estimate NORMAL (130-450,000) (NORMAL) Platelet Morphology NORMAL APPEARANCE (NORMAL) RBC Morph Micro Appear NORMAL APPEARANCE (NORMAL) Sodium 137 (135-145) mmol/L Potassium 3.9 (3.5-5.0) mmol/L Chloride 104 (101-111) mmol/L Carbon Dioxide 26 (21-32) mmol/L Anion Gap 7.0 (6-13) BUN 14 (6-20) mg/dL Creatinine 0.4 (0.4-1.0) mg/dL Estimated GFR (MDRD) 156 (>89) Glucose 147 H (70-100) mg/dL Lactic Acid (0.5-2.2) mmol/L Calcium 8.0 L (8.5-10.3) mg/dL Total Bilirubin (0.2-1.0) mg/dL AST (10-42) IU/L ALT (10-60) IU/L Alkaline Phosphatase (42-121) IU/L Troponin I High Sens (2.3-14.8) pg/mL Total Protein (6.7-8.2) g/dL Albumin (3.2-5.5) g/dL Globulin (2.1-4.2) g/dL Albumin/Globulin Ratio (1.0-2.2) - Current Medications Current Medications: Current Medications Generic Name Dose Route Start Last Admin Trade Name Freq PRN Reason Stop Dose Admin Enoxaparin Sodium 40 mg 03/05/19 09:00 03/06/19 09:03 Lovenox SUBQ 40 mg DAILY KRISTA Administration Hydromorphone HCl 0.5 mg 03/04/19 18:24 03/06/19 06:20 Dilaudid Inj Syringe IVP 0.5 mg Q1H PRN Administration PAIN Acetaminophen 100 mls @ 400 mls/hr 03/04/19 20:00 03/06/19 21:36 Ofirmev IV 400 mls/hr Q6H KRISTA Administration Potassium Chloride/Dextrose/Sod Cl 1,000 mls @ 100 mls/hr 03/06/19 18:41 03/06/19 21:37 D5.45ns W/20 Meq Kcl IV 100 mls/hr .Q10H KRISTA Administration Ondansetron HCl 4 mg 03/03/19 21:44 03/06/19 11:10 Zofran Inj IVP 4 mg Q6HR PRN Administration Nausea / Vomiting Polyethylene Glycol 17 gm 03/04/19 09:00 03/06/19 08:12 Miralax PO Not Given DAILY KRISTA Prochlorperazine Edisylate 10 mg 03/06/19 16:07 03/06/19 17:25 Compazine Inj IVP 10 mg Q4HR PRN Administration Nausea / Vomiting Sodium Chloride 10 ml 03/05/19 01:00 03/06/19 06:20 Normal Saline Flush 0.9% IVP 10 ml 0100,0900,1700 KRISTA Administration Sodium Chloride 10 ml 03/04/19 18:17 03/06/19 17:25 Normal Saline Flush 0.9% IVP 10 ml PRN PRN Administration NEEDED PER PROVIDER ORDERS Zolpidem Tartrate 5 mg 03/06/19 16:08 03/06/19 20:33 Ambien PO 5 mg QPM PRN Administration Insomnia - Physical Exam Wound/Incisions: positive: Dressing dry and intact General Appearance: positive: No acute distress Eyes Bilateral: positive: No lid inflammation, Conjunctivae nml, No scleral icterus ENT: positive: No signs of dehydration Neck: positive: Trachea midline Respiratory: positive: Chest non-tender, No respiratory distress, Breath sounds nml Cardiovascular: positive: Regular rate & rhythm Abdomen: positive: Tenderness (Incisional.), Abnml bowel sounds (Decreased.), Other (Some distention and tympany.) Skin: positive: Color nml Extremities: positive: Non-tender, Nml appearance Neurologic/Psychiatric: positive: Oriented x3, Motor nml, Sensation nml, Mood/affect nml Impression/Plan - Problem List Problem List: Day 2 status post exploratory laparotomy and adhesiolysis. Patient seems to have developed some ileus with a stoppage of her bowel movements. Considering that she has a subtotal colectomy her bowel movement should be most diarrheal in nature and as they are not occurring this is almost certainly an early postop small bowel obstruction or ileus. In either case watchful waiting is all that is required as long as the patient does not become septic. Continue IV fluids. Continue ambulation. Continue incentive sp irometry.
[2019-03-06] MEDS ORDERED: IOVERSOL 320 100 ML VIAL IVP ONE ×2 (22:23→22:51)
[2019-03-06] MEDS ORDERED: IOVERSOL 320 50 ML VIAL ONE (22:23)
--- NOTE | 2019-03-06 22:31 | PROVIDER PROGRESS NOTE ---
Subjective - General Admit Date: 03/03/19 Procedure Date: 03/04/19 Post Op Days: 2 Procedure Performed: Exploratory laparotomy and adhesiolysis - Review of Systems Wound/Incisions: positive: Dressing dry and intact General: positive: No symptoms HEENT: positive: No symptoms Pulmonary: positive: No symptoms Cardiovascular: positive: No symptoms Gastrointestinal: positive: Abdominal pain (Incisional.). negative: Flatus Genitourinary: positive: No symptoms Musculoskeletal: positive: No symptoms Skin: positive: No symptoms Psychiatric: positive: No symptoms Objective - Patient Data Vital Signs: Vital Signs x48h Temp Pulse Resp BP Pulse Ox 03/06/19 20:30 94 03/06/19 20:07 37.3 C 120 H 22 146/74 H 91 L 03/06/19 18:17 37.3 C 03/06/19 18:00 126 H 03/06/19 15:42 37.3 C 108 H 24 131/67 H 92 Intake & Output: Intake and Output Totals x24h 03/04/19 03/05/19 03/06/19 23:59 23:59 23:59 Intake Total 3260.667 2448.333 2552.493 Output Total 1200 675 450 Balance 2060.667 2079.116 7452.493 - Lab Results Lab Results: 03/06/19 19:10 03/06/19 19:10 Other Lab Results: Lab Results x24hrs 03/06/19 03/06/19 03/06/19 Range/Units 19:10 19:10 19:10 WBC (4.8-10.8) x10^3/uL RBC (4.20-5.40) 10^6/uL Hgb (12.0-16.0) g/dL Hct (37.0-47.0) % MCV (81.0-99.0) fL MCH (27.0-31.0) pg MCHC (32.0-36.0) g/dL RDW (12.0-15.0) % Plt Count (130-450) 10^3/uL MPV (7.9-10.8) fL Neut # (Auto) (1.5-6.6) 10^3/uL Lymph # (Auto) (1.5-3.5) 10^3/uL [place] # (Auto) (0.0-1.0) 10^3/uL Eos # (Auto) (0.0-0.7) 10^3/uL Baso # (Auto) (0.0-0.1) 10^3/uL Absolute Nucleated RBC x10^3/uL Total Counted Band Neuts % (Manual) (0 - 10) % Reactive Lymphs % (Man) % Abnorm Lymph % (Manual) % Metamyelocytes % ( - 0) % Nucleated RBC % /100WBC Neutrophils # (Manual) (1.5-6.6) 10^3/uL Lymphocytes # (Manual) (1.5-3.5) 10^3/uL Monocytes # (Manual) (0.0-1.0) 10^3/uL Eosinophils # (Manual) (0-0.7) 10^3/uL Basophils # (Manual) (0-0.1) 10^3/uL Differential Comment Manual Slide Review Platelet Estimate (NORMAL) Platelet Morphology (NORMAL) RBC Morph Micro Appear (NORMAL) Sodium 136 (135-145) mmol/L Potassium 3.9 (3.5-5.0) mmol/L Chloride 101 (101-111) mmol/L Carbon Dioxide 25 (21-32) mmol/L Anion Gap 10.0 (6-13) BUN 12 (6-20) mg/dL Creatinine 0.5 (0.4-1.0) mg/dL Estimated GFR (MDRD) 121 (>89) Glucose 140 H (70-100) mg/dL Lactic Acid 1.7 (0.5-2.2) mmol/L Calcium 8.2 L (8.5-10.3) mg/dL Total Bilirubin 0.9 (0.2-1.0) mg/dL AST 35 (10-42) IU/L ALT 18 (10-60) IU/L Alkaline Phosphatase 36 L (42-121) IU/L Troponin I High Sens 5.2 (2.3-14.8) pg/mL Total Protein 5.4 L (6.7-8.2) g/dL Albumin 2.9 L (3.2-5.5) g/dL Globulin 2.5 (2.1-4.2) g/dL Albumin/Globulin Ratio 1.2 (1.0-2.2) 03/06/19 03/06/19 03/06/19 Range/Units 19:10 05:05 05:05 WBC 5.0 4.9 (4.8-10.8) x10^3/uL RBC 4.04 L 4.02 L (4.20-5.40) 10^6/uL Hgb 12.6 12.0 (12.0-16.0) g/dL Hct 37.9 38.0 (37.0-47.0) % MCV 93.8 94.5 (81.0-99.0) fL MCH 31.2 H 29.9 (27.0-31.0) pg MCHC 33.2 31.6 L (32.0-36.0) g/dL RDW 12.3 12.6 (12.0-15.0) % Plt Count 191 199 (130-450) 10^3/uL MPV 10.9 H 10.9 H (7.9-10.8) fL Neut # (Auto) Not Reportable 3.9 (1.5-6.6) 10^3/uL Lymph # (Auto) Not Reportable 0.5 L (1.5-3.5) 10^3/uL [place] # (Auto) Not Reportable 0.5 (0.0-1.0) 10^3/uL Eos # (Auto) Not Reportable 0.0 (0.0-0.7) 10^3/uL Baso # (Auto) Not Reportable 0.0 (0.0-0.1) 10^3/uL Absolute Nucleated RBC Not Reportable 0.00 x10^3/uL Total Counted 100 Band Neuts % (Manual) 23 H (0 - 10) % Reactive Lymphs % (Man) 1 % Abnorm Lymph % (Manual) 0 % Metamyelocytes % 4 H ( - 0) % Nucleated RBC % Not Reportable 0.0 /100WBC Neutrophils # (Manual) 4.5 (1.5-6.6) 10^3/uL Lymphocytes # (Manual) 0.3 L (1.5-3.5) 10^3/uL Monocytes # (Manual) 0.1 (0.0-1.0) 10^3/uL Eosinophils # (Manual) 0.0 (0-0.7) 10^3/uL Basophils # (Manual) 0.0 (0-0.1) 10^3/uL Differential Comment MANUAL DIFFERENTIAL Manual Slide Review Indicated Platelet Estimate NORMAL (130-450,000) (NORMAL) Platelet Morphology NORMAL APPEARANCE (NORMAL) RBC Morph Micro Appear NORMAL APPEARANCE (NORMAL) Sodium 137 (135-145) mmol/L Potassium 3.9 (3.5-5.0) mmol/L Chloride 104 (101-111) mmol/L Carbon Dioxide 26 (21-32) mmol/L Anion Gap 7.0 (6-13) BUN 14 (6-20) mg/dL Creatinine 0.4 (0.4-1.0) mg/dL Estimated GFR (MDRD) 156 (>89) Glucose 147 H (70-100) mg/dL Lactic Acid (0.5-2.2) mmol/L Calcium 8.0 L (8.5-10.3) mg/dL Total Bilirubin (0.2-1.0) mg/dL AST (10-42) IU/L ALT (10-60) IU/L Alkaline Phosphatase (42-121) IU/L Troponin I High Sens (2.3-14.8) pg/mL Total Protein (6.7-8.2) g/dL Albumin (3.2-5.5) g/dL Globulin (2.1-4.2) g/dL Albumin/Globulin Ratio (1.0-2.2) - Current Medications Current Medications: Current Medications Generic Name Dose Route Start Last Admin Trade Name Freq PRN Reason Stop Dose Admin Enoxaparin Sodium 40 mg 03/05/19 09:00 03/06/19 09:03 Lovenox SUBQ 40 mg DAILY KRISTA Administration Hydromorphone HCl 0.5 mg 03/04/19 18:24 03/06/19 06:20 Dilaudid Inj Syringe IVP 0.5 mg Q1H PRN Administration PAIN Acetaminophen 100 mls @ 400 mls/hr 03/04/19 20:00 03/06/19 21:36 Ofirmev IV 400 mls/hr Q6H KRISTA Administration Potassium Chloride/Dextrose/Sod Cl 1,000 mls @ 100 mls/hr 03/06/19 18:41 03/06/19 21:37 D5.45ns W/20 Meq Kcl IV 100 mls/hr .Q10H KRISTA Administration Ondansetron HCl 4 mg 03/03/19 21:44 03/06/19 11:10 Zofran Inj IVP 4 mg Q6HR PRN Administration Nausea / Vomiting Polyethylene Glycol 17 gm 03/04/19 09:00 03/06/19 08:12 Miralax PO Not Given DAILY KRISTA Prochlorperazine Edisylate 10 mg 03/06/19 16:07 03/06/19 17:25 Compazine Inj IVP 10 mg Q4HR PRN Administration Nausea / Vomiting Sodium Chloride 10 ml 03/05/19 01:00 03/06/19 06:20 Normal Saline Flush 0.9% IVP 10 ml 0100,0900,1700 KRISTA Administration Sodium Chloride 10 ml 03/04/19 18:17 03/06/19 17:25 Normal Saline Flush 0.9% IVP 10 ml PRN PRN Administration NEEDED PER PROVIDER ORDERS Zolpidem Tartrate 5 mg 03/06/19 16:08 03/06/19 20:33 Ambien PO 5 mg QPM PRN Administration Insomnia
--- NOTE | 2019-03-06 23:28 | CT Report ---
Reason: Abdominal pain. Prior obstruction. Abnormal Abd Xr Procedure Date: 03/06/2019 Accession Number: [id number] / [id number] Procedure: CT - Abdomen/Pelvis W CPT Code: FULL RESULT: EXAM: CT ABDOMEN AND PELVIS EXAM DATE: 03/06/2019 10:55 PM CLINICAL HISTORY: Abdominal pain. Prior obstruction. Abnormal abdominal x-ray. COMPARISONS: ABDOMEN/PELVIS W/ 03/04/2019 11:58 AM. TECHNIQUE: Routine helical CT imaging was performed through the abdomen and pelvis. IV contrast: 100 mL Optiray 320. Enteric contrast: No. Reconstructions: Coronal and sagittal. In accordance with CT protocol optimization, one or more of the following dose reduction techniques were utilized for this exam: automated exposure control, adjustment of mA and/or KV based on patient size, or use of iterative reconstructive technique. FINDINGS: Lung Bases: Consolidation involving much of the right lower lobe, with air bronchograms and some decreased attenuation in the parenchyma. Small bilateral pleural effusions with some left lower lobe atelectasis. Liver: Several cysts in the liver, largest are 2.2 cm in the right and left lobe. No solid hepatic masses. Portal vein is patent. Gallbladder/Bile Ducts: Unremarkable. Spleen: Normal. Pancreas: Normal. Adrenal Glands: Normal. Kidneys: Normal. No masses or hydronephrosis. Peritoneal Cavity/Bowel: Dilated small bowel with air-fluid levels is again seen, and the caliber of the small bowel is mildly increased in dilatation compared to the prior study measuring up to 4.6 cm in the left abdomen. Transition to more collapsed bowel is present down in the high pelvis. Patient is status post subtotal colectomy with anastomotic sutures in the pelvis. Small volume of ascites and pneumoperitoneum which may be postsurgical. Pelvic Organs: Normal. The bladder and visualized pelvic organs are within normal limits. Vasculature: No aneurysms or other significant abnormality. Bones: No significant abnormality. Other: None. IMPRESSION: 1. Dilated small bowel, up to 4.6 cm, with transition to more collapsed bowel in the high pelvis. Worrisome for recurrent obstruction. Small ascites and pneumoperitoneum, but the pneumoperitoneum may be from recent surgery. 2. New right lower lobe pneumonia and increase in small bilateral pleural effusions. [facility] The call report notification system was initiated by Dr. Abdoulaye Marie at 11:22 PM on 03/06/2019. ADDENDUM: 03/06/19 23:55 The above call report findings were discussed with Leobardo Merchant by Dr. Abdoulaye Marie at 11:55 PM on 03/06/2019.
[2019-03-07] MEDS: PIPERACILLIN/TAZOBACTAM 4.5 GM in SODIUM CHLORIDE 0.9% MINIBAG 100 ML IV SCH ×5 (00:46→23:45)
[2019-03-07] MEDS: VANCOMYCIN INJ 1 GM in SODIUM CHLORIDE 0.9% 250 ML IV SCH ×2 (01:35→12:21)
[2019-03-07] MEDS: ACETAMINOPHEN 1,000 MG/100 ML 100 ML IV SCH ×4 (03:20→20:13)
[2019-03-07 05:49] LABS: BASOPHILS % (AUTO) 0.8 %; EOSINOPHILS % (AUTO) 0.1 %; HGB - HEMOGLOBIN 11.8 g/dL (12.0-16.0); LYMPHOCYTES % (AUTO) 5.2 %; MEAN CORPUSCULAR HEMOGLOBIN 29.8 pg (27.0-31.0); MEAN CORPUSCULAR HGB CONC 32.3 g/dL (32.0-36.0); MEAN CORPUSCULAR VOLUME 92.2 fL (81.0-99.0); MEAN PLATELET VOLUME 10.9 fL (7.9-10.8); PLT - PLATELET COUNT 235 10^3/uL (130-450); RED BLOOD COUNT 3.96 10^6/uL (4.20-5.40); RED CELL DISTRIBUTION WIDTH 12.5 % (12.0-15.0); WHITE BLOOD COUNT 9.8 x10^3/uL (4.8-10.8)
[2019-03-07 05:55] LABS: ABNORMAL LYMPHS % (MANUAL) 0 %
[2019-03-07 05:58] LABS: ALBUMIN 2.9 g/dL (3.2-5.5); BILIRUBIN,TOTAL 0.9 mg/dL (0.2-1.0); CALCIUM 8.6 mg/dL (8.5-10.3); CREATININE 0.5 mg/dL (0.4-1.0); TOTAL PROTEIN 5.7 g/dL (6.7-8.2)
[2019-03-07 06:20] LABS: BAND NEUTROPHILS % (MANUAL) 44 %; DIFFERENTIAL COMMENT MANUAL DIFFERENTIAL; LYMPHOCYTES # (MANUAL) 0.4 10^3/uL (1.5-3.5); LYMPHOCYTES % (MANUAL) 4 %; MONOCYTES # (MANUAL) 0.5 10^3/uL (0.0-1.0); PLATELET ESTIMATE, MANUAL NORMAL (130-450,000) (NORMAL); RBC MORPHOLOGY (MULTIPLE) NORMAL APPEARANCE (NORMAL)
[2019-03-07] MEDS: PANTOPRAZOLE 40 MG VIAL IVP SCH (06:34)
[2019-03-07] MEDS: SODIUM CHLORIDE FLUSH 0.9% 10 ML SYRINGE IVP SCH ×2 (06:34→18:26)
[2019-03-07] MEDS: SODIUM CHLORIDE FLUSH 0.9% 10 ML SYRINGE IVP PRN (06:35)
[2019-03-07] MEDS ORDERED: NEOSTIGMINE 0.5 MG/1 ML 10 ML MDV IVP ONE (09:24)
[2019-03-07] MEDS ORDERED: DEXAMETHASONE 4 MG/ML VIAL IVP ONE (09:24)
[2019-03-07] MEDS ORDERED: GLYCOPYRROLATE 1 MG/5 ML VIAL IVP ONE (09:24)
[2019-03-07] MEDS ORDERED: PROPOFOL 200 MG/20 ML VIAL IVP ONE (09:24)
[2019-03-07] MEDS ORDERED: ROCURONIUM 50 MG/5 ML VIAL IVP ONE (09:24)
[2019-03-07] MEDS ORDERED: fentaNYL 250 MCG/5 ML VIAL IVP ONE (09:24)
[2019-03-07] MEDS: D5.45NS W/20 MEQ KCL 1,000 ML IV SCH ×2 (09:52→23:45)
[2019-03-07] MEDS: ENOXAPARIN 40 MG/0.4 ML SYRINGE SUBQ SCH (09:52)
[2019-03-07] MEDS: POLYETHYLENE GLYCOL 3350 17 GM PACKET PO SCH (09:57)
--- NOTE | 2019-03-07 12:04 | PROVIDER PROGRESS NOTE ---
Subjective - Prog Note Date Prog Note Date: 03/07/19 - Subjective Pt reports feeling: Worse Subjective: pt [place]. but pt still had nausea and vomiting. pt report her abdominal pain is better except surgical incision site. she denies fever, chill, chest pain, shortness of breath. Current Medications - Current Medications Current Medications: Active Medications Benzocaine/Butamben/Tetracaine HCl (Cetacaine [place]) 1 sprays MM DAILY PRN PRN Reason: Throat Pain Enoxaparin Sodium (Lovenox) 40 mg SUBQ DAILY [facility] Last Admin: 03/07/19 09:52 Dose: 40 mg Hydromorphone HCl (Dilaudid Inj Syringe) 0.5 mg IVP Q1H PRN PRN Reason: PAIN Last Admin: 03/06/19 06:20 Dose: 0.5 mg Acetaminophen (Ofirmev) 100 mls @ 400 mls/hr IV Q6H [facility] Last Infusion: 03/07/19 10:36 Dose: Infused Promethazine HCl 25 mg/ Sodium (Chloride) 51 mls @ 100 mls/hr IV Q6H PRN PRN Reason: Nausea / Vomiting Potassium Chloride/Dextrose/Sod Cl (D5.45ns W/20 Meq Kcl) 1,000 mls @ 100 mls/hr IV .Q10H [facility] Last Admin: 03/07/19 09:52 Dose: 100 mls/hr Piperacillin Sod/Tazobactam (Sod 4.5 gm/ Sodium Chloride) 100 mls @ 200 mls/hr IV Q6H [facility] Last Infusion: 03/07/19 12:11 Dose: Infused Vancomycin HCl 1 gm/ Sodium (Chloride) 250 mls @ 167 mls/hr IV Q12H [facility] Last Infusion: 03/07/19 03:05 Dose: Infused Ondansetron HCl (Zofran Inj) 4 mg IVP Q6HR PRN PRN Reason: Nausea / Vomiting Last Admin: 03/06/19 11:10 Dose: 4 mg Pantoprazole Sodium (Protonix) 40 mg IVP QDAC [facility] Last Admin: 03/07/19 06:34 Dose: 40 mg Phenol/Menthol (Chloraseptic) 1 sprays MM Q2HR PRN PRN Reason: Throat Pain Polyethylene Glycol (Miralax) 17 gm PO DAILY [facility] Last Admin: 03/07/19 09:57 Dose: Not Given Prochlorperazine Edisylate (Compazine Inj) 10 mg IVP Q4HR PRN PRN Reason: Nausea / Vomiting Last Admin: 03/06/19 17:25 Dose: 10 mg Sodium Chloride (Normal Saline Flush 0.9%) 10 ml IVP 0100,0900,1700 KRISTA Last Admin: 03/07/19 06:34 Dose: 10 ml Sodium Chloride (Normal Saline Flush 0.9%) 10 ml IVP PRN PRN PRN Reason: NEEDED PER PROVIDER ORDERS Last Admin: 03/07/19 06:35 Dose: 10 ml Zolpidem Tartrate (Ambien) 5 mg PO QPM PRN PRN Reason: Insomnia Last Admin: 03/06/19 20:33 Dose: 5 mg Cholecalciferol (Vitamin D3) [Vitamin D] 2,000 unit PO DAILY 06/08/14 D-Mannose [Mannxtra] 1 tab PO UD 03/04/19 Multivitamin,Therapeutic [Thera] 1 each PO DAILY 03/04/19 Objective - Vital Signs/Intake & Output Reviewed Vital Signs: Yes Vital Signs: Vital Signs x48h Temp Pulse Resp BP Pulse Ox 03/07/19 08:23 36.8 C 104 H 20 146/70 H 96 03/07/19 06:42 102 H 16 95 Intake & Output: Intake & Output 03/04/19 03/05/19 03/06/19 03/07/19 23:59 23:59 23:59 23:59 Intake Total 3260.667 2448.333 3949.993 1850 Output Total 1200 039 467 4282 Balance 2060.667 4788.842 0939.993 -775 - Objective General Appearance: positive: No acute distress, Alert. negative: Lethargic Eyes Bilateral: positive: Normal inspection, PERRL, No lid inflammation, Conjunctivae nml ENT: positive: ENT inspection nml, Pharynx nml, No signs of dehydration. negative: Purulent nasal drainage, Pharyngeal erythema, Oral lesions Neck: positive: Nml inspection, Thyroid nml, No JVD, Trachea midline. negative: Thyromegaly, Lymphadenopathy (R), Lymphadenopathy (L), Stiff neck, Swelling/bruising, Tracheal deviation Respiratory: positive: Chest non-tender, No respiratory distress, Breath sounds nml. negative: Wheezes, Rales, Rhonchi Cardiovascular: positive: Regular rate & rhythm, No murmur, No gallop, Tachycardia. negative: Irregularly irregular, Extrasystoles, Bradycardia, JVD present, Systolic murmur, Diastolic murmur Peripheral Pulses: 2+ Radial (R), 2+ Radial (L), 2+ Dorsalis pedis (R), 2+ Dorsalis pedis (L) Abdomen: positive: Non-tender, No organomegaly, Other (hypoactive bowel sound with mild distension). negative: Nml bowel sounds, No distention, Tenderness, Guarding, Rebound Back: positive: Nml inspection. negative: CVA tenderness (R), CVA tenderness (L) Skin: positive: Color nml, No rash, Warm, Dry. negative: Cyanosis, Diaphoresis, Pallor Extremities: positive: Non-tender, Full ROM, Nml appearance. negative: Calf tenderness, Joint swelling, Penny's sign/cords Neurologic/Psychiatric: positive: Oriented x3, Motor nml, Sensation nml, Mood/affect nml. negative: Weakness, Sensory loss, Facial droop, Slurred/abnml speech, Depressed mood/affect - Lab Results Fish Bones: 03/07/19 05:25 03/07/19 05:25 Other Labs: Lab Results x24hrs 03/07/19 03/07/19 03/06/19 Range/Units 05:25 05:25 19:10 WBC 9.8 (4.8-10.8) x10^3/uL RBC 3.96 L (4.20-5.40) 10^6/uL Hgb 11.8 L (12.0-16.0) g/dL Hct 36.5 L (37.0-47.0) % MCV 92.2 (81.0-99.0) fL MCH 29.8 (27.0-31.0) pg MCHC 32.3 (32.0-36.0) g/dL RDW 12.5 (12.0-15.0) % Plt Count 235 (130-450) 10^3/uL MPV 10.9 H (7.9-10.8) fL Neut # (Auto) Not Reportable Lymph # (Auto) Not Reportable [place] # (Auto) Not Reportable Eos # (Auto) Not Reportable Baso # (Auto) Not Reportable Absolute Nucleated RBC Not Reportable Total Counted 100 Band Neuts % (Manual) 44 H (0 - 10) % Reactive Lymphs % (Man) % Abnorm Lymph % (Manual) 0 % Metamyelocytes % ( - 0) % Nucleated RBC % Not Reportable Neutrophils # (Manual) 8.9 H (1.5-6.6) 10^3/uL Lymphocytes # (Manual) 0.4 L (1.5-3.5) 10^3/uL Monocytes # (Manual) 0.5 (0.0-1.0) 10^3/uL Eosinophils # (Manual) 0.0 (0-0.7) 10^3/uL Basophils # (Manual) 0.0 (0-0.1) 10^3/uL Differential Comment MANUAL DIFFERENTIAL Manual Slide Review Platelet Estimate NORMAL (130-450,000) (NORMAL) Platelet Morphology (NORMAL) RBC Morph Micro Appear NORMAL APPEARANCE (NORMAL) Sodium 137 (135-145) mmol/L Potassium 3.6 (3.5-5.0) mmol/L Chloride 101 (101-111) mmol/L Carbon Dioxide 26 (21-32) mmol/L Anion Gap 10.0 (6-13) BUN 13 (6-20) mg/dL Creatinine 0.5 (0.4-1.0) mg/dL Estimated GFR (MDRD) 121 (>89) Glucose 145 H (70-100) mg/dL Lactic Acid (0.5-2.2) mmol/L Calcium 8.6 (8.5-10.3) mg/dL Total Bilirubin 0.9 (0.2-1.0) mg/dL AST 39 (10-42) IU/L ALT 24 (10-60) IU/L Alkaline Phosphatase 43 (42-121) IU/L Troponin I High Sens 5.2 (2.3-14.8) pg/mL Total Protein 5.7 L (6.7-8.2) g/dL Albumin 2.9 L (3.2-5.5) g/dL Globulin 2.8 (2.1-4.2) g/dL Albumin/Globulin Ratio 1.0 (1.0-2.2) 03/06/19 03/06/19 03/06/19 Range/Units 19:10 19:10 19:10 WBC 5.0 (4.8-10.8) x10^3/uL RBC 4.04 L (4.20-5.40) 10^6/uL Hgb 12.6 (12.0-16.0) g/dL Hct 37.9 (37.0-47.0) % MCV 93.8 (81.0-99.0) fL MCH 31.2 H (27.0-31.0) pg MCHC 33.2 (32.0-36.0) g/dL RDW 12.3 (12.0-15.0) % Plt Count 191 (130-450) 10^3/uL MPV 10.9 H (7.9-10.8) fL Neut # (Auto) Not Reportable Lymph # (Auto) Not Reportable [place] # (Auto) Not Reportable Eos # (Auto) Not Reportable Baso # (Auto) Not Reportable Absolute Nucleated RBC Not Reportable Total Counted 100 Band Neuts % (Manual) 23 H (0 - 10) % Reactive Lymphs % (Man) 1 % Abnorm Lymph % (Manual) 0 % Metamyelocytes % 4 H ( - 0) % Nucleated RBC % Not Reportable Neutrophils # (Manual) 4.5 (1.5-6.6) 10^3/uL Lymphocytes # (Manual) 0.3 L (1.5-3.5) 10^3/uL Monocytes # (Manual) 0.1 (0.0-1.0) 10^3/uL Eosinophils # (Manual) 0.0 (0-0.7) 10^3/uL Basophils # (Manual) 0.0 (0-0.1) 10^3/uL Differential Comment MANUAL DIFFERENTIAL Manual Slide Review Indicated Platelet Estimate NORMAL (130-450,000) (NORMAL) Platelet Morphology NORMAL APPEARANCE (NORMAL) RBC Morph Micro Appear NORMAL APPEARANCE (NORMAL) Sodium 136 (135-145) mmol/L Potassium 3.9 (3.5-5.0) mmol/L Chloride 101 (101-111) mmol/L Carbon Dioxide 25 (21-32) mmol/L Anion Gap 10.0 (6-13) BUN 12 (6-20) mg/dL Creatinine 0.5 (0.4-1.0) mg/dL Estimated GFR (MDRD) 121 (>89) Glucose 140 H (70-100) mg/dL Lactic Acid 1.7 (0.5-2.2) mmol/L Calcium 8.2 L (8.5-10.3) mg/dL Total Bilirubin 0.9 (0.2-1.0) mg/dL AST 35 (10-42) IU/L ALT 18 (10-60) IU/L Alkaline Phosphatase 36 L (42-121) IU/L Troponin I High Sens (2.3-14.8) pg/mL Total Protein 5.4 L (6.7-8.2) g/dL Albumin 2.9 L (3.2-5.5) g/dL Globulin 2.5 (2.1-4.2) g/dL Albumin/Globulin Ratio 1.2 (1.0-2.2) ABX Reporting Has patient been on IV antibiotics over the past 48 hours?: Yes Assessment/Plan - Problem List (1) Small bowel obstruction due to postoperative adhesions Impression: 03/07 pt present nausea and vomiting again. CT of abdomen reveals dilated small bowel, worrisome for recurrent obstruction. plan: NG tube continue IVF NPO followup surgeon 03/06 s/p surgery of Exploratory laparotomy and adhesiolysis day two. pt report she had bowel movement today but she report she feel lots of nausea without vomiting. unknown etiology of nausea. add phenergan and companzin PRN for nausea continue pain control and gently IVF add ambien PRN for her sleep 03/05 s/p surgery of Exploratory laparotomy and adhesiolysis day one followup surgeon's recommendation pain control encourage ambulation 03/04 although clinically pt had improved, reduced abdominal pain, no N/V now. but new CT of abdomen today morning reveals SBO surgeon knew the updated CT result continue NPO encourage ambulate IVF of D5 pain control continue NG tube now (2)pneumonia 03/[address], and restless clinically, and required [address] reveals new right lower lobe pneumonia. after treatment, pt report she feel much better. Plan: pt had Zosyn and Vancomycin on last night, ordered by night provider. continue antibiotics supplement of O2 as needed blood culture is pending vital and tele monitor pt (3) Crohn disease Conclusion/Plan: stable. pt is not on any medication. pt report she is s/p partial colectomy in 1990.
--- NOTE | 2019-03-07 23:22 | XRAY Report ---
Reason: Verify NGT placement Procedure Date: 03/07/2019 Accession Number: [id number] / [id number] Procedure: XR - Chest 1 View X-Ray CPT Code: 80218 FULL RESULT: EXAM: CHEST RADIOGRAPHY EXAM DATE: 03/07/2019 11:13 PM. CLINICAL HISTORY: Verify NGT placement. COMPARISON: ABDOMEN 2 VIEW 03/06/2019 8:02 PM. TECHNIQUE: 1 view. FINDINGS: Lungs/Pleura: Bibasilar opacities and small bilateral pleural effusions. Mediastinum: Within exam limitations, the cardiomediastinal contour is normal. Other: Dilated loops of small bowel in the upper abdomen. IMPRESSION: 1. The enteric tube tip is in the left upper quadrant in the region of the stomach. 2. Bibasilar atelectasis versus consolidation and small bilateral pleural effusions. RADIA
[2019-03-08] MEDS: VANCOMYCIN INJ 1 GM in SODIUM CHLORIDE 0.9% 250 ML IV SCH ×2 (00:24→13:46)
[2019-03-08] MEDS: SODIUM CHLORIDE FLUSH 0.9% 10 ML SYRINGE IVP SCH ×3 (01:37→18:01)
[2019-03-08] MEDS: ACETAMINOPHEN 1,000 MG/100 ML 100 ML IV SCH ×4 (04:41→20:28)
[2019-03-08 05:35] LABS: BASOPHILS % (AUTO) 0.2 %; EOSINOPHILS % (AUTO) 0.8 %; HGB - HEMOGLOBIN 10.9 g/dL (12.0-16.0); LYMPHOCYTES % (AUTO) 5.7 %; MEAN CORPUSCULAR HEMOGLOBIN 30.1 pg (27.0-31.0); MEAN CORPUSCULAR HGB CONC 32.2 g/dL (32.0-36.0); MEAN CORPUSCULAR VOLUME 93.6 fL (81.0-99.0); MEAN PLATELET VOLUME 10.8 fL (7.9-10.8); MONOCYTES % (AUTO) 4.2 %; NEUTROPHILS % (AUTO) 87.6 %; PLT - PLATELET COUNT 250 10^3/uL (130-450); RED BLOOD COUNT 3.62 10^6/uL (4.20-5.40); RED CELL DISTRIBUTION WIDTH 12.6 % (12.0-15.0); WHITE BLOOD COUNT 10.5 x10^3/uL (4.8-10.8)
[2019-03-08 05:41] LABS: ABNORMAL LYMPHS % (MANUAL) 0 %
[2019-03-08 05:42] LABS: ALBUMIN 2.6 g/dL (3.2-5.5); ALBUMIN/GLOBULIN RATIO 0.9 (1.0-2.2); BILIRUBIN,TOTAL 0.6 mg/dL (0.2-1.0); CALCIUM 8.2 mg/dL (8.5-10.3); CREATININE 0.5 mg/dL (0.4-1.0); TOTAL PROTEIN 5.5 g/dL (6.7-8.2)
[2019-03-08] MEDS: PIPERACILLIN/TAZOBACTAM 4.5 GM in SODIUM CHLORIDE 0.9% MINIBAG 100 ML IV SCH ×4 (05:45→23:45)
[2019-03-08] MEDS: PANTOPRAZOLE 40 MG VIAL IVP SCH (05:47)
[2019-03-08] MEDS: SODIUM CHLORIDE FLUSH 0.9% 10 ML SYRINGE IVP PRN (05:47)
[2019-03-08 06:05] LABS: BAND NEUTROPHILS % (MANUAL) 18 %; DIFFERENTIAL COMMENT MANUAL DIFFERENTIAL; LYMPHOCYTES # (MANUAL) 0.2 10^3/uL (1.5-3.5); LYMPHOCYTES % (MANUAL) 2 %; METAMYELOCYTES % (MANUAL) 3 %; MONOCYTES # (MANUAL) 0.6 10^3/uL (0.0-1.0); MYELOCYTES % (MANUAL) 3 %; PLATELET ESTIMATE, MANUAL NORMAL (130-450,000) (NORMAL); RBC MORPHOLOGY (MULTIPLE) NORMAL APPEARANCE (NORMAL)
[2019-03-08] MEDS: D5.45NS W/20 MEQ KCL 1,000 ML IV SCH ×2 (09:11→20:27)
[2019-03-08] MEDS: ENOXAPARIN 40 MG/0.4 ML SYRINGE SUBQ SCH (09:18)
[2019-03-08] MEDS: POTASSIUM CHLOR 10 MEQ/100 ML 10 MEQ/100 ML BAG IV SCH ×3 (09:44→12:20)
[2019-03-08] MEDS: POLYETHYLENE GLYCOL 3350 17 GM PACKET PO SCH (09:51)
[2019-03-08] MEDS ORDERED: IOVERSOL 320 100 ML VIAL IVP ONE ×2 (14:09→15:19)
--- NOTE | 2019-03-08 14:48 | PROVIDER PROGRESS NOTE ---
Subjective - General Admit Date: 03/03/19 Procedure Date: 03/04/19 Post Op Days: 5 Procedure Performed: Exploratory laparotomy and adhesiolysis - Review of Systems Wound/Incisions: positive: Dressing dry and intact General: positive: No symptoms HEENT: positive: No symptoms Pulmonary: positive: No symptoms Cardiovascular: positive: No symptoms Gastrointestinal: positive: Abdominal pain (Incisional and decreased.), Other (Passing gas and having bowel movements.) Genitourinary: positive: No symptoms Musculoskeletal: positive: No symptoms Skin: positive: No symptoms Psychiatric: positive: No symptoms Objective - Patient Data Reviewed Vital Signs: Yes Vital Signs: Vital Signs x48h Temp Pulse Resp BP Pulse Ox 03/08/19 13:00 36.6 C 91 18 145/68 H 97 03/08/19 08:53 36.7 C 94 17 145/68 H 98 Intake & Output: Intake and Output Totals x24h 03/06/19 03/07/19 03/08/19 23:59 23:59 23:59 Intake Total 3949.993 3500.000 2113.333 Output Total 600 3800 975 Balance 3349.993 -722.367 2221.333 - Lab Results Lab Results: 03/09/19 04:50 03/09/19 04:50 Other Lab Results: Lab Results x24hrs 03/08/19 03/08/19 03/08/19 Range/Units 05:00 05:00 05:00 WBC 10.5 (4.8-10.8) x10^3/uL RBC 3.62 L (4.20-5.40) 10^6/uL Hgb 10.9 L (12.0-16.0) g/dL Hct 33.9 L (37.0-47.0) % MCV 93.6 (81.0-99.0) fL MCH 30.1 (27.0-31.0) pg MCHC 32.2 (32.0-36.0) g/dL RDW 12.6 (12.0-15.0) % Plt Count 250 (130-450) 10^3/uL MPV 10.8 (7.9-10.8) fL Neut # (Auto) Not Reportable Lymph # (Auto) Not Reportable [place] # (Auto) Not Reportable Eos # (Auto) Not Reportable Baso # (Auto) Not Reportable Absolute Nucleated RBC Not Reportable Total Counted 100 Band Neuts % (Manual) 18 H (0 - 10) % Abnorm Lymph % (Manual) 0 % Metamyelocytes % 3 H ( - 0) % Myelocytes % 3 H ( - 0) % Nucleated RBC % Not Reportable Neutrophils # (Manual) 9.0 H (1.5-6.6) 10^3/uL Lymphocytes # (Manual) 0.2 L (1.5-3.5) 10^3/uL Monocytes # (Manual) 0.6 (0.0-1.0) 10^3/uL Eosinophils # (Manual) 0.0 (0-0.7) 10^3/uL Basophils # (Manual) 0.0 (0-0.1) 10^3/uL Differential Comment MANUAL DIFFERENTIAL Platelet Estimate NORMAL (130-450,000) (NORMAL) RBC Morph Micro Appear NORMAL APPEARANCE (NORMAL) Sodium 139 (135-145) mmol/L Potassium 3.5 (3.5-5.0) mmol/L Chloride 105 (101-111) mmol/L Carbon Dioxide 26 (21-32) mmol/L Anion Gap 8.0 (6-13) BUN 18 (6-20) mg/dL Creatinine 0.5 (0.4-1.0) mg/dL Estimated GFR (MDRD) 121 (>89) Glucose 113 H (70-100) mg/dL Calcium 8.2 L (8.5-10.3) mg/dL Magnesium 1.8 (1.7-2.8) mg/dL Total Bilirubin 0.6 (0.2-1.0) mg/dL AST 36 (10-42) IU/L ALT 27 (10-60) IU/L Alkaline Phosphatase 53 (42-121) IU/L Total Protein 5.5 L (6.7-8.2) g/dL Albumin 2.6 L (3.2-5.5) g/dL Globulin 2.9 (2.1-4.2) g/dL Albumin/Globulin Ratio 0.9 L (1.0-2.2) - Current Medications Current Medications: Current Medications Generic Name Dose Route Start Last Admin Trade Name Freq PRN Reason Stop Dose Admin Enoxaparin Sodium 40 mg 03/05/19 09:00 03/08/19 09:18 Lovenox SUBQ 40 mg DAILY KRISTA Administration Hydromorphone HCl 0.5 mg 03/04/19 18:24 03/06/19 06:20 Dilaudid Inj Syringe IVP 0.5 mg Q1H PRN Administration PAIN Acetaminophen 100 mls @ 400 mls/hr 03/04/19 20:00 03/08/19 09:52 Ofirmev IV Infused Q6H KRISTA Infusion Potassium Chloride/Dextrose/Sod Cl 1,000 mls @ 100 mls/hr 03/06/19 18:41 03/08/19 09:11 D5.45ns W/20 Meq Kcl IV 100 mls/hr .Q10H KRISTA Administration Piperacillin Sod/Tazobactam 100 mls @ 200 mls/hr 03/06/19 23:45 03/08/19 13:07 Sod 4.5 gm/ Sodium Chloride IV Infused Q6H KRISTA Infusion Vancomycin HCl 1 gm/ Sodium 250 mls @ 167 mls/hr 03/06/19 23:45 03/08/19 13:46 Chloride IV 167 mls/hr Q12H KRISTA Administration Ondansetron HCl 4 mg 03/03/19 21:44 03/06/19 11:10 Zofran Inj IVP 4 mg Q6HR PRN Administration Nausea / Vomiting Pantoprazole Sodium 40 mg 03/07/19 07:00 03/08/19 05:47 Protonix IVP 40 mg QDAC KRISTA Administration Prochlorperazine Edisylate 10 mg 03/06/19 16:07 03/06/19 17:25 Compazine Inj IVP 10 mg Q4HR PRN Administration Nausea / Vomiting Sodium Chloride 10 ml 03/05/19 01:00 03/08/19 14:22 Normal Saline Flush 0.9% IVP Not Given 0100,0900,1700 KRISTA Sodium Chloride 10 ml 03/04/19 18:17 03/08/19 05:47 Normal Saline Flush 0.9% IVP 10 ml PRN PRN Administration NEEDED PER PROVIDER ORDERS Zolpidem Tartrate 5 mg 03/06/19 16:08 03/06/19 20:33 Ambien PO 5 mg QPM PRN Administration Insomnia - Physical Exam Wound/Incisions: positive: Dressing dry and intact General Appearance: positive: No acute distress Eyes Bilateral: positive: No lid inflammation, Conjunctivae nml ENT: positive: No signs of dehydration Neck: positive: Trachea midline Respiratory: positive: Chest non-tender, Breath sounds nml Cardiovascular: positive: Regular rate & rhythm Abdomen: positive: Tenderness (Incisional.) Skin: positive: Color nml Extremities: positive: Non-tender, Nml appearance Neurologic/Psychiatric: positive: Oriented x3, Motor nml, Sensation nml, Mood/affect nml ABX Reporting Has patient been on IV antibiotics over the past 48 hours?: Yes Impression/Plan - Problem List Problem List: D4 s/p adhesiolysis WBC normal but still higher than before with left shift (bands now including metamyelocytes and myelocytes) but without clinical evidence of infection. Have ordered a CT scan of chest/abdomen and pelvis looking for site versus reactive bone marrow.
--- NOTE | 2019-03-08 15:17 | CT Report ---
Reason: Elevated WBC postoperatively Procedure Date: 03/08/2019 Accession Number: [id number] / [id number] Procedure: CT - CHEST W CPT Code: FULL RESULT: EXAM: CT CHEST EXAM DATE: 03/08/2019 02:48 PM. CLINICAL HISTORY: Elevated WBC postoperatively. COMPARISONS: CHEST 1 VIEW 03/07/2019 10:53 PM ABDOMEN/PELVIS W/ 03/08/2019 2:33 PM. TECHNIQUE: Routine helical CT imaging was performed through the chest. IV contrast: 90 cc of Optiray 320. Reconstructions: Coronal and sagittal. In accordance with CT protocol optimization, one or more of the following dose reduction techniques were utilized for this exam: automated exposure control, adjustment of mA and/or KV based on patient size, or use of iterative reconstructive technique. FINDINGS: Lungs/Pleura: Small bilateral pleural effusions. There is consolidation in the right lower lobe. Groundglass opacities are also seen in this area. There is mild atelectasis in the lingula. Minimal left basilar compressive atelectasis. No pneumothorax. Probable atelectasis or scarring in the right upper lobe. This has a slightly nodular appearance as seen on series 5, image 47. Follow-up to resolution recommended. Mediastinum: Normal. No adenopathy or masses. The heart and great vessels are normal. Bones: Unremarkable. Visualized Abdomen: Please refer to same day CT abdomen and pelvis. Other: None. IMPRESSION: 1. Consolidation in the right lower lobe with groundglass opacities. In the appropriate clinical setting, this is most likely due to infection. 2. Probable atelectasis or scarring in the right upper lobe which has a slightly nodular appearance. Follow-up to resolution recommended. ELOYA The call report notification system was initiated by Dr. Kassie Tran at 03:08 PM on 03/08/2019. The above call report findings were discussed with Adam Fletcher by Dr. Kassie Tran at 03:15 PM on 03/08/2019.
--- NOTE | 2019-03-08 15:30 | CT Report ---
Reason: Elevated WBC postoperatively Procedure Date: 03/08/2019 Accession Number: [id number] / [id number] Procedure: CT - Abdomen/Pelvis W CPT Code: FULL RESULT: EXAM: CT ABDOMEN AND PELVIS EXAM DATE: 03/08/2019 02:48 PM. CLINICAL HISTORY: Elevated WBC postoperatively. COMPARISONS: ABDOMEN/PELVIS W/ 03/06/2019 10:41 PM. TECHNIQUE: Routine helical CT imaging was performed through the abdomen and pelvis. IV contrast: OPTI 320 90ML. Enteric contrast: No. Reconstructions: Coronal and sagittal. In accordance with CT protocol optimization, one or more of the following dose reduction techniques were utilized for this exam: automated exposure control, adjustment of mA and/or KV based on patient size, or use of iterative reconstructive technique. FINDINGS: Lung Bases: [id number] sized bilateral clear pleural effusions. A moderate right lower lobe consolidative opacity/ pneumonia or aspiration, unchanged since prior. Smaller focus of dependent atelectasis and consolidation in right upper lobe and left lower lobe as well. Liver: 2 cm Simple cysts in left and right lobes of liver. No concerning masses. Gallbladder/Bile Ducts: Unremarkable. Spleen: Normal. Pancreas: Normal. Adrenal Glands: Normal. Kidneys: Normal. No masses or hydronephrosis. Peritoneal Cavity/Bowel: No interval change in the extent of dilatation of small bowel loops since prior CT dated 03/06/2019. Distal small bowel loops also demonstrate dilatation to a lesser degree. There is no definite transition point. Ileus versus small bowel obstruction. With no interval change since 03 06 19. Small volume abdominal pelvic ascites noted. Appendix is not definitively visualized. Pelvic Organs: Normal. The bladder and visualized pelvic organs are within normal limits. Vasculature: No aneurysms or other significant abnormality. Bones: No significant abnormality. Other: None. IMPRESSION: Overall findings are unchanged since prior CT dated 03/06/2019. Dependent opacities, largest in the right lower lobe with [id number] bilateral pleural effusions. Suggestive of multifocal pneumonia versus aspiration; Unchanged since prior. No interval change in the extent of dilatation of small bowel loops, as described above. Findings remain concerning for ileus versus small bowel obstruction. No definite transition point noted. No pneumatosis intestinalis to suggest bowel ischemia. Unchanged small volume abdominal pelvic ascites. Multiple hepatic cysts. RADIA
--- NOTE | 2019-03-08 16:16 | PROVIDER PROGRESS NOTE ---
Subjective - Prog Note Date Prog Note Date: 03/08/19 Prog Note Time: 16:16 - Subjective Pt reports feeling: Improved Subjective: walking in halls, less abd distension Current Medications - Current Medications Current Medications: Active Medications Benzocaine/Butamben/Tetracaine HCl (Cetacaine [place]) 1 sprays MM DAILY PRN PRN Reason: Throat Pain Enoxaparin Sodium (Lovenox) 40 mg SUBQ DAILY [facility] Last Admin: 03/08/19 09:18 Dose: 40 mg Hydromorphone HCl (Dilaudid Inj Syringe) 0.5 mg IVP Q1H PRN PRN Reason: PAIN Last Admin: 03/06/19 06:20 Dose: 0.5 mg Acetaminophen (Ofirmev) 100 mls @ 400 mls/hr IV Q6H [facility] Last Admin: 03/08/19 15:01 Dose: 400 mls/hr Promethazine HCl 25 mg/ Sodium (Chloride) 51 mls @ 100 mls/hr IV Q6H PRN PRN Reason: Nausea / Vomiting Potassium Chloride/Dextrose/Sod Cl (D5.45ns W/20 Meq Kcl) 1,000 mls @ 100 mls/hr IV .Q10H [facility] Last Admin: 03/08/19 09:11 Dose: 100 mls/hr Piperacillin Sod/Tazobactam (Sod 4.5 gm/ Sodium Chloride) 100 mls @ 200 mls/hr IV Q6H [facility] Last Infusion: 03/08/19 13:07 Dose: Infused Vancomycin HCl 1 gm/ Sodium (Chloride) 250 mls @ 167 mls/hr IV Q12H [facility] Last Admin: 03/08/19 13:46 Dose: 167 mls/hr Ondansetron HCl (Zofran Inj) 4 mg IVP Q6HR PRN PRN Reason: Nausea / Vomiting Last Admin: 03/06/19 11:10 Dose: 4 mg Pantoprazole Sodium (Protonix) 40 mg IVP QDAC [facility] Last Admin: 03/08/19 05:47 Dose: 40 mg Phenol/Menthol (Chloraseptic) 1 sprays MM Q2HR PRN PRN Reason: Throat Pain Prochlorperazine Edisylate (Compazine Inj) 10 mg IVP Q4HR PRN PRN Reason: Nausea / Vomiting Last Admin: 03/06/19 17:25 Dose: 10 mg Sodium Chloride (Normal Saline Flush 0.9%) 10 ml IVP 0100,0900,1700 [facility] Last Admin: 03/08/19 14:22 Dose: Not Given Sodium Chloride (Normal Saline Flush 0.9%) 10 ml IVP PRN PRN PRN Reason: NEEDED PER PROVIDER ORDERS Last Admin: 03/08/19 05:47 Dose: 10 ml Zolpidem Tartrate (Ambien) 5 mg PO QPM PRN PRN Reason: Insomnia Last Admin: 03/06/19 20:33 Dose: 5 mg Cholecalciferol (Vitamin D3) [Vitamin D] 2,000 unit PO DAILY 06/08/14 D-Mannose [Mannxtra] 1 tab PO UD 03/04/19 Multivitamin,Therapeutic [Thera] 1 each PO DAILY 03/04/19 Objective - Vital Signs/Intake & Output Reviewed Vital Signs: Yes Vital Signs: Vital Signs x48h Temp Pulse Resp BP Pulse Ox 03/08/19 13:00 36.6 C 91 18 145/68 H 97 03/08/19 08:53 36.7 C 94 17 145/68 H 98 Intake & Output: Intake & Output 03/05/19 03/06/19 03/07/19 03/08/19 23:59 23:59 23:59 23:59 Intake Total 2448.333 3949.993 3500.000 2113.333 Output Total 702 305 7830 975 Balance 1853.741 6647.993 -008.748 9018.333 - Objective General Appearance: positive: Alert Eyes Bilateral: positive: PERRL ENT: positive: Pharynx nml Neck: positive: No JVD. negative: Stiff neck, Carotid bruit Respiratory: positive: Chest non-tender, Other (pneumonia not audible on exam). negative: Wheezes, Rales, Rhonchi Cardiovascular: positive: Regular rate & rhythm. negative: Gallop/S4, Friction rub Abdomen: positive: No organomegaly, Nml bowel sounds, No distention Extremities: positive: Non-tender, No pedal edema Neurologic/Psychiatric: positive: Oriented x3, CN's nml (2-12), Motor nml - Lab Results Fish Bones: 03/08/19 05:00 03/08/19 05:00 Other Labs: Lab Results x24hrs 03/08/19 03/08/19 03/08/19 Range/Units 05:00 05:00 05:00 WBC 10.5 (4.8-10.8) x10^3/uL RBC 3.62 L (4.20-5.40) 10^6/uL Hgb 10.9 L (12.0-16.0) g/dL Hct 33.9 L (37.0-47.0) % MCV 93.6 (81.0-99.0) fL MCH 30.1 (27.0-31.0) pg MCHC 32.2 (32.0-36.0) g/dL RDW 12.6 (12.0-15.0) % Plt Count 250 (130-450) 10^3/uL MPV 10.8 (7.9-10.8) fL Neut # (Auto) Not Reportable Lymph # (Auto) Not Reportable [place] # (Auto) Not Reportable Eos # (Auto) Not Reportable Baso # (Auto) Not Reportable Absolute Nucleated RBC Not Reportable Total Counted 100 Band Neuts % (Manual) 18 H (0 - 10) % Abnorm Lymph % (Manual) 0 % Metamyelocytes % 3 H ( - 0) % Myelocytes % 3 H ( - 0) % Nucleated RBC % Not Reportable Neutrophils # (Manual) 9.0 H (1.5-6.6) 10^3/uL Lymphocytes # (Manual) 0.2 L (1.5-3.5) 10^3/uL Monocytes # (Manual) 0.6 (0.0-1.0) 10^3/uL Eosinophils # (Manual) 0.0 (0-0.7) 10^3/uL Basophils # (Manual) 0.0 (0-0.1) 10^3/uL Differential Comment MANUAL DIFFERENTIAL Platelet Estimate NORMAL (130-450,000) (NORMAL) RBC Morph Micro Appear NORMAL APPEARANCE (NORMAL) Sodium 139 (135-145) mmol/L Potassium 3.5 (3.5-5.0) mmol/L Chloride 105 (101-111) mmol/L Carbon Dioxide 26 (21-32) mmol/L Anion Gap 8.0 (6-13) BUN 18 (6-20) mg/dL Creatinine 0.5 (0.4-1.0) mg/dL Estimated GFR (MDRD) 121 (>89) Glucose 113 H (70-100) mg/dL Calcium 8.2 L (8.5-10.3) mg/dL Magnesium 1.8 (1.7-2.8) mg/dL Total Bilirubin 0.6 (0.2-1.0) mg/dL AST 36 (10-42) IU/L ALT 27 (10-60) IU/L Alkaline Phosphatase 53 (42-121) IU/L Total Protein 5.5 L (6.7-8.2) g/dL Albumin 2.6 L (3.2-5.5) g/dL Globulin 2.9 (2.1-4.2) g/dL Albumin/Globulin Ratio 0.9 L (1.0-2.2) ABX Reporting Has patient been on IV antibiotics over the past 48 hours?: Yes Sepsis Event Note (H) - Evaluation Current Stage of Sepsis: Ruled out Assessment/Plan - Problem List (1) Small bowel obstruction Impression: 03/08 POD #4 No new problems. Seen by surgery. NG out. Having BM. Diet to be advanced. 03/07 POD #3 pt present nausea and vomiting again. CT of abdomen reveals dilated small bowel, worrisome for recurrent obstruction. plan: NG tube continue IVF NPO followup surgeon 03/06 s/p surgery of Exploratory laparotomy and adhesiolysis day two. pt report she had bowel movement today but she report she feel lots of nausea without vomiting. unknown etiology of nausea. add phenergan and companzin PRN for nausea continue pain control and gently IVF add ambien PRN for her sleep 03/05 s/p surgery of Exploratory laparotomy and adhesiolysis day one followup surgeon's recommendation pain control encourage ambulation 03/04 although clinically pt had improved, reduced abdominal pain, no N/V now. but new CT of abdomen today morning reveals SBO surgeon knew the updated CT result continue NPO encourage ambulate IVF of D5 pain control continue NG tube now (2)pneumonia 03/08 Day #2 of zosyn and vancomycin. No fever. 98% on room air. 03/[address], and restless clinically, and required [address] reveals new right lower lobe pneumonia. after treatment, pt report she feel much better. Plan: pt had Zosyn and Vancomycin on last night, ordered by night provider. continue antibiotics supplement of O2 as needed blood culture is pending vital and tele monitor pt
[2019-03-09] MEDS: SODIUM CHLORIDE FLUSH 0.9% 10 ML SYRINGE IVP SCH ×3 (01:42→18:59)
[2019-03-09] MEDS: VANCOMYCIN INJ 1 GM in SODIUM CHLORIDE 0.9% 250 ML IV SCH (01:46)
[2019-03-09] MEDS: ACETAMINOPHEN 1,000 MG/100 ML 100 ML IV SCH (04:44)
[2019-03-09 05:11] LABS: BASOPHILS % (AUTO) 0.7 %; EOSINOPHILS % (AUTO) 0.9 %; HGB - HEMOGLOBIN 11.5 g/dL (12.0-16.0); LYMPHOCYTES % (AUTO) 6.6 %; MEAN CORPUSCULAR HEMOGLOBIN 31.3 pg (27.0-31.0); MEAN CORPUSCULAR HGB CONC 33.2 g/dL (32.0-36.0); MEAN PLATELET VOLUME 10.4 fL (7.9-10.8); MONOCYTES % (AUTO) 5.7 %; NEUTROPHILS % (AUTO) 80.3 %; PLT - PLATELET COUNT 297 10^3/uL (130-450); RED BLOOD COUNT 3.68 10^6/uL (4.20-5.40); RED CELL DISTRIBUTION WIDTH 12.4 % (12.0-15.0); WHITE BLOOD COUNT 9.2 x10^3/uL (4.8-10.8)
[2019-03-09 05:14] LABS: ABNORMAL LYMPHS % (MANUAL) 0 %
[2019-03-09 05:21] LABS: ALBUMIN 2.5 g/dL (3.2-5.5); ALBUMIN/GLOBULIN RATIO 0.9 (1.0-2.2); BILIRUBIN,TOTAL 0.8 mg/dL (0.2-1.0); CALCIUM 7.8 mg/dL (8.5-10.3); CREATININE 0.4 mg/dL (0.4-1.0); TOTAL PROTEIN 5.4 g/dL (6.7-8.2)
[2019-03-09 05:39] LABS: BAND NEUTROPHILS % (MANUAL) 5 %; DIFFERENTIAL COMMENT MANUAL DIFFERENTIAL; LYMPHOCYTES # (MANUAL) 0.3 10^3/uL (1.5-3.5); LYMPHOCYTES % (MANUAL) 3 %; METAMYELOCYTES % (MANUAL) 2 %; MONOCYTES # (MANUAL) 0.3 10^3/uL (0.0-1.0); MYELOCYTES % (MANUAL) 2 %; PLATELET ESTIMATE, MANUAL NORMAL (130-450,000) (NORMAL); RBC MORPHOLOGY (MULTIPLE) NORMAL APPEARANCE (NORMAL)
[2019-03-09] MEDS: PANTOPRAZOLE 40 MG VIAL IVP SCH ×2 (05:53→05:56)
[2019-03-09] MEDS: PIPERACILLIN/TAZOBACTAM 4.5 GM in SODIUM CHLORIDE 0.9% MINIBAG 100 ML IV SCH ×2 (05:53→16:22)
[2019-03-09] MEDS: D5.45NS W/20 MEQ KCL 1,000 ML IV SCH ×2 (05:53→16:21)
[2019-03-09] MEDS: SODIUM CHLORIDE FLUSH 0.9% 10 ML SYRINGE IVP PRN (05:53)
[2019-03-09] MEDS ORDERED: POTASSIUM CHLORIDE 20 MEQ TABLET PO ONE (07:00)
[2019-03-09] MEDS: ENOXAPARIN 40 MG/0.4 ML SYRINGE SUBQ SCH (08:49)
[2019-03-09] MEDS ORDERED: ACETAMINOPHEN 1,000 MG/100 ML 100 ML IV SCH (11:00)
--- NOTE | 2019-03-09 12:24 | PROVIDER PROGRESS NOTE ---
Subjective - Prog Note Date Prog Note Date: 03/09/19 Prog Note Time: 12:21 - Subjective Pt reports feeling: Improved Subjective: NG out, has had BM, has flatus. Is eating a little. Current Medications - Current Medications Current Medications: Active Medications Benzocaine/Butamben/Tetracaine HCl (Cetacaine [place]) 1 sprays MM DAILY PRN PRN Reason: Throat Pain Enoxaparin Sodium (Lovenox) 40 mg SUBQ DAILY [facility] Last Admin: 03/09/19 08:49 Dose: 40 mg Hydromorphone HCl (Dilaudid Inj Syringe) 0.5 mg IVP Q1H PRN PRN Reason: PAIN Last Admin: 03/06/19 06:20 Dose: 0.5 mg Promethazine HCl 25 mg/ Sodium (Chloride) 51 mls @ 100 mls/hr IV Q6H PRN PRN Reason: Nausea / Vomiting Potassium Chloride/Dextrose/Sod Cl (D5.45ns W/20 Meq Kcl) 1,000 mls @ 100 mls/hr IV .Q10H [facility] Last Admin: 03/09/19 05:53 Dose: 100 mls/hr Acetaminophen (Ofirmev) 100 mls @ 400 mls/hr IV Q6H [facility] Last Infusion: 03/09/19 11:16 Dose: Infused Levofloxacin (Levaquin) 500 mg PO DAILY [facility] Ondansetron HCl (Zofran Inj) 4 mg IVP Q6HR PRN PRN Reason: Nausea / Vomiting Last Admin: 03/06/19 11:10 Dose: 4 mg Pantoprazole Sodium (Protonix) 40 mg IVP QDAC [facility] Last Admin: 03/09/19 05:56 Dose: Not Given Phenol/Menthol (Chloraseptic) 1 sprays MM Q2HR PRN PRN Reason: Throat Pain Prochlorperazine Edisylate (Compazine Inj) 10 mg IVP Q4HR PRN PRN Reason: Nausea / Vomiting Last Admin: 03/06/19 17:25 Dose: 10 mg Sodium Chloride (Normal Saline Flush 0.9%) 10 ml IVP 0100,0900,1700 [facility] Last Admin: 03/09/19 01:42 Dose: Not Given Sodium Chloride (Normal Saline Flush 0.9%) 10 ml IVP PRN PRN PRN Reason: NEEDED PER PROVIDER ORDERS Last Admin: 03/09/19 05:53 Dose: 10 ml Zolpidem Tartrate (Ambien) 5 mg PO QPM PRN PRN Reason: Insomnia Last Admin: 03/06/19 20:33 Dose: 5 mg Cholecalciferol (Vitamin D3) [Vitamin D] 2,000 unit PO DAILY 06/08/14 D-Mannose [Mannxtra] 1 tab PO UD 03/04/19 Multivitamin,Therapeutic [Thera] 1 each PO DAILY 03/04/19 Objective - Vital Signs/Intake & Output Reviewed Vital Signs: Yes Vital Signs: Vital Signs x48h Temp Pulse Resp BP Pulse Ox 03/09/19 07:38 36.9 C 86 23 165/78 H 95 Intake & Output: Intake & Output 03/06/19 03/07/19 03/08/19 03/09/19 23:59 23:59 23:59 23:59 Intake Total 3949.993 3500.000 4233.333 1143.333 Output Total 600 3800 1255 277 Balance 3349.993 -260.371 3421.333 866.333 - Objective General Appearance: positive: No acute distress, Alert Eyes Bilateral: positive: PERRL, EOMI ENT: positive: Pharynx nml Neck: positive: No JVD Respiratory: positive: Chest non-tender. negative: Wheezes, Rales, Rhonchi Cardiovascular: positive: Regular rate & rhythm. negative: Gallop/S4, Friction rub Abdomen: positive: Non-tender, No organomegaly, Nml bowel sounds Skin: positive: Warm, Dry Extremities: positive: Non-tender, Full ROM Neurologic/Psychiatric: positive: Oriented x3, CN's nml (2-12), Motor nml - Lab Results Fish Bones: 03/09/19 04:50 03/09/19 04:50 Other Labs: Lab Results x24hrs 03/09/19 03/09/19 Range/Units 04:50 04:50 WBC 9.2 (4.8-10.8) x10^3/uL RBC 3.68 L (4.20-5.40) 10^6/uL Hgb 11.5 L (12.0-16.0) g/dL Hct 34.6 L (37.0-47.0) % MCV 94.0 (81.0-99.0) fL MCH 31.3 H (27.0-31.0) pg MCHC 33.2 (32.0-36.0) g/dL RDW 12.4 (12.0-15.0) % Plt Count 297 (130-450) 10^3/uL MPV 10.4 (7.9-10.8) fL Neut # (Auto) Not Reportable Lymph # (Auto) Not Reportable [place] # (Auto) Not Reportable Eos # (Auto) Not Reportable Baso # (Auto) Not Reportable Absolute Nucleated RBC Not Reportable Total Counted 100 Band Neuts % (Manual) 5 (0 - 10) % Abnorm Lymph % (Manual) 0 % Metamyelocytes % 2 H ( - 0) % Myelocytes % 2 H ( - 0) % Nucleated RBC % Not Reportable Neutrophils # (Manual) 8.3 H (1.5-6.6) 10^3/uL Lymphocytes # (Manual) 0.3 L (1.5-3.5) 10^3/uL Monocytes # (Manual) 0.3 (0.0-1.0) 10^3/uL Eosinophils # (Manual) 0.0 (0-0.7) 10^3/uL Basophils # (Manual) 0.0 (0-0.1) 10^3/uL Differential Comment MANUAL DIFFERENTIAL Platelet Estimate NORMAL (130-450,000) (NORMAL) RBC Morph Micro Appear NORMAL APPEARANCE (NORMAL) Sodium 137 (135-145) mmol/L Potassium 3.4 L (3.5-5.0) mmol/L Chloride 106 (101-111) mmol/L Carbon Dioxide 23 (21-32) mmol/L Anion Gap 8.0 (6-13) BUN 14 (6-20) mg/dL Creatinine 0.4 (0.4-1.0) mg/dL Estimated GFR (MDRD) 156 (>89) Glucose 131 H (70-100) mg/dL Calcium 7.8 L (8.5-10.3) mg/dL Total Bilirubin 0.8 (0.2-1.0) mg/dL AST 78 H (10-42) IU/L ALT 78 H (10-60) IU/L Alkaline Phosphatase 86 (42-121) IU/L Total Protein 5.4 L (6.7-8.2) g/dL Albumin 2.5 L (3.2-5.5) g/dL Globulin 2.9 (2.1-4.2) g/dL Albumin/Globulin Ratio 0.9 L (1.0-2.2) Sepsis Event Note (H) - Evaluation Current Stage of Sepsis: Ruled out Assessment/Plan - Problem List (1) Small bowel obstruction Impression: 10 POD #5 Diet advanced. Home today? 10 POD #4 No new problems. Seen by surgery. NG out. Having BM. Diet to be advanced. 03/07 POD #3 pt present nausea and vomiting again. CT of abdomen reveals dilated small bowel, worrisome for recurrent obstruction. plan: NG tube continue IVF NPO followup surgeon 03/06 s/p surgery of Exploratory laparotomy and adhesiolysis day two. pt report she had bowel movement today but she report she feel lots of nausea without vomiting. unknown etiology of nausea. add phenergan and companzin PRN for nausea continue pain control and gently IVF add ambien PRN for her sleep 03/05 s/p surgery of Exploratory laparotomy and adhesiolysis day one followup surgeon's recommendation pain control encourage ambulation 03/04 although clinically pt had improved, reduced abdominal pain, no N/V now. but new CT of abdomen today morning reveals SBO surgeon knew the updated CT result continue NPO encourage ambulate IVF of D5 pain control continue NG tube now (2)pneumonia 03/09 Day #3 of Zosyn and vancomycin. Still not fever. No hypoxia. Her bandemia has resolved. Recommendation is deescalation when no cultures are (+) and pt is stable. Will stop IV abx and change to oral (levaquin for 3 days then stop) 03/08 Day #2 of zosyn and vancomycin. No fever. 98% on room air. 03/[address], and restless clinically, and required [address] reveals new right lower lobe pneumonia. after treatment, pt report she feel much better. Plan: pt had Zosyn and Vancomycin on last night, ordered by night provider. continue antibiotics supplement of O2 as needed blood culture is pending vital and tele monitor pt
[2019-03-09] MEDS: levoFLOXacin 250 MG TABLET PO SCH (13:16)
[2019-03-09] MEDS ORDERED: VANCOMYCIN INJ 1 GM in SODIUM CHLORIDE 0.9% 250 ML IV SCH (14:00)
[2019-03-09] MEDS ORDERED: D5.45NS W/20 MEQ KCL 1,000 ML IV SCH (16:06)
--- NOTE | 2019-03-09 16:10 | PROVIDER PROGRESS NOTE ---
Subjective - General Admit Date: 03/03/19 Procedure Date: 03/04/19 Post Op Days: 5 Procedure Performed: Exploratory laparotomy and adhesiolysis - Review of Systems Wound/Incisions: positive: Dressing dry and intact General: positive: No symptoms HEENT: positive: No symptoms Pulmonary: positive: No symptoms Cardiovascular: positive: No symptoms Gastrointestinal: positive: Abdominal pain (Incisional and decreased.), Other (Passing gas and having bowel movements.) Genitourinary: positive: No symptoms Musculoskeletal: positive: No symptoms Skin: positive: No symptoms Psychiatric: positive: No symptoms Objective - Patient Data Reviewed Vital Signs: Yes Vital Signs: Vital Signs x48h Temp Pulse Resp BP Pulse Ox 03/09/19 15:40 36.8 C 94 20 161/79 H 96 03/09/19 13:00 37.1 C 93 28 H 141/73 H 95 Intake & Output: Intake and Output Totals x24h 03/07/19 03/08/19 03/09/19 23:59 23:59 23:59 Intake Total 3500.000 4233.333 1163.333 Output Total 3800 1255 277 Balance -364.222 7027.333 886.333 - Lab Results Lab Results: 03/09/19 04:50 03/09/19 04:50 Other Lab Results: Lab Results x24hrs 03/09/19 03/09/19 Range/Units 04:50 04:50 WBC 9.2 (4.8-10.8) x10^3/uL RBC 3.68 L (4.20-5.40) 10^6/uL Hgb 11.5 L (12.0-16.0) g/dL Hct 34.6 L (37.0-47.0) % MCV 94.0 (81.0-99.0) fL MCH 31.3 H (27.0-31.0) pg MCHC 33.2 (32.0-36.0) g/dL RDW 12.4 (12.0-15.0) % Plt Count 297 (130-450) 10^3/uL MPV 10.4 (7.9-10.8) fL Neut # (Auto) Not Reportable Lymph # (Auto) Not Reportable [place] # (Auto) Not Reportable Eos # (Auto) Not Reportable Baso # (Auto) Not Reportable Absolute Nucleated RBC Not Reportable Total Counted 100 Band Neuts % (Manual) 5 (0 - 10) % Abnorm Lymph % (Manual) 0 % Metamyelocytes % 2 H ( - 0) % Myelocytes % 2 H ( - 0) % Nucleated RBC % Not Reportable Neutrophils # (Manual) 8.3 H (1.5-6.6) 10^3/uL Lymphocytes # (Manual) 0.3 L (1.5-3.5) 10^3/uL Monocytes # (Manual) 0.3 (0.0-1.0) 10^3/uL Eosinophils # (Manual) 0.0 (0-0.7) 10^3/uL Basophils # (Manual) 0.0 (0-0.1) 10^3/uL Differential Comment MANUAL DIFFERENTIAL Platelet Estimate NORMAL (130-450,000) (NORMAL) RBC Morph Micro Appear NORMAL APPEARANCE (NORMAL) Sodium 137 (135-145) mmol/L Potassium 3.4 L (3.5-5.0) mmol/L Chloride 106 (101-111) mmol/L Carbon Dioxide 23 (21-32) mmol/L Anion Gap 8.0 (6-13) BUN 14 (6-20) mg/dL Creatinine 0.4 (0.4-1.0) mg/dL Estimated GFR (MDRD) 156 (>89) Glucose 131 H (70-100) mg/dL Calcium 7.8 L (8.5-10.3) mg/dL Total Bilirubin 0.8 (0.2-1.0) mg/dL AST 78 H (10-42) IU/L ALT 78 H (10-60) IU/L Alkaline Phosphatase 86 (42-121) IU/L Total Protein 5.4 L (6.7-8.2) g/dL Albumin 2.5 L (3.2-5.5) g/dL Globulin 2.9 (2.1-4.2) g/dL Albumin/Globulin Ratio 0.9 L (1.0-2.2) - Imaging Results Radiology Imaging: positive: Final report received, Other (Discussed CT scan of chest and abdomen with patient at length - no intra-abdominal process found. Chest CT should be repeated in 3-6 months.) - Current Medications Current Medications: Current Medications Generic Name Dose Route Start Last Admin Trade Name Freq PRN Reason Stop Dose Admin Enoxaparin Sodium 40 mg 03/05/19 09:00 03/09/19 08:49 Lovenox SUBQ 40 mg DAILY [facility] Administration Hydromorphone HCl 0.5 mg 03/04/19 18:24 03/06/19 06:20 Dilaudid Inj Syringe IVP 0.5 mg Q1H PRN Administration PAIN Acetaminophen 100 mls @ 400 mls/hr 03/09/19 11:00 03/09/19 11:16 Ofirmev IV Infused Q6H [facility] Infusion Levofloxacin 500 mg 03/09/19 13:00 03/09/19 13:16 Levaquin PO 500 mg DAILY [facility] Administration Ondansetron HCl 4 mg 03/03/19 21:44 03/06/19 11:10 Zofran Inj IVP 4 mg Q6HR PRN Administration Nausea / Vomiting Prochlorperazine Edisylate 10 mg 03/06/19 16:07 03/06/19 17:25 Compazine Inj IVP 10 mg Q4HR PRN Administration Nausea / Vomiting Sodium Chloride 10 ml 03/05/19 01:00 03/09/19 13:42 Normal Saline Flush 0.9% IVP Not Given 0100,0900,1700 KRISTA Sodium Chloride 10 ml 03/04/19 18:17 03/09/19 05:53 Normal Saline Flush 0.9% IVP 10 ml PRN PRN Administration NEEDED PER PROVIDER ORDERS Zolpidem Tartrate 5 mg 03/06/19 16:08 03/06/19 20:33 Ambien PO 5 mg QPM PRN Administration Insomnia - Physical Exam Wound/Incisions: positive: Healing well General Appearance: positive: No acute distress Eyes Bilateral: positive: No lid inflammation, Conjunctivae nml, No scleral icterus ENT: positive: No signs of dehydration Neck: positive: Trachea midline Respiratory: positive: Chest non-tender Cardiovascular: positive: Regular rate & rhythm Abdomen: positive: Other (Decreased distention and improved bowel sounds.) Skin: positive: Color nml Extremities: positive: Non-tender, Nml appearance Neurologic/Psychiatric: positive: Oriented x3, Motor nml, Sensation nml, Mo od/affect nml ABX Reporting Has patient been on IV antibiotics over the past 48 hours?: Yes Impression/Plan - Problem List Problem List: D5 s/p adhesiolysis The white blood cell count is lower as is the bandemia. Dr. Chau switched the patient over to oral antibiotics today. The patient has been started on a regular diet but she is still very cautious about eating. The CT scan was revi ewed with her at length indicating some scarring in the right upper lobe that should be followed up in 3 to [address] scan. There still is a question of pneumonia versus atelectasis at the lung bases but this is being treated as though it is a pneumonia. Notably, the patient is asymptomatic. There has been no hypoxia. There is been no fever. There is been no sputum. A note was given to the patient regarding her planned trip to [place] (a cruise of the [facility]). If she continues to improve overnight then I expect discharge in the morning. Nicolás disclaimer: This document was created in part using voice recognition technology. Because of the inherent limitations of the system ([employer]'s [employer] Dict[employer] user manual states that the licensee understands that speech recognition is a statistical process and that recognition errors are inherent in the process), occasional same sounding word substitutions and grammatical errors do occur and persist despite proofreading. Please read this document for context.
[2019-03-09] MEDS ORDERED: ACETAMINOPHEN 500 MG TABLET PO PRN (16:14)
[2019-03-10] MEDS: SODIUM CHLORIDE FLUSH 0.9% 10 ML SYRINGE IVP SCH ×2 (00:05→08:20)
[2019-03-10 05:55] LABS: BASOPHILS % (AUTO) 0.8 %; EOSINOPHILS % (AUTO) 1.1 %; HGB - HEMOGLOBIN 11.3 g/dL (12.0-16.0); LYMPHOCYTES % (AUTO) 14.1 %; MEAN CORPUSCULAR HEMOGLOBIN 29.7 pg (27.0-31.0); MEAN CORPUSCULAR HGB CONC 32.5 g/dL (32.0-36.0); MEAN CORPUSCULAR VOLUME 91.6 fL (81.0-99.0); MEAN PLATELET VOLUME 9.6 fL (7.9-10.8); MONOCYTES % (AUTO) 10.5 %; NEUTROPHILS % (AUTO) 65.5 %; PLT - PLATELET COUNT 316 10^3/uL (130-450); RED CELL DISTRIBUTION WIDTH 12.4 % (12.0-15.0); WHITE BLOOD COUNT 7.6 x10^3/uL (4.8-10.8)
[2019-03-10 06:06] LABS: ABNORMAL LYMPHS % (MANUAL) 0 %; BAND NEUTROPHILS % (MANUAL) 0 %
[2019-03-10 06:10] LABS: ALBUMIN 2.6 g/dL (3.2-5.5); ALBUMIN/GLOBULIN RATIO 0.9 (1.0-2.2); BILIRUBIN,TOTAL 1.1 mg/dL (0.2-1.0); CALCIUM 8.1 mg/dL (8.5-10.3); CREATININE 0.5 mg/dL (0.4-1.0); TOTAL PROTEIN 5.6 g/dL (6.7-8.2)
[2019-03-10 06:23] LABS: EOSINOPHILS # (MANUAL) 0.2 10^3/uL (0-0.7); LYMPHOCYTES # (MANUAL) 1.3 10^3/uL (1.5-3.5); LYMPHOCYTES % (MANUAL) 17 %; MONOCYTES # (MANUAL) 0.6 10^3/uL (0.0-1.0); MYELOCYTES % (MANUAL) 3 %
[2019-03-10 06:24] LABS: DIFFERENTIAL COMMENT MANUAL DIFFERENTIAL; PLATELET ESTIMATE, MANUAL NORMAL (130-450,000) (NORMAL); PLATELET MORPHOLOGY NORMAL APPEARANCE (NORMAL); RBC MORPHOLOGY (MULTIPLE) NORMAL APPEARANCE (NORMAL)
[2019-03-10] MEDS ORDERED: POTASSIUM CHLORIDE 20 MEQ TABLET PO ONE (06:42)
[2019-03-10] MEDS ORDERED: PANTOPRAZOLE 40 MG TABLET PO SCH ×2 (07:00)
[2019-03-10] MEDS: ENOXAPARIN 40 MG/0.4 ML SYRINGE SUBQ SCH (08:19)
[2019-03-10] MEDS: POTASSIUM CHLOR 10 MEQ/100 ML 10 MEQ/100 ML BAG IV SCH ×2 (08:19→09:28)
[2019-03-10] MEDS: levoFLOXacin 250 MG TABLET PO SCH (08:20)
[2019-03-10 09:32] VITALS: BP 161/76
--- NOTE | 2019-03-10 10:37 | DISCHARGE SUMMARY ---
"Discharge Summary Admit Date: 03/03/19 Discharge Date: 03/10/19 Discharging Provider: Adam Fletcher MD Primary Care Provider: Shekhar Davila MD Code Status: Attempt Resuscitation Condition at Discharge: Good Discharge Disposition: 01 Home, Self Care - DIAGNOSES Admission Diagnoses: Adhesive small bowel obstruction Discharge Diagnoses with Status of Each Condition: SBO resolved surgically Meckels diverticulum still present and does not require intervention Pneumonia resolving - HPI History of Present Illness: 73 year old female with a history of a subtotal colectomy in the presented with a complete SBO that did not respond to a oral contrast challenge. I operated on March 04, lysing the adhesive bands and returning the bowel to continuity. Postoperatively a bandemia started a search for the source and we (Hospitalist and I) landed on pneumonia as a source eventhough the patient was not febrile, hypoxic, productive of sputum, or coughing/short of breath. Treated with antibiotics the bandemia resolved. The patient is eating and tolerating general diet. - CONSULTS | PROCEDURES Consultations: General surgery Procedures: Exploratory laparotomy and adhesiolysis 03/04/2019 ([facility]) - HOSPITAL COURSE Hospital Course: See above. - ALLERGIES Allergies/Adverse Reactions: Allergies Allergy/AdvReac Type Severity Reaction Status Date / Time No Known Drug Allergies Allergy Verified 06/08/14 09:28 - MEDICATIONS Home Medications: Ambulatory Orders Medication Instructions Recorded Confirmed Cholecalciferol (Vitamin D3) 2,000 unit PO DAILY 06/08/14 03/04/19 [Vitamin D] D-Mannose [Mannxtra] 1 tab PO UD 03/04/19 03/04/19 Multivitamin,Therapeutic [Thera] 1 each PO DAILY 03/04/19 03/04/19 Home Medications Other | Comments: Levaquin 500 mg tab po daily for 2 days No pain medication needed per patient Unlikely to require antinausea medication - PHYSICAL EXAM AT DISCHARGE General Appearance: positive: No acute distress Eyes Bilateral: positive: No lid inflammation, Conjunctivae nml, No scleral icterus ENT: positive: No signs of dehydration Neck: positive: Trachea midline Respiratory: positive: Chest non-tender, No respiratory distress, Other (VERY mild crackles at base.) Cardiovascular: positive: Regular rate & rhythm Abdomen: positive: Non-tender, Nml bowel sounds, No distention Skin: positive: Color nml Extremities: positive: Non-tender, Nml appearance Neurologic/Psychiatric: positive: Oriented x3, Motor nml, Sensation nml, Mood/affect nml - LABS Result Diagrams: 03/10/19 05:31 03/10/19 05:31 - SEPSIS Current Stage of Sepsis: Ruled out Sepsis Criteria: WBC count greater than 10% bands - QUALITY (Female Hip Fx Only) Was patient sent home on osteoporosis medication?: No - FOLLOW UP Follow Up: Adam Fletcher in 7-10 days - TIME SPENT Time Spent in Discharge (Minutes): 45"
--- NOTE | 2019-03-10 10:50 | Discharge Plan ---
Discharge Plan Problem Reviewed?: Yes Disposition: Home, Self Care Condition: Good Prescriptions: levoFLOXacin [Levaquin] 500 mg PO DAILY #2 tablet Diet: Regular Activity Restrictions: No lifting >15 pounds for 6 weeks. Shower Restrictions: No Driving Restrictions: Yes Weight Bearing: Full Weight No Smoking: If you smoke, Please STOP! Call for help. Follow-up with: Shekhar Davila MD [Primary Care Provider] - Adam Fletcher MD [Provider Admit Priv/Credential] -
== END 2019-03-10 12:58 | disposition home or self-care (01) | DRG 335 ==
LOC: ED 18:09 → MS2 21:44
PROVIDERS: ADMIT Internal Medicine; ATTEND Surgery
PROC: 0DNB0ZZ Release Ileum, Open Approach (ICD-10-PCS; principal; 2019-03-04 16:30)
DX: K56.50 Intestinal adhesions [bands], unspecified as to partial versus complete obstruction (principal); K56.52 Intestinal adhesions [bands] with complete obstruction; J18.9 Pneumonia, unspecified organism; K50.90 Crohn's disease, unspecified, without complications; R18.8 Other ascites; J98.4 Other disorders of lung; Q43.0 Meckel's diverticulum (displaced) (hypertrophic); Z90.49 Acquired absence of other specified parts of digestive tract; Z86.010 Personal history of colon polyps; Z87.442 Personal history of urinary calculi
CPT/HCPCS: 36415; 71045; 71260; 74019; 74177; 80048; 80053; 81003; 83605; 83690; 83735; 84484; 85025; 87040; 93005; 96361; 96374; 99285; 99291; A9270; J0131; J1170; J1650; J3010; J3370; J7120; Q9967; 80202; 81001; 87086

== ENCOUNTER 2019-03-11 08:56 | Outpatient (CLI) | payer MEDICARE | END 2019-03-11 08:57 | disposition critical access hospital (66) | LOC: EMS 08:56 | PROVIDERS: ATTEND Surgery | DX: R07.81 Pleurodynia (principal); R07.9 Chest pain, unspecified | CPT/HCPCS: A0425; A0427 ==

== ENCOUNTER 2019-03-11 09:29 | Emergency (ER) | payer MEDICARE ==
--- NOTE | 2019-03-11 09:51 | ED Physician Documentation ---
PD HPI ABD PAIN - Stated complaint Stated Complaint: POST OP PAIN - Chief complaint Chief Complaint: Abd Pain - History obtained from History obtained from: Patient PD PAST MEDICAL HISTORY - Past Medical History Cardiovascular: None Respiratory: None Endocrine/Autoimmune: None GI: Colon polyps, Chronic diarrhea, Crohn's disease : Kidney stones HEENT: Dental implants Psych: None Musculoskeletal: Osteoarthritis, Gout Derm: Eczema - Past Surgical History General: Bowel surgery (partial colectomy), Colonoscopy HEENT: Tonsil/Adenoidectomy Derm: Skin cancer surgery - Present Medications Home Medications: Ambulatory Orders Medication Instructions Recorded Confirmed Cholecalciferol (Vitamin D3) 2,000 unit PO DAILY 06/08/14 03/04/19 [Vitamin D3] D-Mannose [Mannxtra] 1 tab PO UD 03/04/19 03/04/19 Multivitamin,Therapeutic [Thera] 1 each PO DAILY 03/04/19 03/04/19 levoFLOXacin [Levaquin] 500 mg PO DAILY #2 tablet 03/10/19 - Allergies Allergies/Adverse Reactions: Allergies Allergy/AdvReac Type Severity Reaction Status Date / Time No Known Drug Allergies Allergy Verified 03/11/19 09:39 - Social History Does the pt smoke?: No Smoking Status: Never smoker - POLST Patient has POLST: No POLST Status: Full Code Results - Vitals Vitals: Vital Signs - 24 hr 03/11/19 09:35 Temperature 36.7 C Heart Rate 103 H Respiratory 17 Rate Blood Pressure 161/79 H O2 Saturation 95 Oxygen O2 Source Room air
--- NOTE | 2019-03-11 10:08 | ED Physician Documentation ---
PD HPI CHEST PAIN - Stated complaint Stated Complaint: POST OP PAIN - Chief complaint Chief Complaint: Abd Pain - History obtained from History obtained from: Patient, Family, EMS - History of Present Illness Timing - onset: Yesterday (patient having pain right lateral chest, worse with breathing. Had been in hospital for SBO with surgery mar 04, and is healing well from that. Had some dyspnea in hospital and CXR showing possible pneumonia, then CT chest with pneumonia vs atelectasis. Was on IV abs and d/c yesterday with Rx for Levaquin, but pharmacy had not filled it yet, to case picker today. Patient with worse dyspnea and right chest pain today.) Timing - onset during: Light activity (she was hurting more as more up and around since discharge yesterday.) Timing - duration: Days (1-2) Timing - details: Gradual onset, Still present, Waxing and waning Quality: Aching, Sharp, Pain Location: Right chest Radiation: No: Back, Abdominal Improved by: Rest Worsened by: Exertion, Inspiration. No: Eating, Palpation Associated symptoms: Shortness of air. No: Diaphoresis, Nausea, Feeling faint / dizzy Similar symptoms before: Has not had sx before Recently seen: Admitted, Surgery Review of Systems Constitutional: denies: Fever, Chills, Myalgias Nose: denies: Rhinorrhea / runny nose, Congestion Throat: denies: Sore throat Cardiac: reports: Chest pain / pressure. denies: Palpitations, Pedal edema, Calf pain Respiratory: reports: Dyspnea. denies: Cough, Wheezing GI: denies: Abdominal Pain (she says her abd is feeling good with little pain, having increased diet and has had regular BM earlier today.), Abdominal Swelling, Nausea, Vomiting, Diarrhea : denies: Dysuria, Frequency Skin: denies: Rash, Lesions PD PAST MEDICAL HISTORY - Past Medical History Cardiovascular: None Respiratory: None Endocrine/Autoimmune: None GI: Colon polyps, Chronic diarrhea, Crohn's disease : Kidney stones HEENT: Dental implants Psych: None Musculoskeletal: Osteoarthritis, Gout Derm: Eczema - Past Surgical History General: Bowel surgery (partial colectomy), Colonoscopy HEENT: Tonsil/Adenoidectomy Derm: Skin cancer surgery - Present Medications Home Medications: Ambulatory Orders Medication Instructions Recorded Confirmed Cholecalciferol (Vitamin D3) 2,000 unit PO DAILY 06/08/14 03/04/19 [Vitamin D3] D-Mannose [Mannxtra] 1 tab PO UD 03/04/19 03/04/19 Multivitamin,Therapeutic [Thera] 1 each PO DAILY 03/04/19 03/04/19 levoFLOXacin [Levaquin] 500 mg PO DAILY #2 tablet 03/10/19 Albuterol Sulf [Ventolin Hfa 1 - 2 puffs INH Q4HR PRN #1 inhaler 03/11/19 Inhaler] Hydrocodone/Acetaminophen [Clinton 1 each PO Q6H PRN #20 tablet 03/11/19 5-325 Tablet] Naproxen 375 mg PO BID #20 tablet 03/11/19 - Allergies Allergies/Adverse Reactions: Allergies Allergy/AdvReac Type Severity Reaction Status Date / Time No Known Drug Allergies Allergy Verified 03/11/19 09:39 - Social History Does the pt smoke?: No Smoking Status: Never smoker - POLST Patient has POLST: No POLST Status: Full Code PD ED PE NORMAL - Vitals Vital signs reviewed: Yes - General General: Alert and oriented X 3, Well developed/nourished, Other (does seem uncomfortable with moderate to deep breathing. ) - HEENT HEENT: Pharynx benign - Neck Neck: Supple, no meningeal sign, No adenopathy, No JVD - Cardiac Cardiac: RRR, No murmur - Respiratory Respiratory: No respiratory distress. No: Clear bilaterally (some mild coarse sounds right base. ) - Abdomen Abdomen: Soft, Non tender, Non distended, Other (healing surgical scar midline lower abd without signs of infection and minimally tender. Bowel sounds present. ) - Back Back: No CVA TTP - Derm Derm: Normal color, Warm and dry - Extremities Extremities: No deformity, No tenderness to palpate, No edema, No calf tenderness / cord - Neuro Neuro: Alert and oriented X 3, No motor deficit, Normal speech Results - Vitals Vitals: Vital Signs - 24 hr 03/11/19 03/11/19 03/11/19 09:35 09:57 10:10 Temperature 36.7 C Heart Rate 103 H 99 97 Respiratory 17 20 26 H Rate Blood Pressure 161/79 H 159/82 H 160/75 H O2 Saturation 95 95 94 03/11/19 03/11/19 03/11/19 11:19 12:46 13:25 Temperature Heart Rate 89 90 88 Respiratory 16 18 16 Rate Blood Pressure 149/66 H 143/70 H O2 Saturation 97 97 03/11/19 14:00 Temperature Heart Rate 102 H Respiratory 18 Rate Blood Pressure 141/63 H O2 Saturation 93 Oxygen O2 Source Room air - Labs Labs: Laboratory Tests 03/11/19 03/11/19 03/11/19 10:27 10:27 10:27 WBC 15.3 H RBC 3.86 L Hgb 11.6 L Hct 36.2 L MCV 93.8 MCH 30.1 MCHC 32.0 RDW 12.3 Plt Count 354 MPV 9.6 Neut # (Auto) 12.7 H Lymph # (Auto) 0.8 L Bennett # (Auto) 1.1 H Eos # (Auto) 0.0 Baso # (Auto) 0.1 Absolute Nucleated RBC 0.00 Nucleated RBC % 0.0 Manual Slide Review Indicated Sodium 135 Potassium 3.1 L Chloride 100 L Carbon Dioxide 21 Anion Gap 14.0 H BUN 6 Creatinine 0.4 Estimated GFR (MDRD) 156 Glucose 122 H Calcium 7.9 L Total Bilirubin 1.1 H AST 48 H ALT 61 H Alkaline Phosphatase 135 H B-Natriuretic Peptide 88 Total Protein 5.5 L Albumin 2.6 L Globulin 2.9 Albumin/Globulin Ratio 0.9 L Lipase 100 H - Rads (name of study) chest angio Radiology: Prelim report reviewed (no PE. Atelectatic changes right base, small effusion. ), See rad report PD MEDICAL DECISION MAKING - ED course Complexity details: reviewed old records, reviewed results, re-evaluated patient (improved with IV meds. ), considered differential (pain right chest likely mostly from pleurisy and atelectasis. Consider pneumonia as well. Need to exclude PE. ), d/w patient Departure - Departure Disposition: 01 Home, Self Care Clinical Impression: Atelectasis of right lung Chest pain Qualifiers: Chest pain type: chest pain on breathing Qualified Code(s): R07.1 - Chest pain on breathing Pneumonia Qualifiers: Pneumonia type: due to unspecified organism Laterality: right Lung location: lower lobe of lung Qualified Code(s): J18.1 - Lobar pneumonia, unspecified organism Condition: Stable Record reviewed to determine appropriate education?: Yes Instructions: ED Atelectasis Follow-Up: Shekhar Davila MD [Primary Care Provider] - Adam Fletcher MD [Provider Admit Priv/Credential] - Prescriptions: Albuterol Sulf [Ventolin Hfa Inhaler] 1 - 2 puffs INH Q4HR PRN #1 inhaler PRN Reason: Shortness Of Air/Wheezing Hydrocodone/Acetaminophen [Clinton 5-325 Tablet] 1 each PO Q6H PRN #20 tablet PRN Reason: Pain Naproxen 375 mg PO BID #20 tablet Comments: No signs of blood clots on your CT scan. The previous changes in the right lower lung are still present. It looks like atelectasis which is a small collapse of the lung because of improper aeration.. It is possible there could be some pneumonia in the area as well. Both of these can give you local inflammation and irritation and be causing the pain in the area. Take the previously prescribed antibiotic from when you are discharged. Take that daily as directed. Add to that naproxen anti-inflammatory twice daily and also an albuterol inhaler 2 puffs 3-4 times a day to help improve aeration. Continue the incentive spirometer you have been discharged with at home. Add Tylenol or hydrocodone as needed for pains so that you are able to breathe well and move comfortably to help improve the process. Recheck if not improving well over the next couple days. Follow-up with your primary care in the next few days, call for an appointment. Discharge Date/Time: 03/11/19 15:06
[2019-03-11] MEDS ORDERED: SODIUM CHLORIDE 0.9% 1,000 ML IV ONE (10:10)
[2019-03-11] MEDS ORDERED: MORPHINE 10 MG/ML VIAL IVP STA (10:10)
[2019-03-11] MEDS: KETOROLAC 30 MG/ML VIAL IVP STA (10:22)
[2019-03-11 10:34] LABS: BASOPHILS # (AUTO) 0.1 10^3/uL (0.0-0.1); BASOPHILS % (AUTO) 0.5 %; EOSINOPHILS % (AUTO) 0.1 %; HGB - HEMOGLOBIN 11.6 g/dL (12.0-16.0); LYMPHOCYTES # (AUTO) 0.8 10^3/uL (1.5-3.5); LYMPHOCYTES % (AUTO) 5.5 %; MEAN CORPUSCULAR HEMOGLOBIN 30.1 pg (27.0-31.0); MEAN CORPUSCULAR VOLUME 93.8 fL (81.0-99.0); MEAN PLATELET VOLUME 9.6 fL (7.9-10.8); MONOCYTES # (AUTO) 1.1 10^3/uL (0.0-1.0); MONOCYTES % (AUTO) 7.1 %; NEUTROPHILS # (AUTO) 12.7 10^3/uL (1.5-6.6); PLT - PLATELET COUNT 354 10^3/uL (130-450); RED BLOOD COUNT 3.86 10^6/uL (4.20-5.40); RED CELL DISTRIBUTION WIDTH 12.3 % (12.0-15.0); WHITE BLOOD COUNT 15.3 x10^3/uL (4.8-10.8)
[2019-03-11] MEDS ORDERED: IOVERSOL 320 100 ML VIAL IVP ONE ×2 (10:39→13:36)
[2019-03-11 10:47] LABS: ALBUMIN 2.6 g/dL (3.2-5.5); ALBUMIN/GLOBULIN RATIO 0.9 (1.0-2.2); BILIRUBIN,TOTAL 1.1 mg/dL (0.2-1.0); CALCIUM 7.9 mg/dL (8.5-10.3); CREATININE 0.4 mg/dL (0.4-1.0); TOTAL PROTEIN 5.5 g/dL (6.7-8.2)
[2019-03-11] MEDS ORDERED: levoFLOXacin 500 MG/100 ML 500 MG/100 ML BAG IV ONE (11:36)
--- NOTE | 2019-03-11 12:30 | CT Report ---
Reason: right lower chest pain, post op abd surgery Procedure Date: 03/11/2019 Accession Number: [id number] / [id number] Procedure: CT - ANGIO CHEST W/WO CPT Code: FULL RESULT: EXAM: CT ANGIOGRAM CHEST EXAM DATE: 03/11/2019 11:52 AM. CLINICAL HISTORY: Right lower chest pain, postop abdominal surgery. COMPARISON: CHEST W/ 03/08/2019 2:33 PM. TECHNIQUE: Routine helical imaging was performed through the chest in the pulmonary arterial phase. IV Contrast: 60 mL OPTI 320. Reconstructions: Coronal 3-D MIP reconstructions.Sagittal and coronal. In accordance with CT protocol optimization, one or more of the following dose reduction techniques were utilized for this exam: automated exposure control, adjustment of mA and/or KV based on patient size, or use of iterative reconstructive technique. FINDINGS: Pulmonary Arteries: Diagnostic quality: Adequate through the segmental arteries. No evidence for acute or chronic pulmonary emboli. RV/LV is within normal limits. There is no interventricular septal bowing. There is no reflux of contrast material in the IVC. Lungs/Pleura: There is a large right-sided pleural effusion, increased in volume slightly since the comparison exam. There is now complete atelectasis of the right lower lobe; no evidence of associated bronchial obstruction, therefore consistent with passive atelectasis. Milder atelectasis is noted in the adjacent right upper lobe and portions of the middle lobe. Small left effusion is unchanged with adjacent passive atelectasis in the left lower lobe. No confluent airspace opacities within the aerated portions of the lung. No extra ventilatory air. Mediastinum: Main pulmonary artery segment, right and left main pulmonary artery diameters are upper normal. No mediastinal mass or adenopathy. Thoracic Aorta: Unremarkable. Upper Abdomen: Stable fluid density 2 cm probable cyst of the left lobe of liver. Other: None. IMPRESSION: 1. No evidence of acute pulmonary embolus. 2. Mild interval worsening in right-sided effusion with right lower lobe passive atelectasis. 3. Stable small left effusion with milder associated atelectasis. RADIA
[2019-03-11] MEDS ORDERED: DEXAMETHASONE 10 MG/ML VIAL IVP STA (12:58)
[2019-03-11] MEDS ORDERED: ALBUTEROL NEB 2.5 MG/3 ML INH STA (12:59)
[2019-03-11 14:23] VITALS: BP 141/63
== END 2019-03-11 15:06 | disposition home or self-care (01) ==
LOC: EDUNIT# → ED 09:29
DX: J98.11 Atelectasis (principal); J18.9 Pneumonia, unspecified organism; R07.1 Chest pain on breathing; Z90.49 Acquired absence of other specified parts of digestive tract; Z87.19 Personal history of other diseases of the digestive system
CPT/HCPCS: 36415; 71275; 80053; 83690; 83880; 85025; 94640; 96361; 96365; 96375; 99284; 99285; Q9967

== ENCOUNTER 2019-03-19 16:57 | Outpatient (CLI) | payer MEDICARE ==
[2019-03-19] MEDS ORDERED: IOVERSOL 320 100 ML VIAL IVP ONE ×2 (17:11→17:52)
--- NOTE | 2019-03-19 18:37 | CT Report ---
Reason: DECREASED BREATH SOUNDS RIGHT, RIGHT PLEURAL EFFUSION Procedure Date: 03/19/2019 Accession Number: [id number] / [id number] Procedure: CT - ANGIO CHEST W/WO CPT Code: FULL RESULT: EXAM: CT ANGIOGRAM CHEST EXAM DATE: 03/19/2019 05:36 PM. CLINICAL HISTORY: DECREASED BREATH SOUNDS RIGHT, RIGHT PLEURAL EFFUSION. COMPARISON: CHEST ANGIO 03/11/2019 11:48 AM. TECHNIQUE: Routine helical imaging was performed through the chest in the pulmonary arterial phase. IV Contrast: OPTI 320 80ML. Reconstructions: Coronal 3-D MIP reconstructions.Sagittal and coronal. In accordance with CT protocol optimization, one or more of the following dose reduction techniques were utilized for this exam: automated exposure control, adjustment of mA and/or KV based on patient size, or use of iterative reconstructive technique. FINDINGS: Pulmonary Arteries: Diagnostic quality: Adequate through the mid segmental arteries. No evidence for acute or chronic pulmonary emboli. RV/LV is within normal limits. There is no interventricular septal bowing. There is no reflux of contrast material in the IVC. Lungs/Pleura: There is a large, complex right pleural effusion. Interval increase in volume. There is right compressive atelectasis. There is a small to moderate sized left pleural effusion. No evidence of pneumothorax. Mediastinum: Heart size is within normal limits. There are no enlarged axillary, supraclavicular, mediastinal, or hilar lymph nodes. Thoracic Aorta: Unremarkable. Upper Abdomen: No acute abnormalities are seen. There are several hypodensities within the liver which could represent cysts. Other: None. IMPRESSION: 1. There is a large right pleural effusion. Interval increase in volume. 2. There is right compressive atelectasis. 3. There is a relatively stable, small to moderate sized left pleural effusion. 4. No evidence of acute pulmonary embolism. 5. There is no evidence of aortic dissection or aneurysm. RADIA The call report notification system was initiated by Dr. Ed De La Garza at 06:36 PM on 03/19/2019. ADDENDUM: 03/19/19 18:57 Findings of the study called to the covering physician at 6:36 PM. ADDENDUM: 03/19/19 21:54
== END 2019-03-19 16:58 | disposition home or self-care (01) ==
LOC: DI 16:57
PROVIDERS: ATTEND Surgery
DX: J90 Pleural effusion, not elsewhere classified (principal); J98.11 Atelectasis
CPT/HCPCS: 71275; Q9967

== ENCOUNTER 2019-04-03 14:20 | Outpatient (CLI) | payer MEDICARE ==
--- NOTE | 2019-04-03 16:14 | XRAY Report ---
Reason: RIGHT PLEURAL EFFUSION, J90 Procedure Date: 04/03/2019 Accession Number: [id number] / [id number] Procedure: XRS - Chest 2 View X-Ray CPT Code: 87312 Final Report FULL RESULT: EXAM: CHEST RADIOGRAPHY EXAM DATE: 04/03/2019 02:30 PM. CLINICAL HISTORY: Right pleural effusion. COMPARISON: CHEST 1 VIEW 03/07/2019 10:53 PM. TECHNIQUE: 2 views. FINDINGS: Lungs/Pleura: Moderate right pleural effusion with volume loss and haziness in the middle lobe and lower lobe. Otherwise no focal opacities evident. No left pleural effusion. No pneumothorax. Hyperinflation. Mediastinum: Heart and mediastinal contours are unremarkable. Other: No compression fractures. IMPRESSION: Moderate right pleural effusion with volume loss and atelectasis/infiltrate in the middle lobe and lower lobe. RADIA
== END 2019-04-03 14:21 | disposition home or self-care (01) ==
LOC: DI.S 14:20
PROVIDERS: ATTEND Internal Medicine
DX: J90 Pleural effusion, not elsewhere classified (principal)
CPT/HCPCS: 71046

== ENCOUNTER 2019-12-08 10:55 | Outpatient (CLI) | payer MEDICARE | END 2019-12-08 10:56 | disposition home or self-care (01) | LOC: LAB 10:55 | PROVIDERS: ATTEND Internal Medicine Critical Care Medicine | DX: Z11.59 Encounter for screening for other viral diseases (principal) | CPT/HCPCS: 81599 ==

== ENCOUNTER 2020-06-17 10:17 | Emergency (ER) | payer MEDICARE ==
--- NOTE | 2020-06-17 11:37 | XRAY Report ---
PROCEDURE: Shoulder 3 View RT INDICATIONS: GLF rt shoulder pain TECHNIQUE: 3 views of the shoulder were acquired. COMPARISON: None. FINDINGS: Bones: Acute minimally displaced fracture through base of greater tuberosity is seen with up to 2 mm diastases at fracture site. No other fracture or dislocation. Mild acromioclavicular joint and glenoh umeral joint osteoarthritic changes are seen. No suspicious bony lesions. Visualized ribs appear int act. Soft tissues: No suspicious soft tissue calcifications. IMPRESSION: Minimally displaced fracture involving base of greater tuberosity as above. Shoulder jocelyn nt osteoarthritis. No other fracture or dislocation. Reviewed by: Talib Abreu MD on 06/17/2020 11:36 AM PST Approved by: Talib Abreu MD on 06/17/2020 11:36 AM PST Station ID: [id number]
--- NOTE | 2020-06-17 11:47 | ED Physician Documentation ---
PD HPI UPPER EXT INJURY - Stated complaint Stated Complaint: RT SHOULDER PX/GLF - Chief complaint Chief Complaint: Ext Problem - History obtained from History obtained from: Patient - History of Present Illness Location: Right, Shoulder Type of injury: Fall Where injury occurred: Home Timing - onset: Yesterday Pain level max: 5 Pain level now: 3 Improved by: Rest Worsened by: Moving, Palpating Associated symptoms: No: Weakness, Numbness, Tingling, Swelling Contributing factors: No: Anticoagulated Recently seen: Not recently seen - Additonal information Additional information: Patient is a 74-year-old female who suffered a ground-level fall yesterday at home. Landed on her right knee. States her right shoulder has been hurting today. Worse with movement, better with rest. Did not strike her head. No neck or back pain. No loss of consciousness. No vomiting. No numbness or tingling. Review of Systems Constitutional: denies: Fever, Chills Respiratory: denies: Cough GI: denies: Nausea, Vomiting, Diarrhea Skin: denies: Rash Musculoskeletal: denies: Neck pain, Back pain Neurologic: denies: Headache PD PAST MEDICAL HISTORY - Past Medical History Past Medical History: Yes Cardiovascular: None Respiratory: None Neuro: None Endocrine/Autoimmune: None GI: Colon polyps, Chronic diarrhea, Crohn's disease FIELD MARKETER: None : Kidney stones HEENT: Dental implants Psych: None Musculoskeletal: Osteoarthritis, Gout Derm: Eczema - Past Surgical History Past Surgical History: Yes General: Bowel surgery, Colonoscopy HEENT: Tonsil/Adenoidectomy Derm: Skin cancer surgery - Present Medications Home Medications: Ambulatory Orders Medication Instructions Recorded Confirmed No Known Home Medications 06/17/20 06/17/20 - Allergies Allergies/Adverse Reactions: Allergies Allergy/AdvReac Type Severity Reaction Status Date / Time No Known Drug Allergies Allergy Verified 06/17/20 10:20 - Social History Does the pt smoke?: No Smoking Status: Never smoker Does the pt drink ETOH?: Yes Does the pt have substance abuse?: No - Immunizations Immunizations are current?: Yes - POLST Patient has POLST: No POLST Status: Full Code PD ED PE NORMAL - Vitals Vital signs reviewed: Yes - General General: Alert and oriented X 3, No acute distress - HEENT HEENT: PERRL, Moist mucous membranes - Neck Neck: Supple, no meningeal sign, No bony TTP - Cardiac Cardiac: RRR - Respiratory Respiratory: No respiratory distress, Clear bilaterally - Derm Derm: Warm and dry - Extremities Extremities: Other (R shoulder - TTP over the glenohumeral joint. NVI including axillary nerve. Ecchymosis over the R proximal arm. ) - Neuro Neuro: Alert and oriented X 3 - Psych Psych: Normal mood, Normal affect Results - Vitals Vitals: Vital Signs - 24 hr 06/17/20 06/17/20 10:23 12:06 Temperature 36.9 C Heart Rate 85 78 Respiratory 18 18 Rate Blood Pressure 164/83 H 153/75 H O2 Saturation 99 100 Oxygen O2 Source Room air - Rads (name of study) R humerus Radiology: Prelim report reviewed, EMP read contemporaneously, See rad report (Minimally displaced fracture involving base of greater tuberosity as above. Shoulder joint osteoarthritis. No other fracture or dislocation. ) PD MEDICAL DECISION MAKING - ED course Complexity details: reviewed results, re-evaluated patient, considered differential, d/w patient ED course: 74-year-old female presents to the emergency department after a fall. Has a minimally displaced fracture involving the base of the greater tuberosity of the right shoulder. Placed in a sling. Declines pain medication here and for home. Neurovascular intact. No head injury. No neck or back pain. Patient counse led regarding signs and symptoms for which I believe and urgent re-evaluation would be necessary. Patient with good understanding of and agreement to plan and is comfortable going home at this time This document was made in part using voice recognition software. While efforts are made to proofread this document, sound alike and grammatical errors may occur. Departure - Departure Disposition: 01 Home, Self Care Clinical Impression: Fracture of greater tuberosity of humerus Qualifiers: Encounter type: initial encounter Fracture type: closed Fracture alignment: nondisplaced Laterality: right Qualified Code(s): S42.254A - Nondisplaced fracture of greater tuberosity of right humerus, initial encounter for closed fracture Condition: Good Instructions: ED Fx Upper Ext Follow-Up: Robetr Barbosa MD [Primary Care Provider] - [facility] [Provider Group] - Within 1 week Comments: Follow-up with orthopedics for further care. Use a sling until released by orthopedics. This should heal on its own.
[2020-06-17 12:07] VITALS: BP 153/75
== END 2020-06-17 12:10 | disposition home or self-care (01) ==
LOC: ED 10:17
DX: S42.251A Displaced fracture of greater tuberosity of right humerus, initial encounter for closed fracture (principal); W01.0XXA Fall on same level from slipping, tripping and stumbling without subsequent striking against object, initial encounter; Y92.009 Unspecified place in unspecified non-institutional (private) residence as the place of occurrence of the external cause
CPT/HCPCS: 99282; 99283

== ENCOUNTER 2020-07-05 08:00 | Outpatient (CLI) | payer MEDICARE ==
--- NOTE | 2020-07-05 15:24 | XRAY Report ---
PROCEDURE: Shoulder 2 View RT INDICATIONS: NONDISPLACED FX OF GREATER TUBEROSITY OF R HUMERUS TECHNIQUE: 2 views of the shoulder were acquired. COMPARISON: Shoulder plain films on the right 07/05/2020 (this study) and 06/17/2020. FINDINGS: Bones: No fractures or dislocations. No suspicious bony lesions. Visualized ribs appear intact. Soft tissues: No suspicious soft tissue calcifications. IMPRESSION: Healing nondisplaced greater tuberosity fracture, no change in normal alignment. Reviewed by: Indio Dover MD on 07/05/2020 3:23 PM PST Approved by: Indio Dover MD on 07/05/2020 3:23 PM PST Station ID: [id number]
== END 2020-07-05 23:59 | disposition home or self-care (01) ==
LOC: DI.N 08:00
PROVIDERS: ATTEND Orthopaedic Surgery
DX: S42.254A Nondisplaced fracture of greater tuberosity of right humerus, initial encounter for closed fracture (principal)

== ENCOUNTER 2020-07-28 17:36 | Outpatient (CLI) | payer MEDICARE ==
--- NOTE | 2020-07-29 14:53 | XRAY Report ---
PROCEDURE: Shoulder 3 View RT INDICATIONS: PX TECHNIQUE: 3 views of the shoulder were acquired. COMPARISON: None. FINDINGS: Bones: No fractures or dislocations. No suspicious bony lesions. Visualized ribs appear intact. S evere acromioclavicular degenerative narrowing. Soft tissues: No suspicious soft tissue calcifications. IMPRESSION: Severe acromioclavicular degenerative narrowing. Reviewed by: Vandana Shook MD on 07/29/2020 1:52 PM [facility] Approved by: Vandana Shook MD on 07/29/2020 1:52 PM [facility] Station ID: [id number]
== END 2020-07-28 17:37 | disposition home or self-care (01) ==
LOC: DI.S 17:36
PROVIDERS: ATTEND Orthopaedic Surgery
DX: S42.254A Nondisplaced fracture of greater tuberosity of right humerus, initial encounter for closed fracture (principal); M19.011 Primary osteoarthritis, right shoulder

== ENCOUNTER 2020-08-05 07:00 | Outpatient (CLI) | payer MEDICARE ==
--- NOTE | 2020-08-05 13:44 | XRAY Report ---
PROCEDURE: Shoulder 3 View RT INDICATIONS: RT SHOULDER PAIN TECHNIQUE: 4 views of the shoulder were acquired. COMPARISON: Right shoulder plain films 07/28/2020, 07/05/2020, 06/17/2020. FINDINGS: Bones: No new fractures or dislocations. There is a healed fracture with resultant sclerosis involv ing the base of the greater tuberosity right humeral head. No suspicious bony lesions. Visualized ri bs appear intact. Soft tissues: No suspicious soft tissue calcifications. IMPRESSION: No new trauma found. Healed greater tuberosity base fracture with reference to prior raj in film imaging. Reviewed by: Indio Dover MD on 08/05/2020 1:42 PM PST Approved by: Indio Dover MD on 08/05/2020 1:42 PM PST Station ID: [id number]
== END 2020-08-05 23:59 | disposition home or self-care (01) ==
LOC: DI.N 07:00
PROVIDERS: ATTEND Orthopaedic Surgery
DX: S42.254A Nondisplaced fracture of greater tuberosity of right humerus, initial encounter for closed fracture (principal)

== ENCOUNTER 2020-09-03 08:09 | Outpatient (CLI) | payer MEDICARE ==
[2020-09-03 15:31] LABS: BASOPHILS # (AUTO) 0.1 10^3/uL (0.0-0.1); BASOPHILS % (AUTO) 2.2 %; EOSINOPHILS # (AUTO) 0.1 10^3/uL (0.0-0.7); EOSINOPHILS % (AUTO) 2.4 %; HCT - HEMATOCRIT 43.9 % (37.0-47.0); LYMPHOCYTES # (AUTO) 1.4 10^3/uL (1.5-3.5); LYMPHOCYTES % (AUTO) 34.8 %; MEAN CORPUSCULAR HEMOGLOBIN 30.3 pg (27.0-31.0); MEAN CORPUSCULAR HGB CONC 31.9 g/dL (32.0-36.0); MEAN PLATELET VOLUME 11.3 fL (7.9-10.8); MONOCYTES # (AUTO) 0.3 10^3/uL (0.0-1.0); MONOCYTES % (AUTO) 7.3 %; NEUTROPHILS # (AUTO) 2.2 10^3/uL (1.5-6.6); NEUTROPHILS % (AUTO) 53.1 %; PLT - PLATELET COUNT 231 10^3/uL (130-450); RED BLOOD COUNT 4.62 10^6/uL (4.20-5.40); RED CELL DISTRIBUTION WIDTH 12.3 % (12.0-15.0); WHITE BLOOD COUNT 4.1 x10^3/uL (4.8-10.8)
[2020-09-03 16:08] LABS: THYROID STIMULATING HORMONE 1.33 uIU/mL (0.34-5.60)
[2020-09-03 17:45] LABS: ALBUMIN 4.8 g/dL (3.2-5.5); ALKALINE PHOSPHATASE 67 IU/L (42-121); ALT ALANINE AMINOTRANSFERASE 18 IU/L (10-60); AST ASPARTATE AMINOTRANSFERASE 24 IU/L (10-42); BILIRUBIN,TOTAL 0.8 mg/dL (0.2-1.0); BUN - BLOOD UREA NITROGEN 17 mg/dL (6-20); CALCIUM 9.2 mg/dL (8.5-10.3); CARBON DIOXIDE - CO2 28 mmol/L (21-32); CHLORIDE 101 mmol/L (101-111); CHOL/HDL RATIO 1.9 (<4.4); CHOLESTEROL 292 mg/dL; CREATININE 0.6 mg/dL (0.4-1.0); GFR - MDRD 97 (>89); GLUCOSE 97 mg/dL (70-100); HDL CHOLESTEROL 155 mg/dL; LDL CHOLESTEROL,CALCULATED 127 mg/dL; LDL/HDL RATIO 0.8 (<4.4); POTASSIUM 4.4 mmol/L (3.5-5.0); SODIUM 138 mmol/L (135-145); TOTAL PROTEIN 7.2 g/dL (6.7-8.2); TRIGLYCERIDES 49 mg/dL; VLDL CHOLESTEROL 10 mg/dL
--- OUTSIDE RECORDS SUMMARY | 2020-09-08 01:33 | EXTERNAL MEDICAL SUMMARY RPT | Continuity of Care Document ---
:1945 Demographics Phone Unavailable Preferred Language Unknown Marital Status Unknown Anabaptist Affiliation Unknown Race Unknown Ethnic Group Unknown Author Organization [facility] Address [address] [id number] Phone Social History date description facility [phone]
== END 2020-09-03 08:10 | disposition home or self-care (01) ==
LOC: LAB.S 08:09
PROVIDERS: ATTEND Internal Medicine
DX: K50.90 Crohn's disease, unspecified, without complications (principal); E78.5 Hyperlipidemia, unspecified; R53.83 Other fatigue
CPT/HCPCS: 36415; 80053; 80061; 83721; 84443; 85025

== ENCOUNTER 2022-03-21 07:45 | Outpatient (CLI) | payer MEDICARE ==
[2022-03-21 14:19] LABS: BASOPHILS # (AUTO) 0.1 10^3/uL (0.0-0.1); BASOPHILS % (AUTO) 2.8 %; EOSINOPHILS # (AUTO) 0.1 10^3/uL (0.0-0.7); EOSINOPHILS % (AUTO) 2.3 %; HCT - HEMATOCRIT 40.5 % (37.0-47.0); HGB - HEMOGLOBIN 13.4 g/dL (12.0-16.0); LYMPHOCYTES # (AUTO) 1.5 10^3/uL (1.5-3.5); LYMPHOCYTES % (AUTO) 37.7 %; MEAN CORPUSCULAR HEMOGLOBIN 30.7 pg (27.0-31.0); MEAN CORPUSCULAR HGB CONC 33.1 g/dL (32.0-36.0); MEAN CORPUSCULAR VOLUME 92.7 fL (81.0-99.0); MEAN PLATELET VOLUME 12.3 fL (7.9-10.8); MONOCYTES # (AUTO) 0.3 10^3/uL (0.0-1.0); MONOCYTES % (AUTO) 7.8 %; NEUTROPHILS # (AUTO) 1.9 10^3/uL (1.5-6.6); NEUTROPHILS % (AUTO) 49.1 %; PLT - PLATELET COUNT 172 10^3/uL (130-450); RED BLOOD COUNT 4.37 10^6/uL (4.20-5.40); RED CELL DISTRIBUTION WIDTH 12.7 % (12.0-15.0)
[2022-03-21 14:24] LABS: SLIDE REVIEW? Indicated
[2022-03-21 14:34] LABS: PLATELET ESTIMATE, MANUAL NORMAL (130-450,000) (NORMAL); PLATELET MORPHOLOGY 1+ LARGE PLATELETS (NORMAL); RBC MORPHOLOGY (MULTIPLE) NORMAL APPEARANCE (NORMAL)
== END 2022-03-21 07:46 | disposition home or self-care (01) ==
LOC: LAB.S 07:45
PROVIDERS: ATTEND Registered Nurse
DX: Z00.00 Encounter for general adult medical examination without abnormal findings (principal); R73.01 Impaired fasting glucose; E78.5 Hyperlipidemia, unspecified
CPT/HCPCS: 36415; 80053; 80061; 83721; 84443; 85025

== ENCOUNTER 2022-07-03 12:42 | Outpatient (CLI) | payer MEDICARE ==
--- NOTE | 2022-07-03 15:08 | DEXA Report ---
PROCEDURE: Dexa Spine and/or Hip INDICATIONS: POST MENOPAUSAL TECHNIQUE: Dual energy x-ray absorptiometry (DXA) was performed on a Tenfoot System. Regions measur ed are the AP Spine, femoral neck, and if needed forearm. COMPARISON: DEXA, 12/24/2017. FINDINGS: Lumbar Spine: Bone Mineral Density 0.804 g/cm/cm,T score -3.1, osteoporotic. Left Femoral Neck: Bone Mineral Density 0.619 g/cm/cm, T score -3.0, osteoporotic. Left Hip: Bone Mineral Density 0.705 g/cm/cm,T score -2.4, osteopenic. Comparison last exam, the patient's bone mineral density in lumbar spine has decreased by 8.0%. Her b one mineral density in left hip is not statistically significantly changed. (T score greater or equal to -1.0: NORMAL) (T score from -1.1 to -2.4: OSTEOPENIA) (T score less than or equal to -2.5 to: OSTEOPOROSIS) Impression: 1. Based on WHO criteria, the patient has osteoporosis. 2. There is 8% decrease in the patient's bone mineral density in lumbar spine when compared on to the last exam. Patients with diagnosis of osteoporosis or osteopenia should have regular bone mineral density assess ment. For those eligible for Medicare, routine testing is allowed once every 2 years. Testing frequ ency can be increased for patients who have rapidly progressing disease or for those who are receivin g medical therapy to restore bone mass. Reviewed by: Clarissa Victoria MD on 07/03/2022 3:07 PM PST Approved by: Clarissa Victoria MD on 07/03/2022 3:07 PM PST Station ID: [id number]
== END 2022-07-03 12:43 | disposition home or self-care (01) ==
LOC: DI 12:42
PROVIDERS: ATTEND Registered Nurse
DX: M81.0 Age-related osteoporosis without current pathological fracture (principal); Z78.0 Asymptomatic menopausal state

== ENCOUNTER 2023-09-20 07:36 | Outpatient (CLI) | payer MEDICARE ==
[2023-09-20 14:20] LABS: BASOPHILS # (AUTO) 0.1 10^3/uL (0.0-0.1); EOSINOPHILS # (AUTO) 0.1 10^3/uL (0.0-0.7); HCT - HEMATOCRIT 41.8 % (37.0-47.0); HGB - HEMOGLOBIN 13.3 g/dL (12.0-16.0); LYMPHOCYTES # (AUTO) 1.4 10^3/uL (1.5-3.5); LYMPHOCYTES % (AUTO) 36.5 %; MEAN CORPUSCULAR HEMOGLOBIN 30.1 pg (27.0-31.0); MEAN CORPUSCULAR HGB CONC 31.8 g/dL (32.0-36.0); MEAN CORPUSCULAR VOLUME 94.6 fL (81.0-99.0); MEAN PLATELET VOLUME 10.7 fL (7.9-10.8); MONOCYTES # (AUTO) 0.3 10^3/uL (0.0-1.0); MONOCYTES % (AUTO) 7.6 %; NEUTROPHILS % (AUTO) 51.6 %; PLT - PLATELET COUNT 242 10^3/uL (130-450); RED BLOOD COUNT 4.42 10^6/uL (4.20-5.40); RED CELL DISTRIBUTION WIDTH 12.6 % (12.0-15.0)
[2023-09-20 14:37] LABS: ALBUMIN 4.5 g/dL (3.2-5.5); ALBUMIN/GLOBULIN RATIO 1.8 (1.0-2.2); ALKALINE PHOSPHATASE 71 IU/L (42-121); ALT ALANINE AMINOTRANSFERASE 21 IU/L (10-60); AST ASPARTATE AMINOTRANSFERASE 24 IU/L (10-42); BILIRUBIN,TOTAL 0.6 mg/dL (0.2-1.0); BUN - BLOOD UREA NITROGEN 15 mg/dL (6-20); CALCIUM 9.5 mg/dL (8.5-10.3); CARBON DIOXIDE - CO2 30 mmol/L (21-32); CHLORIDE 101 mmol/L (101-111); CHOL/HDL RATIO 1.9 (<4.4); CHOLESTEROL 273 mg/dL; CREATININE 0.6 mg/dL (0.6-1.3); GFR - MDRD 97 (>89); GLUCOSE 92 mg/dL (74-104); HDL CHOLESTEROL 146 mg/dL; LDL CHOLESTEROL,CALCULATED 112 mg/dL; LDL/HDL RATIO 0.8 (<4.4); POTASSIUM 4.2 mmol/L (3.5-4.5); SODIUM 136 mmol/L (135-145); TRIGLYCERIDES 77 mg/dL (48-352); VLDL CHOLESTEROL 15 mg/dL
[2023-09-20 14:55] LABS: THYROID STIMULATING HORMONE 1.29 uIU/mL (0.34-5.60)
== END 2023-09-20 07:37 | disposition home or self-care (01) ==
LOC: LAB.S 07:36
PROVIDERS: ATTEND Registered Nurse
DX: Z13.9 Encounter for screening, unspecified (principal); R73.01 Impaired fasting glucose; E78.5 Hyperlipidemia, unspecified
CPT/HCPCS: 36415; 80053; 80061; 83721; 84443; 85025

== ENCOUNTER 2023-12-31 13:02 | Outpatient (CLI) | payer MEDICARE ==
--- NOTE | 2024-01-01 10:15 | Mammography Report ---
BILATERAL DIGITAL SCREENING MAMMOGRAM 3D/2D WITH EXAGGERATED CC: 12/31/2023 CLINICAL: Routine screening. Family history of breast cancer. Comparison is made to exams dated: 10/31/2018 mammogram and 02/08/2018 mammogram - [facility]. Both breasts are heterogeneously dense, which may obscure small masses (category c / 51-75% glandular tissue). No significant masses, calcifications, or other findings are seen in either breast. There has been no significant interval change. IMPRESSION: NEGATIVE There is no mammographic evidence of malignancy. A 1 year screening mammogram is recommended. Based on the Tyrer Cuzick model (a risk assessment model) the patient's lifetime risk is 2.6% and her 10 year risk is 0.0%. According to the ACR, ACS, and NCCN guidelines, an annual breast MRI exam julian g with mammogram is recommended if the patient's lifetime risk is 20% or greater. This exam was interpreted at Station ID: [id number]. NOTE: For mammograms, a report in lay terms will be sent to the patient. Approximately 15% of breast malignancies will not be visualized mammographically. In the management of a palpable breast mass, a negative mammogram must not discourage biopsy of a clinically suspicious lesion. Electronically Signed By: Johnny vincent/danette:12/31/2023 14:08:47 letter sent: No_Letter ACR BI-RADS Category 1: Negative 3341F PARENCHYMAL PATTERN: (D) - The breast(s) demonstrate(s) heterogeneously dense fibroglandular dorothy laura. BI-RADS CATEGORY: (1) - 1 RECOMMENDATION: (ANNUAL) - Recommend routine annual screening mammography. [id number] 1 year screening LATERALITY: (B)
== END 2023-12-31 13:03 | disposition home or self-care (01) ==
LOC: DI.S 13:02
PROVIDERS: ATTEND Registered Nurse
DX: Z12.31 Encounter for screening mammogram for malignant neoplasm of breast (principal); Z80.3 Family history of malignant neoplasm of breast; R92.333 Mammographic heterogeneous density, bilateral breasts

== ENCOUNTER 2024-01-25 07:00 | Outpatient (CLI) | payer MEDICARE | END 2024-01-25 23:59 | disposition home or self-care (01) | LOC: LAB.S 07:00 | PROVIDERS: ATTEND Physician Assistant Medical | DX: M54.9 Dorsalgia, unspecified (principal) | CPT/HCPCS: 87086 ==